=== PATIENT | female | born 1945 | race Caucasian/White ===

== ENCOUNTER 2016-08-17 17:03 | Inpatient (IN) | payer OTHER, BC ==
--- NOTE | 2016-08-17 19:03 | PDOC ---
History of Present Illness - General Chief Complaint: Injury Stated Complaint: FALL/LT LEG PAIN Time Seen by Provider: 08/17/16 18:58 History Source: Patient Exam Limitations: No Limitations - History of Present Illness Occurred: reports: just prior to arrival Past History - Travel Traveled outside of the country in the last 30 days: No Close contact w/someone who was outside of country & ill: No - Past Medical History Allergies/Adverse Reactions: Allergies Allergy/AdvReac Type Severity Reaction Status Date / Time No Known Drug Allergies Allergy Verified 08/17/16 17:29 Home Medications: Ambulatory Orders Atorvastatin Calcium [Lipitor] 10 mg PO DAILY 11/24/12 Fluticasone Propionate [Flovent Hfa] 1 inh IH DAILY 11/24/12 Losartan Potassium [Cozaar -] 50 mg PO DAILY 11/24/12 Timolol [Betimol] 1 drop OU DAILY 11/24/12 Tiotropium [place] [Spiriva] 1 inh IH DAILY 11/24/12 Travoprost (Benzalkonium) [Travatan 0.004% Eye Drop] 1 drop OU HS 11/24/12 Ca/D3/Mag#11/Zinc/Industrial Gas Fitter/Rene/Bor [Caltrate 600+D Plus Tablet] 1 each PO DAILY 10/28 Diltiazem HCl [Diltiazem ER] 120 mg PO DAILY 08/17/16 Anemia: No Asthma: Yes Cancer: Yes (RIGHT BREAST 2001,lung ca) Cardiac Disorders: No CVA: No COPD: Yes CHF: No Dementia: No Diabetes: No GI Disorders: No Disorders: No HTN: Yes Hypercholesterolemia: Yes Liver Disease: No Seizures: No Thyroid Disease: Yes (BENIGN NODULE) - Surgical History Abdominal Surgery: No Appendectomy: No Cardiac Surgery: No Cholecystectomy: No Lung Surgery: Yes (LUNG CA) Neurologic Surgery: No Orthopedic Surgery: No - Psycho/Social/Smoking Cessation Hx Suicidal Ideation: No Smoking Status: No Smoking History: Former smoker Have you smoked in the past 12 months: No Number of Cigarettes Smoked Daily: 0 If you are a former smoker, when did you quit?: 2010 Information on smoking cessation initiated: No Hx Alcohol Use: Yes (SOCIAL) Drug/Substance Use Hx: No Substance Use Type: None Hx Substance Use Treatment: No Trauma Specific PMHX - Complaint Specific PMHX Back Injury: No Neck Injury: No Review of Systems - Review of Systems Able to Perform ROS?: Yes Comments:: 08/17/16 19:02 CONSTITUTIONAL: Absent: fever, chills, diaphoresis, generalized weakness, malaise, loss of appetite HEENT: Absent: rhinorrhea, nasal congestion, throat pain, throat swelling, difficulty swallowing, mouth swelling, ear pain, eye pain, visual Changes CARDIOVASCULAR: Absent: chest pain, loss of consciousness, palpitations, irregular heart rate, peripheral edema RESPIRATORY: Absent: cough, shortness of breath, dyspnea with exertion, orthopnea, wheezing, stridor, hemoptysis GASTROINTESTINAL: Absent: abdominal pain, abdominal distension, nausea, vomiting, diarrhea, constipation, melena, hematochezia GENITOURINARY: Absent: dysuria, frequency, urgency, hesitancy, hematuria, flank pain, genital pain MUSCULOSKELETAL: Absent: myalgia, arthralgia, joint swelling SKIN: Absent: rash, itching, pallor HEMATOLOGIC/IMMUNOLOGIC: Absent: easy bleeding, easy bruising, lymphadenopathy, frequent infections ENDOCRINE: Absent: unexplained weight gain, unexplained weight loss, heat intolerance, cold intolerance NEUROLOGIC: Absent: headache, focal weakness or paresthesias, dizziness, unsteady gait, seizure, mental status changes, bladder or bowel incontinence PSYCHIATRIC: Absent: anxiety, depression, suicidal or homicidal ideation, hallucinations. Is the patient limited Citizen Of [place] proficient: No *Physical Exam - Vital Signs Last Vital Signs Temp Pulse Resp BP Pulse Ox 97.7 F 109 H 20 121/67 94 L 08/17/16 17:30 08/17/16 17:30 08/17/16 17:30 08/17/16 17:30 08/17/16 17:30 - Physical Exam Comments: 08/17/16 19:03 GENERAL: Well developed, well nourished. Awake and alert. No acute distress. HEENT: Normocephalic, atraumatic. PERRLA, EOMI. No conjunctival pallor. Sclera are non- icteric. Moist mucous membranes. Oropharynx is clear. NECK: Supple. Full ROM. No JVD. Carotid pulses 2+ and symmetric, without bruits. No thyromegaly. No lymphadenopathy. CARDIOVASCULAR: Regular rate and rhythm. No murmurs, rubs, or gallops. Distal pulses are 2+ and symmetric. PULMONARY: No evidence of respiratory distress. Lungs clear to auscultation bilaterally. No wheezing, rales or rhonchi. ABDOMINAL: Soft. Non-tender. Non-distended. No rebound or guarding. No organomegaly. Normoactive bowel sounds. MUSCULOSKELETAL Normal range of motion at all joints. No bony deformities or tenderness. No CVA tenderness. EXTREMITIES: No cyanosis. No clubbing. No edema. No calf tenderness. SKIN: Warm and dry. Normal capillary refill. No rashes. No jaundice. NEUROLOGICAL: Alert, awake, appropriate. Cranial nerves 2-12 intact. No deficits to light touch and temperature in face, upper extremities and lower extremities. No motor deficits in the in face, upper extremities and lower extremities. Normoreflexic in the upper and lower extremities. Normal speech. Toes are down- going bilaterally. Gait is normal without ataxia. PSYCHIATRIC: Cooperative. Good eye contact. Appropriate mood and affect. ED Treatment Course - LABORATORY CBC & Chemistry Diagram: 08/17/16 18:44 08/17/16 18:50 - RADIOLOGY Radiograph Interpretation: 08/17/16 19:46 CXR 2v: Mass to right upper lobe/no change from previous Pt h/o lung CA Port to left upper chest otherwise, no infiltrates Progress Note - Progress Note Progress Note: 71-year-old female presents to the emergency department via EMS without any complaints at this time. Patient states she slipped out of her slippers earlier when getting up from her couch and almost fell to the ground. She called EMS and signed an AMA. This evening, she tried to go to the bathroom but her slippers slid while walking on the carpet and she eased herself onto the floor. Patient denies any headache, dizziness, lightheadedness, visual disturbance, neck pain, back pain, chest pain, shortness of breath, abdominal pains, extremity numbness or tingling sensation. 2028hrs; Called Dr. Cowan [phone] 2053hrs: 2nd call [place] [phone] *DC/Admit/Observation/Transfer Diagnosis at time of Disposition: Urinary tract infection Qualifiers: Urinary tract infection type: acute cystitis Hematuria presence: without hematuria Qualified Code(s): N30.00 - Acute cystitis without hematuria Fall Qualifiers: Encounter type: initial encounter Qualified Code(s): W19.XXXA - Unspecified fall, initial encounter - Discharge Dispostion Condition at time of disposition: Guarded Admit: Yes
[2016-08-17 19:29] LABS: MCH 25.7 pg (25.7-33.7); MCHC 31.8 g/dl (32.0-36.0); MEAN CELL VOLUME 80.7 fl (80-96); MEAN PLT VOLUME 8.1 fl (7.5-11.1); PLATELET COUNT 396 K/MM3 (134-434); RDW 18.2 % (11.6-15.6)
[2016-08-17 19:29] LABS: URINE APPEARANCE SLCLOUDY; URINE BILIRUBIN NEGATIVE (NEGATIVE); URINE COLOR YELLOW; URINE GLUCOSE (UA) NEGATIVE (NEGATIVE); URINE KETONE TRACE (NEGATIVE); URINE NITRITE POSITIVE (NEGATIVE); URINE UROBILINOGEN NEGATIVE E.U./dl (0.2-1.0)
[2016-08-17 19:30] LABS: URINE BLOOD 1+ (NEGATIVE); URINE LEUK ESTERASE 2+ (NEGATIVE); URINE PROTEIN 1+ (NEGATIVE)
[2016-08-17 19:40] LABS: INR 1.17 (0.82-1.09); PROTHROMBIN TIME (PATIENT) 12.9 SEC (9.98-11.88)
[2016-08-17 19:50] LABS: ALBUMIN 3.5 g/dl (3.4-5.0); ANION GAP 12 (8-16); BILIRUBIN,TOTAL 0.7 mg/dL (0.2-1.0); CALCIUM 10.5 mg/dL (8.5-10.1); CO2 26 mmol/L (21-32); CREATININE 0.7 mg/dL (0.55-1.02); GLUCOSE,RANDOM 91 mg/dL (74-106); SGOT/AST 16 U/L (15-37); SGPT/ALT 13 U/L (12-78); TOT PROT 7.3 g/dl (6.4-8.2)
[2016-08-17 19:53] LABS: ALK PHOS 90 U/L (45-117); TROPONIN I < 0.02 ng/ml (0.00-0.05)
[2016-08-17 20:00] LABS: URINE BACTERIA MODERATE /hpf (NONE SEEN); URINE HYALINE CAST 1 /lpf; URINE MUCUS RARE; URINE RBC 2 /hpf (0-3); URINE WBC 33 /hpf (3-5)
[2016-08-17 21:01] LABS: PLATELET ESTIMATE ADEQUATE (NORMAL); TOXIC GRANULATION 1+
[2016-08-17] MEDS ORDERED: CEFTRIAXONE 1,000 MG in DEXTROSE 5%-WATER - 50 ML IVPB ONE (21:03)
[2016-08-17] MEDS ORDERED: CEFTRIAXONE 50 ML ONE (21:10)
[2016-08-17] MEDS: ATORVASTATIN CA 10 MG TABLET (FP) PO SCH (23:32)
[2016-08-17] MEDS: LATANOPROST 0.005% OPHTH SOLN 2.5ML BOTTLE OU SCH (23:33)
[2016-08-18 00:30] VITALS: BMI 19.3
--- NOTE | 2016-08-18 08:59 | PN ---
Progress Note, Physician Chief Complaint: ID Says she fell at home Denies any fever chill urinary complaints - Current Medication List Current Medications: Active Medications Aclidinium [place] (Tudorza -) 1 puff IH BID [facility] Atorvastatin Calcium (Lipitor -) 10 mg PO HS [facility] Last Admin: 08/17/16 23:32 Dose: Not Given Diltiazem HCl (Cardizem Cd -) 120 mg PO DAILY [facility] Latanoprost (Xalatan 0.005% Eye Drops -) 1 drop OU HS [facility] Last Admin: 08/17/16 23:33 Dose: Not Given Losartan Potassium (Cozaar -) 50 mg PO DAILY [facility] Non-Formulary Medication (Ca/D3/Mag#11/Zinc/Professional Driver/Rene/Bor [Caltrate 600+D Plus Tablet]) 1 each PO DAILY [facility] Non-Formulary Medication (Fluticasone Propionate [Flovent Hfa]) 1 inh IH DAILY [place] Timolol Maleate (Timoptic 0.25%) 1 drop OU DAILY [facility] - Objective Vital Signs: Vital Signs Temperature 98 F 08/18/16 05:52 Pulse Rate 96 H 08/18/16 05:52 Respiratory Rate 20 08/18/16 05:52 Blood Pressure 110/60 08/18/16 05:52 O2 Sat by Pulse Oximetry (%) 97 08/18/16 00:30 Constitutional: Yes: No Distress Neck: Yes: WNL, Supple Cardiovascular: Yes: Regular Rate and Rhythm, S1, S2, Other (port). No: Murmur Respiratory: Yes: WNL, Regular, CTA Bilaterally Gastrointestinal: Yes: Soft. No: Tenderness, Rebound Edema: No Labs: INR, PTT INR 1.17 (0.82-1.09) H 08/17/16 18:44 Problem List - Problems (1) UTI (urinary tract infection) Code(s): N39.0 - URINARY TRACT INFECTION, SITE NOT SPECIFIED Qualifiers: Urinary tract infection type: acute cystitis Hematuria presence: without hematuria Qualified Code(s): N30.00 - Acute cystitis without hematuria (2) Lung cancer Code(s): C34.90 - MALIGNANT NEOPLASM OF UNSP PART OF UNSP BRONCHUS OR LUNG (3) Leukocytosis Code(s): D72.829 - ELEVATED WHITE BLOOD CELL COUNT, UNSPECIFIED Assessment/Plan Laboratory Tests 08/17/16 08/17/1608/17/17 18:44 18:50 19:05 WBC 23.0 H Hgb 11.3 Hct 35.4 Plt Count 396 Neutrophils % 78.0 Monocytes % 6.0 D Basophils % 1.0 Band Neutrophils 1.0 BUN 18 D Creatinine 0.7 Urine WBC 33 Urine Bacteria Moderate Assessment Falls Leukocytosis but looks well Chemotherapy for lung CA UTI Plan Blood cultures Vancomycin 1 gr and continue Ceftriax[address] Dr Palacios to see Nacho COLLINS
[2016-08-18 09:16] LABS: BASOPHIL 0.5 % (0-2.0); EOSINOPHIL 0.8 % (0-4.5); MCH 25.5 pg (25.7-33.7); MCHC 31.9 g/dl (32.0-36.0); MEAN PLT VOLUME 7.5 fl (7.5-11.1); PLATELET COUNT 380 K/MM3 (134-434); WHITE BLOOD COUNT 20.8 K/mm3 (4.0-10.0)
[2016-08-18] MEDS ORDERED: VANCOMYCIN 1 GRAM (PRE-DOCKED) 250 ML IVPB ONE (09:30)
[2016-08-18 09:43] LABS: ALBUMIN 3.1 g/dl (3.4-5.0); ANION GAP 10 (8-16); CALCIUM 10.2 mg/dL (8.5-10.1); CO2 27 mmol/L (21-32); CREATININE 0.8 mg/dL (0.55-1.02); GLUCOSE,RANDOM 156 mg/dL (74-106); SGOT/AST 15 U/L (15-37); SGPT/ALT 14 U/L (12-78); TOT PROT 6.6 g/dl (6.4-8.2)
[2016-08-18] MEDS: LOSARTAN POTASSIUM 25 MG TABLET PO SCH (09:45)
[2016-08-18 09:46] LABS: ALK PHOS 80 U/L (45-117); BILIRUBIN,TOTAL 0.6 mg/dL (0.2-1.0); TROPONIN I < 0.02 ng/ml (0.00-0.05)
[2016-08-18] MEDS: ACLIDINIUM BROMIDE 400 MCG/INH AERO.POWD IH SCH ×2 (09:49→21:21)
[2016-08-18] MEDS: TIMOLOL 0.25% OPHTHALMIC SOL 5 ML BOTTLE OU SCH (09:50)
[2016-08-18] MEDS ORDERED: CALCIUM 500MG/VIT-D 200 UNITS COMBO TABLET (FP) PO SCH (10:00)
--- NOTE | 2016-08-18 10:13 | CONS ---
DATE OF CONSULTATION: DATE OF DICTATION: 08/18/2016 HISTORY OF PRESENT ILLNESS: This is a 71-year-old female with a known history of lung cancer who I am asked to see after she was admitted for falls at home yesterday and was noted to have an elevated white count of 23,000. The patient has been previously admitted to [facility] and well known in particular to Dr. Palacios, who has been following her for lung cancer. She has a prior history of breast carcinoma, status post chemotherapy and hormonal therapy, and now more recently diagnosed with lung cancer for which she has been treated with Alimta, carboplatinum, and Avastin. She has been chronically anemic in the 23 to 24 range and required blood transfusions. She also has received Neulasta apparently for adjunctive treatment with her chemotherapy. She had no fever on admission and was given a dose of ceftriaxone after a urine culture showed some white cells. The patient has a history of UTIs in the past but currently denies any urinary complaints. In fact, she has no complaints whatsoever and looks well. She denied chills, abdominal pain, cough, or shortness of breath. PAST MEDICAL HISTORY: As noted above. Benign thyroid nodule and hyperlipidemia. MEDICATIONS AT HOME: Chemotherapy as outlined. ALLERGIES: None known. SOCIAL HISTORY: Former heavy cigarette smoker; quit in 2010. Occasional alcohol use but no substance abuse history. FAMILY HISTORY: Reviewed and noncontributory. REVIEW OF SYSTEMS: Respiratory: No cough or shortness of breath, hemoptysis. Cardiac: No chest pain, palpitations, heart murmur. Gastrointestinal: No nausea, vomiting, abdominal pain, diarrhea. Genitourinary: No dysuria, hematuria, urinary frequency. PHYSICAL EXAMINATION: General: Revealed a pleasant elderly woman in no acute distress. Vital Signs: Temperature was 98, pulse 96, blood pressure 110/60, respirations 20. Neck: Supple. Chest: Symmetrical with a left LifePort in place. Lungs: Clear to P and A. Heart: S1, S2. Regular rhythm. No murmur. Abdomen: Soft, nontender, without hepatosplenomegaly. Extremities: Without clubbing, cyanosis. No edema. LABORATORY DATA: The white count was 23,000 with a hemoglobin of 11, platelets of 396 with 78% polys, 11 lymphocytes, 6 monocytes, 1 eosinophil, 1 basophil, and 1 band. The INR was 1.17. BUN 18, creatinine 0.7. Urinalysis with 2+ leukocyte esterase, 2 RBCs, 33 WBCs, and moderate bacteria noted. A chest x-ray was reviewed and shows a large mass in the right mid lung area measuring 10.5 cm with COPD changes and bullae noted. ASSESSMENT: A 71-year-old female admitted with falls at home, no fever, noted to have a white count of 23,000 and the absence of any obvious symptomatology. Incidental finding of white cells on her urinalysis, but this may be chronic and clinically insignificant. It may be that her leukemoid reaction is secondary to recent Neulasta; however, given her fragile status as a chemotherapy patient, I will give her 1 g of vancomycin x1 pending blood cultures and continue ceftriaxone pending urine culture and await Dr. Palacios's consultation regarding whether or not she may have received Neulasta recently or whether her WBC elevated at baseline. CARTER STEVEN M.D. [id number] MTDD
--- NOTE | 2016-08-18 12:38 | HP ---
Admitting History and Physical - Primary Care Physician PCP: Maxim Cowan - Admission Chief Complaint: UTI. FALL History Source: Medical Record - Smoking History Smoking history: Former smoker Have you smoked in the past 12 months: No Aproximately how many cigarettes per day: 0 If you are a former smoker, when did you quit?: 2010 - Alcohol/Substance Use Hx Alcohol Use: Yes (SOCIAL) Home Medications - Allergies Allergies/Adverse Reactions: Allergies Allergy/AdvReac Type Severity Reaction Status Date / Time No Known Drug Allergies Allergy Verified 08/17/16 17:29 - Home Medications Home Medications: Ambulatory Orders Atorvastatin Calcium [Lipitor] 10 mg PO DAILY 11/24/12 Fluticasone Propionate [Flovent Hfa] 1 inh IH DAILY 11/24/12 Losartan Potassium [Cozaar -] 50 mg PO DAILY 11/24/12 Timolol [Betimol] 1 drop OU DAILY 11/24/12 Tiotropium [place] [Spiriva] 1 inh IH DAILY 11/24/12 Travoprost (Benzalkonium) [Travatan 0.004% Eye Drop] 1 drop OU HS 11/24/12 Ca/D3/Mag#11/Zinc/Radio Communications Mechanician/Rnee/Bor [Caltrate 600+D Plus Tablet] 1 each PO DAILY 10/28 Diltiazem HCl [Diltiazem ER] 120 mg PO DAILY 08/17/16 Review of Systems - Review of Systems Constitutional: denies: Chills, Fever Cardiovascular: denies: Chest Pain Respiratory: denies: SOB Gastrointestinal: denies: Abdominal Pain Neurological: reports: Weakness (NEW LUE WEAKNESS) Physical Examination Vital Signs: Vital Signs Temperature 98.4 F 08/18/16 10:00 Pulse Rate 114 H 08/18/16 10:00 Respiratory Rate 20 08/18/16 10:00 Blood Pressure 100/58 08/18/16 10:00 O2 Sat by Pulse Oximetry (%) 97 08/18/16 00:30 Constitutional: Yes: Calm Cardiovascular: Yes: Regular Rate and Rhythm, S1, S2 Respiratory: Yes: CTA Bilaterally Gastrointestinal: Yes: Normal Bowel Sounds, Soft Edema: No ...Motor Strength: LUE (2-3/5) Labs: CBC, BMP 08/18/16 09:00 08/18/16 09:00 Imaging - Results Chest X-ray: Report Reviewed Problem List - Problems (1) Falls Code(s): W19.XXXA - UNSPECIFIED FALL, INITIAL ENCOUNTER Qualifiers: Encounter type: initial encounter Qualified Code(s): W19.XXXA - Unspecified fall, initial encounter (2) Lung cancer Code(s): C34.90 - MALIGNANT NEOPLASM OF UNSP PART OF UNSP BRONCHUS OR LUNG (3) UTI (urinary tract infection) Code(s): N39.0 - URINARY TRACT INFECTION, SITE NOT SPECIFIED Qualifiers: Urinary tract infection type: acute cystitis Hematuria presence: without hematuria Qualified Code(s): N30.00 - Acute cystitis without hematuria (4) Asthma Code(s): J45.909 - UNSPECIFIED ASTHMA, UNCOMPLICATED (5) COPD (chronic obstructive pulmonary disease) Code(s): J44.9 - CHRONIC OBSTRUCTIVE PULMONARY DISEASE, UNSPECIFIED (6) HTN (hypertension) Code(s): I10 - ESSENTIAL (PRIMARY) HYPERTENSION (7) Left arm weakness Code(s): M62.81 - MUSCLE WEAKNESS (GENERALIZED) Assessment/Plan 71-year-old female presents to the emergency department via EMS without any complaints at this time. Patient states she slipped out of her slippers earlier when getting up from her couch and almost fell to the ground. She called EMS and signed an AMA. This evening, she tried to go to the bathroom but her slippers slid while walking on the carpet and she eased herself onto the floor. Patient denies any headache, dizziness, lightheadedness, visual disturbance, neck pain, back pain, chest pain, shortness of breath, abdominal pains, extremity numbness or tingling sensation. (1) Falls Code(s): W19.XXXA - UNSPECIFIED FALL, INITIAL ENCOUNTER Qualifiers: Encounter type: initial encounter Qualified Code(s): W19.XXXA - Unspecified fall, initial encounter LIKELY MECHANICAL PT CONSULTED (2) Lung cancer Code(s): C34.90 - MALIGNANT NEOPLASM OF UNSP PART OF UNSP BRONCHUS OR LUNG CXr -> KNOWN R MASS. R/O R PTX -> PULM Ca++ >10 HOME Ca STOPPED RENAL CONSULTED (3) UTI (urinary tract infection) Code(s): N39.0 - URINARY TRACT INFECTION, SITE NOT SPECIFIED Qualifiers: Urinary tract infection type: acute cystitis Hematuria presence: without hematuria Qualified Code(s): N30.00 - Acute cystitis without hematuria APPRECIATE ID CONSULT IV ABx F/U CULTURES (4) Asthma Code(s): J45.909 - UNSPECIFIED ASTHMA, UNCOMPLICATED ALB NEB PRN (5) COPD (chronic obstructive pulmonary disease) Code(s): J44.9 - CHRONIC OBSTRUCTIVE PULMONARY DISEASE, UNSPECIFIED (6) HTN (hypertension) Code(s): I10 - ESSENTIAL (PRIMARY) HYPERTENSION ACCEPTABLE CONTROL MONITOR (7) Left arm weakness Code(s): M62.81 - MUSCLE WEAKNESS (GENERALIZED) NEW DENY HEAD TRAUMA APPRECIATE RENAL NOTE -> AGREE - F/U CTB & XRay HISTOLOGY TECHNOLOGIST FM
[2016-08-18] MEDS ORDERED: ALBUTEROL SO4 0.083% IH SOL 2.5 MG/3 ML VIAL.NEB. NEB PRN (12:43)
--- NOTE | 2016-08-18 14:21 | CONSULT ---
Consult - text type - Consultation Consultation Note: Renal Consult for hypercalcemia This is a 71 year old woman with PMhx of Breast Ca s/p Chemo and hormonal therapy, Adenocarcinoma of the Lung currently on chemotherapy presented s/p mechanical fall at home and found to have Corrected CA of 10.8. Pt states that she has had an elevated CA in the past that was attributed to her lung Ca. Pt denies any POLANCO, confusion, lethargy, weakness, abd pain, flank pain. No hx of kidney stones. No POLANCO, chest pain, sob, abd pain, N/V/D. Pt unable to raise her left arm. can close her wrists and has sensation. PMhx: as above Allergies: NKDA Family Hx: NC Social Hx: Former Smoker ROS: as per HPI, all other pertinent ros negative Home Meds: Home Medications Medication Instructions Recorded Atorvastatin Calcium [Lipitor] 10 mg PO DAILY 11/24/12 Fluticasone Propionate [Flovent 1 inh IH DAILY 11/24/12 Hfa] Losartan Potassium [Cozaar -] 50 mg PO DAILY 11/24/12 Timolol [Betimol] 1 drop OU DAILY 11/24/12 Tiotropium [place] [Spiriva] 1 inh IH DAILY 11/24/12 Travoprost (Benzalkonium) 1 drop OU HS 11/24/12 [Travatan 0.004% Eye Drop] Ca/D3/Mag#11/Zinc/Adobe Architect/Rene/Bor 1 each PO DAILY 07/18/15 [Caltrate 600+D Plus Tablet] Diltiazem HCl [Diltiazem ER] 120 mg PO DAILY 08/17/16 Vital Signs Temperature 98.4 F 08/18/16 10:00 Pulse Rate 114 H 08/18/16 10:00 Respiratory Rate 20 08/18/16 10:00 Blood Pressure 100/58 08/18/16 10:00 O2 Sat by Pulse Oximetry (%) 97 08/18/16 00:30 Intake & Output 08/15/16 08/16/16 08/17/16 08/18/16 23:59 23:59 23:59 23:59 Intake Total 100 100 Output Total 2 Balance 100 98 Weight 122 lb 113 lb Gen: NAD, awake and alert HEENT: NC/AT, MMM, No JVD CVS: RRR, No M/R Lungs: Dec BS left lung Abd: soft NT/ND Ext: No edema, clubbing or cyanosis. Left shoulder weakness : No bladder distension Neuro: AAOX3, weakness of left shoulder CBC, BMP 08/18/16 09:00 08/18/16 09:00 Current Medications Aclidinium [place] (Tudorza -) 1 puff IH BID [facility] Last Admin: 08/18/16 09:49 Dose: Not Given Albuterol Sulfate (Ventolin 0.083% Nebulizer Soln -) 1 amp NEB Q4H PRN PRN Reason: SHORT OF BREATH/WHEEZING Atorvastatin Calcium (Lipitor -) 10 mg PO HS [facility] Last Admin: 08/17/16 23:32 Dose: Not Given Diltiazem HCl (Cardizem Cd -) 120 mg PO DAILY [facility] Last Admin: 08/18/16 09:45 Dose: 120 mg Latanoprost (Xalatan 0.005% Eye Drops -) 1 drop OU HS [facility] Last Admin: 08/17/16 23:33 Dose: Not Given Losartan Potassium (Cozaar -) 50 mg PO DAILY [facility] Last Admin: 08/18/16 09:45 Dose: 50 mg Non-Formulary Medication (Fluticasone Propionate [Flovent Hfa]) 1 inh IH DAILY [facility] Timolol Maleate (Timoptic 0.25%) 1 drop OU DAILY [facility] Last Admin: 08/18/16 09:50 Dose: Not Given A/P 71 year old woman with PMhx of Breast Ca s/p Chemo and hormonal therapy, Adenocarcinoma of the Lung currently on chemotherapy presented s/p mechanical fall at home and found to have Corrected CA of 10.8. #Hypercalcemia of Malignancy Corrected Ca is 10.8 Check PTH, PTH related peptide Would continue Gentle IVF hydration at this time No indication for calcitionin or bisphosphatate at this time Trend Ca and Alb #Left shoulder weakness s/p Fall unlikely to be CVA but since pt says that this is new onset and that she had a unwitnessed fall will check CT of the head Check left shoulder X-ray to r/o fracture or dislocation #Lung Ca Supportive Care Chemo as per Oncology #Hypertension Continue Losartan, Diltizem Thank you Will follow Vince Cole DO
[2016-08-18] MEDS ORDERED: SODIUM CHLORIDE 1,000 ML IV SCH (14:30)
--- NOTE | 2016-08-18 17:52 | EKG ---
Test Reason : Blood Pressure : / mmHG Vent. Rate : 106 BPM Atrial Rate : 106 BPM P-R Int : 142 ms QRS Dur : 072 ms QT Int : 324 ms P-R-T Axes : 070 061 058 degrees QTc Int : 430 ms POOR DATA QUALITY, INTERPRETATION MAY BE ADVERSELY AFFECTED SINUS TACHYCARDIA OTHERWISE NORMAL ECG WHEN COMPARED WITH ECG OF 01-JAN-2013 12:01, VENT. RATE HAS INCREASED BY 47 BPM Confirmed by SHAWN COLLINS, NUPUR ([id number]) on 08/18/2016 5:51:26 PM Referred By: Confirmed By:NUPUR ESCOBAR MD
[2016-08-18] MEDS ORDERED: PT OWN MED DRAWER 7, Y5N ONE (21:18)
[2016-08-18] MEDS: ATORVASTATIN CA 10 MG TABLET (FP) PO SCH (21:21)
[2016-08-18] MEDS: LATANOPROST 0.005% OPHTH SOLN 2.5ML BOTTLE OU SCH (21:22)
[2016-08-19] MEDS ORDERED: PT OWN MED DRAWER 7, Y5N ONE ×2 (02:23→21:54)
[2016-08-19 08:34] LABS: BASOPHIL 0.4 % (0-2.0); EOSINOPHIL 1.6 % (0-4.5); MCH 25.8 pg (25.7-33.7); MCHC 31.9 g/dl (32.0-36.0); MEAN CELL VOLUME 80.9 fl (80-96); MEAN PLT VOLUME 7.8 fl (7.5-11.1); NEUTROPHILS 79.1 % (42.8-82.8); PLATELET COUNT 302 K/MM3 (134-434); RDW 18.2 % (11.6-15.6); WHITE BLOOD COUNT 14.4 K/mm3 (4.0-10.0)
[2016-08-19 08:39] LABS: ALBUMIN 2.7 g/dl (3.4-5.0); ALK PHOS 63 U/L (45-117); ANION GAP 12 (8-16); BILIRUBIN,TOTAL 0.4 mg/dL (0.2-1.0); CALCIUM 8.9 mg/dL (8.5-10.1); CO2 24 mmol/L (21-32); CREATININE 0.6 mg/dL (0.55-1.02); GLUCOSE,RANDOM 84 mg/dL (74-106); SGOT/AST 12 U/L (15-37); SGPT/ALT 10 U/L (12-78); TOT PROT 5.8 g/dl (6.4-8.2)
[2016-08-19] MEDS: LOSARTAN POTASSIUM 25 MG TABLET PO SCH (09:50)
[2016-08-19] MEDS: ACLIDINIUM BROMIDE 400 MCG/INH AERO.POWD IH SCH ×2 (09:53→21:56)
[2016-08-19] MEDS: TIMOLOL 0.25% OPHTHALMIC SOL 5 ML BOTTLE OU SCH (09:53)
--- NOTE | 2016-08-19 10:00 | PN ---
Progress Note, Physician Chief Complaint: NO CHANGE NO DISTRESS UNDERSTANDS THAT HAS BRAIN METS - Current Medication List Current Medications: Active Medications Aclidinium [place] (Tudorza -) 1 puff IH BID [facility] Last Admin: 08/19/16 09:53 Dose: Not Given Albuterol Sulfate (Ventolin 0.083% Nebulizer Soln -) 1 amp NEB Q4H PRN PRN Reason: SHORT OF BREATH/WHEEZING Atorvastatin Calcium (Lipitor -) 10 mg PO HS [facility] Last Admin: 08/18/16 21:21 Dose: 10 mg Diltiazem HCl (Cardizem Cd -) 120 mg PO DAILY [facility] Last Admin: 08/19/16 09:50 Dose: 120 mg Sodium Chloride (Normal Saline -) 1,000 mls @ 83 mls/hr IV ASDIR [facility] Stop: 08/19/16 14:29 Last Admin: 08/18/16 14:58 Dose: 83 mls/hr Latanoprost (Xalatan 0.005% Eye Drops -) 1 drop OU HS [facility] Last Admin: 08/18/16 21:22 Dose: 1 drop Losartan Potassium (Cozaar -) 50 mg PO DAILY [facility] Last Admin: 08/19/16 09:50 Dose: 50 mg Non-Formulary Medication (Fluticasone Propionate [Flovent Hfa]) 1 inh IH DAILY [facility] Timolol Maleate (Timoptic 0.25%) 1 drop OU DAILY [facility] Last Admin: 08/19/16 09:53 Dose: Not Given - Objective Vital Signs: Vital Signs Temperature 98.2 F 08/19/16 05:59 Pulse Rate 20 L 08/19/16 05:59 Respiratory Rate 20 08/19/16 05:59 Blood Pressure 110/78 08/19/16 05:59 O2 Sat by Pulse Oximetry (%) 97 08/18/16 00:30 Constitutional: Yes: Calm Cardiovascular: Yes: Regular Rate and Rhythm, S1, S2 Respiratory: Yes: CTA Bilaterally Gastrointestinal: Yes: Normal Bowel Sounds, Soft Edema: No ...Motor Strength: LUE (2-3/5) Labs: CBC, BMP 08/19/16 06:20 08/19/16 06:20 INR, PTT INR 1.17 (0.82-1.09) H 08/17/16 18:44 Problem List - Problems (1) Falls Code(s): W19.XXXA - UNSPECIFIED FALL, INITIAL ENCOUNTER Qualifiers: Encounter type: initial encounter Qualified Code(s): W19.XXXA - Unspecified fall, initial encounter (2) Lung cancer Code(s): C34.90 - MALIGNANT NEOPLASM OF UNSP PART OF UNSP BRONCHUS OR LUNG (3) UTI (urinary tract infection) Code(s): N39.0 - URINARY TRACT INFECTION, SITE NOT SPECIFIED Qualifiers: Urinary tract infection type: acute cystitis Hematuria presence: without hematuria Qualified Code(s): N30.00 - Acute cystitis without hematuria (4) Asthma Code(s): J45.909 - UNSPECIFIED ASTHMA, UNCOMPLICATED (5) COPD (chronic obstructive pulmonary disease) Code(s): J44.9 - CHRONIC OBSTRUCTIVE PULMONARY DISEASE, UNSPECIFIED (6) HTN (hypertension) Code(s): I10 - ESSENTIAL (PRIMARY) HYPERTENSION (7) Left arm weakness Code(s): M62.81 - MUSCLE WEAKNESS (GENERALIZED) Assessment/Plan 71-year-old female presents to the emergency department via EMS without any complaints at this time. Patient states she slipped out of her slippers earlier when getting up from her couch and almost fell to the ground. She called EMS and signed an AMA. This evening, she tried to go to the bathroom but her slippers slid while walking on the carpet and she eased herself onto the floor. Patient denies any headache, dizziness, lightheadedness, visual disturbance, neck pain, back pain, chest pain, shortness of breath, abdominal pains, extremity numbness or tingling sensation. (1) Falls Code(s): W19.XXXA - UNSPECIFIED FALL, INITIAL ENCOUNTER Qualifiers: Encounter type: initial encounter Qualified Code(s): W19.XXXA - Unspecified fall, initial encounter LIKELY MECHANICAL PT CONSULTED (2) Lung cancer Code(s): C34.90 - MALIGNANT NEOPLASM OF UNSP PART OF UNSP BRONCHUS OR LUNG CXr -> KNOWN R MASS. R/O R PTX -> PULM HYPERCa++ RESOLVED HOME Ca STOPPED RENAL CONSULT NOTED -> F/U W/U SQ HEPARIN -> CONSIDER LOVENOX FOR VTE Px (3) UTI (urinary tract infection) Code(s): N39.0 - URINARY TRACT INFECTION, SITE NOT SPECIFIED Qualifiers: Urinary tract infection type: acute cystitis Hematuria presence: without hematuria Qualified Code(s): N30.00 - Acute cystitis without hematuria APPRECIATE ID CONSULT IV ABx UCx +meli (4) Asthma Code(s): J45.909 - UNSPECIFIED ASTHMA, UNCOMPLICATED ALB NEB PRN (5) COPD (chronic obstructive pulmonary disease) Code(s): J44.9 - CHRONIC OBSTRUCTIVE PULMONARY DISEASE, UNSPECIFIED (6) HTN (hypertension) Code(s): I10 - ESSENTIAL (PRIMARY) HYPERTENSION ACCEPTABLE CONTROL MONITOR (7) Left arm weakness Code(s): M62.81 - MUSCLE WEAKNESS (GENERALIZED) NEW DENY HEAD TRAUMA APPRECIATE RENAL NOTE -> AGREE CTB SHOWS BRAIN METS (2016 MRI BRAIN NEG) -> NEURO/ONCO/NEUROSURG ON CASE XRay NEG IV STEROIDS WAX PATTERN COATER FM
--- NOTE | 2016-08-19 10:17 | PN ---
Progress Note (short form) - Note Progress Note: NEUROSURGERY CONSULT DICTATED R breast CA 2000 s/p Chemo and hormonal therapy, Adenocarcinoma of the Lung currently on chemotherapy c/o mechanical fall at home ""slipping out of my slippers"). Pt denies any POLANCO, confusion, lethargy, N/V. No sz. Some L arm weakness. PE: AF, VSS General- healed upper sternal, R chest, L chest (port) incisions. CN- intact except minimal assymmetry L nasolabial fold; Motor- L UE 2-3/5 except left hand 3-4-; L LE 4/5; Sensation- intact LT; DTR- 3+; L toe upgoing; cerebellar- intact R FTN, L sided limited by weakness Head CT- R frontal convexity 1.5 cm, R basal ganglia/thalamic 2.5 cm, L lateral ventricular/thalamic 2.5 cm, and L cerebellar 2 cm hyperdense lesions, minimal edema WBC 23 now 14.1; BUN 12, Cr 0.6 Blood culture negative to date Probable multifocal metastases vs lymphoma Brain MRI with/without marc recommended to better delineate total # of lesions Consider Keppra for Sz prophylaxis Consider baseline rad-on consult/input No steroid for now given minimal vasogenic edema
--- NOTE | 2016-08-19 11:30 | CON.PULM ---
Consult Consult Specialty:: PULM/CCM Referred by:: TAWNYA Reason for Consultation:: abnormal CXR - History of Present Illness Chief Complaint: fall History of Present Illness: 71 F, Breast CA s/p Chemo and hormonal therapy, Adenocarcinoma of the Right lung (invading into the ribs and chest wall), currently on chemotherapy. History of mechanical fall x 2. Denies fever or chills. No travel history or sick contacts. No hemoptysis. No SOB. (+) right chest wall musculoskeletal discomfort. CXR : question of RUL PTX -> CT chest 05/2016 -> Large apical bullae +/- loculated PTX. 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, Seizure Pulmonary: Yes: Bronchitis, Cancer, COPD - Alcohol/Substance Use Hx Alcohol Use: Yes (SOCIAL) - Smoking History Smoking history: Former smoker Have you smoked in the past 12 months: No Aproximately how many cigarettes per day: 0 If you are a former smoker, when did you quit?: 2010 Home Medications - Allergies Allergies/Adverse Reactions: Allergies Allergy/AdvReac Type Severity Reaction Status Date / Time No Known Drug Allergies Allergy Verified 08/17/16 17:29 - Home Medications Home Medications: Ambulatory Orders Atorvastatin Calcium [Lipitor] 10 mg PO DAILY 11/24/12 Fluticasone Propionate [Flovent Hfa] 1 inh IH DAILY 11/24/12 Losartan Potassium [Cozaar -] 50 mg PO DAILY 11/24/12 Timolol [Betimol] 1 drop OU DAILY 11/24/12 Tiotropium [place] [Spiriva] 1 inh IH DAILY 11/24/12 Travoprost (Benzalkonium) [Travatan 0.004% Eye Drop] 1 drop OU HS 11/24/12 Ca/D3/Mag#11/Zinc/Lion Trainer/Rene/Bor [Caltrate 600+D Plus Tablet] 1 each PO DAILY 10/28 Diltiazem HCl [Diltiazem ER] 120 mg PO DAILY 08/17/16 Review of Systems - Review of Systems Constitutional: reports: Malaise, Weakness. denies: Chills, Fever, Night Sweats Eyes: reports: No Symptoms HENT: reports: No Symptoms Neck: reports: No Symptoms Cardiovascular: denies: Chest Pain, Edema, Palpitations, Shortness of Breath Respiratory: reports: Cough, Snoring. denies: Hemoptysis, SOB, SOB on Exertion , Wheezing Gastrointestinal: reports: No Symptoms Genitourinary: reports: No Symptoms Musculoskeletal: reports: Muscle Pain, Muscle Cramps Integumentary: reports: No Symptoms Neurological: reports: Dizziness, Headache, Incoordination, Unsteady Gait. denies: Seizure Endocrine: reports: No Symptoms Hematology/Lymphatic: reports: No Symptoms Psychiatric: reports: No Symptoms Physical Exam Vital Sings: Vital Signs Temperature 98.1 F 08/19/16 10:00 Pulse Rate 92 H 08/19/16 10:00 Respiratory Rate 20 08/19/16 10:00 Blood Pressure 112/70 08/19/16 10:00 O2 Sat by Pulse Oximetry (%) 97 08/18/16 00:30 Constitutional: Yes: Well Nourished, No Distress, Calm Eyes: Yes: Conjunctiva Clear, EOM Intact HENT: Yes: Atraumatic, Normocephalic Neck: Yes: Supple, Trachea Midline Cardiovascular: Yes: Regular Rate and Rhythm Respiratory: Yes: Cough, Diminished. No: Accessory Muscle Use, Rales, Rhonchi, SOB, Stridor, Tachypnea, Wheezes ...Inspection: Yes: WNL ...Clubbing: No Gastrointestinal: Yes: Normal Bowel Sounds, Soft Musculoskeletal: Yes: WNL Extremities: Yes: WNL Edema: No Peripheral Pulses WNL: Yes Integumentary: Yes: WNL Neurological: Yes: Alert, Oriented Psychiatric: Yes: Alert, Oriented Labs: CBC, BMP 08/19/16 06:20 08/19/16 06:20 Imaging - Results Chest X-ray: Report Reviewed, Image Reviewed Problem List - Problems (1) Asthma Code(s): J45.909 - UNSPECIFIED ASTHMA, UNCOMPLICATED (2) COPD (chronic obstructive pulmonary disease) Code(s): J44.9 - CHRONIC OBSTRUCTIVE PULMONARY DISEASE, UNSPECIFIED (3) Falls Code(s): W19.XXXA - UNSPECIFIED FALL, INITIAL ENCOUNTER Qualifiers: Encounter type: initial encounter Qualified Code(s): W19.XXXA - Unspecified fall, initial encounter (4) HTN (hypertension) Code(s): I10 - ESSENTIAL (PRIMARY) HYPERTENSION (5) Lung cancer Code(s): C34.90 - MALIGNANT NEOPLASM OF UNSP PART OF UNSP BRONCHUS OR LUNG (6) Bulla of lung Code(s): J43.9 - EMPHYSEMA, UNSPECIFIED Assessment/Plan CT Imaging from 05/2016 reveals a RUL bulla +/- loculated PTX (low suspicion) I would not repeat imaging at this time due to a lack of respiratory symptoms. If new symptoms -> CT For MRI brain to further assess brain mets VTE prophylaxis O2 as needed BD TX PRN Will follow Thank you. Dr Sherwood
--- NOTE | 2016-08-19 11:38 | CONS ---
DATE OF CONSULTATION: DATE OF DICTATION: 08/19/2016 REQUESTING PHYSICIAN: Hitesh Castrejon MD BPM DEVELOPER: Carina De La Torre MD, Neurosurgery CHIEF COMPLAINT: Brain lesion. HISTORY OF PRESENT ILLNESS: The patient is a 71-year-old right handed female with history of breast CA diagnosed in 2000, status post lumpectomy, followed by chemotherapy and hormonal treatment; right lung adenocarcinoma, status post debulking and chemotherapy, who complains of "slipping out of my slippers" at home. She stated that she developed some left arm weakness as well. This has occurred gradually over the last couple of weeks. The patient denies any headache, nausea, vomiting, seizure activity, right-sided symptoms, or sensory findings. She has not had any recent infection, even though she has been on chemotherapy. She is on Opdivo. PAST MEDICAL HISTORY: Adenocarcinoma of the lung, right breast cancer, hypertension, hypercholesterolemia. ADMISSION MEDICATIONS: Lipitor, Flovent, Cozaar, timolol, tiotropium inhaler, Travatan eyedrops, calcium/vitamin D3, diltiazem. Previously, she was on vancomycin per Infectious Disease, but that was stopped. There are no known drug allergies. FAMILY HISTORY: Noncontributory. SOCIAL HISTORY: She used to be a 1 pack per day smoker up until a couple of years ago when the lung cancer was diagnosed. She drinks alcohol socially. She lives at home with her . She is retired. REVIEW OF SYSTEMS: Otherwise negative for other major cardiovascular, pulmonary, gastrointestinal, genitourinary, endocrinologic, neurologic, psychologic problems, except for the above. PHYSICAL EXAMINATION: Vital Signs: Temperature is 98.2, temperature maximum is 98.8, blood pressure is 110/78 with pulse rate of 102. HEENT: Normocephalic, atraumatic, anicteric. Neck: Supple. She has a healed anterior transverse scar in the midline. Coronary: Regular rhythm. Lungs: Clear bilaterally, except for decreased breath sounds in the bases. She has both chest scars for ports and she has an active port on the left side. Abdomen: Benign. Extremities: No signs of DVT. Distal pulses are 1+. Neurologic: She is awake and alert and oriented x4. She is sitting up in bed. Cranial nerve examination shows very mild flatting of the left nasolabial fold. Tongue was midline and extraocular movements were intact. Motor examination shows 5/5 strength on the right. Left upper extremity strength is 2-5/5. Her left hand is slightly stronger at 3-4/5. Lower extremity strength is 4/5 in both proximal and distal lower extremity strength. Sensory examination is intact to light touch and vibratory sensation. Deep tendon reflexes are 3+ throughout. Her left toe is upgoing. Gait is not tested for safety reasons. LABORATORY EXAMINATION: Sodium 141, BUN 12, creatinine 0.6. INR is 1.17. White blood cell count initial was 23,000; subsequently, it has dropped down to 14.4. Hemoglobin is 9.8 and platelet count is 302,000. Urinalysis shows 2+ leukocyte esterase with 33 WBCs and [address] scan of the head demonstrated multifocal hyperdense lesion; the largest one is in the right internal capsule and left lateral ventricle, approximately 2 to 2.5 cm. There is also a 3rd lesion in the left cerebellum and a 4th lesion in the right high frontal convexity. There is minimal associated edema and there is no acute hemorrhage noted. There is no hydrocephalus. IMPRESSION: 1. Multifocal intracranial hyperdense lesions on CT scan, consistent with metastasis versus multifocal lymphoma. 2. History of right breast cancer. 3. History of right lung adenocarcinoma. 4. Hypertension. RECOMMENDATIONS: The patient presents with some left hemiparesis, likely secondary to the right basal ganglia/thalamic lesion. It is approximately 2.5 cm in diameter. It has a regular margin, but has minimal edema. An MRI of the brain with and without gadolinium is recommended to better assess the extent of the intracranial involvement. Judging by the location of the lesions, this could be lymphoma. This is also possibly a multifocal metastasis, even though one would expect more vasogenic edema. I did not start the patient on steroid because there is no significant vasogenic edema noted at this time. Keppra for seizure prophylaxis should be considered as well. The above was discussed with the patient. I think a course of physical therapy is appropriate to help improve her strength and range of motion of the left side. CARINA DE LA TORRE M.D. DONG/[id number]
--- NOTE | 2016-08-19 11:41 | PN ---
Progress Note, Physician History of Present Illness: Awake, alert No complaints No c/o chest pain/ dyspnea/ cough No dysuria No erythema or tenderness at port site No fever/ chills Leukocytosis improved BC prelim (-) Urine c/s pending - Current Medication List Current Medications: Active Medications Aclidinium [place] (Tudorza -) 1 puff IH BID [facility] Last Admin: 08/19/16 09:53 Dose: Not Given Albuterol Sulfate (Ventolin 0.083% Nebulizer Soln -) 1 amp NEB Q4H PRN PRN Reason: SHORT OF BREATH/WHEEZING Atorvastatin Calcium (Lipitor -) 10 mg PO HS [facility] Last Admin: 08/18/16 21:21 Dose: 10 mg Diltiazem HCl (Cardizem Cd -) 120 mg PO DAILY [facility] Last Admin: 08/19/16 09:50 Dose: 120 mg Sodium Chloride (Normal Saline -) 1,000 mls @ 83 mls/hr IV ASDIR [facility] Stop: 08/19/16 14:29 Last Admin: 08/18/16 14:58 Dose: 83 mls/hr Latanoprost (Xalatan 0.005% Eye Drops -) 1 drop OU HS [facility] Last Admin: 08/18/16 21:22 Dose: 1 drop Losartan Potassium (Cozaar -) 50 mg PO DAILY [facility] Last Admin: 08/19/16 09:50 Dose: 50 mg Non-Formulary Medication (Fluticasone Propionate [Flovent Hfa]) 1 inh IH DAILY [facility] Timolol Maleate (Timoptic 0.25%) 1 drop OU DAILY [facility] Last Admin: 08/19/16 09:53 Dose: Not Given - Objective Vital Signs: Vital Signs Temperature 98.1 F 08/19/16 10:00 Pulse Rate 92 H 08/19/16 10:00 Respiratory Rate 20 08/19/16 10:00 Blood Pressure 112/70 08/19/16 10:00 O2 Sat by Pulse Oximetry (%) 97 08/18/16 00:30 Constitutional: Yes: No Distress Eyes: Yes: Conjunctiva Clear Cardiovascular: Yes: Regular Rate and Rhythm, S1, S2 Respiratory: Yes: Diminished Gastrointestinal: Yes: Normal Bowel Sounds, Soft, Abdomen, Obese. 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
[2016-08-19] MEDS: CEFTRIAXONE 50 ML IVPB SCH (12:40)
--- NOTE | 2016-08-19 13:47 | CONSULT ---
Consult Consult Specialty:: Oncology Reason for Consultation:: New brain mets - History of Present Illness Chief Complaint: Patient with new focal neurology (LUE paresis, gait instability ) found on CT scan to have multiple new parenchymal lesions consistent with brain metastases. History of Present Illness: Patient well known to Drs. Palacios and Halie, with remote history of breast cancer, COPD, more recently diagnosed with NSCLC, s/p lobectomy, but with local chest wall recurrence approximately 1 year ago, previously on combination chemotherapy, most recently on Opdivo, apparently with some response. Doing well, and ambulant, but now reporting gait instability and L arm paralysis for 3 days. 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: No: CVA, Seizure Pulmonary: Yes: Bronchitis, Cancer, COPD - Alcohol/Substance Use Hx Alcohol Use: Yes (SOCIAL) - Smoking History Smoking history: Former smoker Have you smoked in the past 12 months: No Aproximately how many cigarettes per day: 0 If you are a former smoker, when did you quit?: 2010 Home Medications - Allergies Allergies/Adverse Reactions: Allergies Allergy/AdvReac Type Severity Reaction Status Date / Time No Known Drug Allergies Allergy Verified 08/17/16 17:29 - Home Medications Home Medications: Ambulatory Orders Atorvastatin [place] [Lipitor] 10 mg PO DAILY 11/24/12 Fluticasone Propionate [Flovent Hfa] 1 inh IH DAILY 11/24/12 Losartan Potassium [Cozaar -] 50 mg PO DAILY 11/24/12 Timolol [Betimol] 1 drop OU DAILY 11/24/12 Tiotropium [place] [Spiriva] 1 inh IH DAILY 11/24/12 Travoprost (Benzalkonium) [Travatan 0.004% Eye Drop] 1 drop OU HS 11/24/12 Ca/D3/Mag#11/Zinc/Child Care Coordinator/Rene/Bor [Caltrate 600+D Plus Tablet] 1 each PO DAILY 10/28 Diltiazem HCl [Diltiazem ER] 120 mg PO DAILY 08/17/16 Review of Systems - Review of Systems Constitutional: denies: Chills, Loss of Appetite Eyes: denies: Recent Change in Vision HENT: denies: Difficult Swallowing Cardiovascular: denies: Chest Pain, Shortness of Breath Respiratory: denies: Cough, Hemoptysis Gastrointestinal: denies: Abdominal Pain, Constipation, Diarrhea Neurological: reports: Incoordination, Unsteady Gait, Weakness, Other (Left upper extremity paralysis). denies: Confusion, Parasthesia Psychiatric: denies: Anxiety, Depression Physical Exam Vital Signs: Vital Signs Temperature 98.1 F 08/19/16 10:00 Pulse Rate 92 H 08/19/16 10:00 Respiratory Rate 20 08/19/16 10:00 Blood Pressure 112/70 08/19/16 10:00 O2 Sat by Pulse Oximetry (%) 97 08/18/16 00:30 Constitutional: Yes: Well Nourished Eyes: Yes: Conjunctiva Clear HENT: Yes: Normocephalic. No: Drooling Neck: Yes: Trachea Midline. No: Lymphadenopathy Cardiovascular: Yes: Regular Rate and Rhythm, S1, S2. No: Gallop, Murmur Respiratory: Yes: Regular (Decreased breath sounds bilaterally) Gastrointestinal: Yes: Normal Bowel Sounds. No: Hepatomegaly, Palpable Mass ...Rectal Exam: Yes: Deferred Breast(s): Yes: Other (Mastectomy L) Musculoskeletal: No: Joint Stiffness, Joint Swelling Edema: No Neurological: Yes: Alert, Oriented, Cran Nerves II-XII Intact, Weakness, Other ( LUE paresis). No: Confusion, Dysarthria, Facial Droop Psychiatric: Yes: Alert, Oriented Labs: CBC, BMP 08/19/16 06:20 08/19/16 06:20 Imaging - Results Cat Scan: Image Reviewed Assessment/Plan Metastatic NSCLC, apparently with controlled (extracranial) disease on Opdivo, presents with 4 new brain metastases, including cerebellar lesion. MRI pending. Requires radiation consult KAL. No reports of cerebral edema, but reasonable to administer steroids for a few days.
[2016-08-19] MEDS: DEXAMETHASONE SOD PHOSPHATE 4 MG/1 ML VIAL IVPUSH SCH ×2 (14:42→18:03)
--- NOTE | 2016-08-19 18:27 | CON.NEURO ---
Consult Consult Specialty:: NEUROLOGY - History of Present Illness Chief Complaint: left arm weakness History of Present Illness: 71y F with pmh. of breast cancer, COPD, more recently diagnosed with NSCLC, s/ p lobectomy, but with local chest wall recurrence approximately 1 year ago, previously on combination chemotherapy, most recently on Opdivo, was admitted after a fall, gait instability, left arm weakness for three days. On CT brain there are multiple bilaterally brain mets. - Past Medical History [employer]EL[employer]: No: CVA, Seizure Pulmonary: Yes: Bronchitis, Cancer, COPD - Alcohol/Substance Use Hx Alcohol Use: Yes (SOCIAL) - Smoking History Smoking history: Former smoker Have you smoked in the past 12 months: No Aproximately how many cigarettes per day: 0 If you are a former smoker, when did you quit?: 2010 Home Medications - Allergies Allergies/Adverse Reactions: Allergies Allergy/AdvReac Type Severity Reaction Status Date / Time No Known Drug Allergies Allergy Verified 08/17/16 17:29 - Home Medications Home Medications: Ambulatory Orders Atorvastatin Calcium [Lipitor] 10 mg PO DAILY 11/24/12 Fluticasone Propionate [Flovent Hfa] 1 inh IH DAILY 11/24/12 Losartan Potassium [Cozaar -] 50 mg PO DAILY 11/24/12 Timolol [Betimol] 1 drop OU DAILY 11/24/12 Tiotropium [employer] [Spiriva] 1 inh IH DAILY 11/24/12 Travoprost (Benzalkonium) [Travatan 0.004% Eye Drop] 1 drop OU HS 11/24/12 Ca/D3/Mag#11/Zinc/Lacing Cutter/Rene/Bor [Caltrate 600+D Plus Tablet] 1 each PO DAILY 10/28 Diltiazem HCl [Diltiazem ER] 120 mg PO DAILY 08/17/16 Review of Systems - Review of Systems Constitutional: reports: No Symptoms Eyes: reports: No Symptoms HENT: reports: No Symptoms Neck: reports: No Symptoms Cardiovascular: reports: No Symptoms Respiratory: reports: No Symptoms Gastrointestinal: reports: No Symptoms Genitourinary: reports: No Symptoms Breasts: reports: No Symptoms Reported Musculoskeletal: reports: No Symptoms Integumentary: reports: No Symptoms Neurological: reports: No Symptoms Endocrine: reports: No Symptoms Hematology/Lymphatic: reports: No Symptoms Psychiatric: reports: No Symptoms Physical Exam-Neuro Vital Signs: Vital Signs Temperature 97.7 F 08/19/16 14:22 Pulse Rate 96 H 08/19/16 14:22 Respiratory Rate 20 08/19/16 14:22 Blood Pressure 112/70 08/19/16 10:00 O2 Sat by Pulse Oximetry (%) 97 08/18/16 00:30 Constitutional: Yes: Well Nourished, No Distress, Calm Neck: Yes: Supple, Trachea Midline Cardiovascular: Yes: Regular Rate and Rhythm, S1, S2 Respiratory: Yes: Regular, CTA Bilaterally Gastrointestinal: Yes: Normal Bowel Sounds, Soft Renal/: Yes: WNL Musculoskeletal: Yes: Muscle Weakness Psychiatric: Yes: Alert, Oriented Labs: CBC, BMP 08/19/16 06:20 08/19/16 06:20 INR, PTT INR 1.17 (0.82-1.09) H 08/17/16 18:44 - Neuro Exam Dominant Hand: Right Cranial Nerves II-XII Intact: Yes DTR's: 1+ Left Bicep, 1+ Right Bicep, 1+ Left Tricep, 1+ Right Tricep, 1+ Left Brachioradialis, 1+ Right Brachioradialis, 1+ Left Achilles, 1+ Right Achilles Babinski: Absent Motor Strength: 1/5: Left Arm, 5/5: Right Arm, Left Leg, Right Leg Gait: Deferred Imaging - Results Cat Scan: Report Reviewed, Image Reviewed Problem List - Problems (1) Brain metastases Code(s): C79.31 - SECONDARY MALIGNANT NEOPLASM OF BRAIN (2) HTN (hypertension) Code(s): I10 - ESSENTIAL (PRIMARY) HYPERTENSION (3) Left arm weakness Code(s): M62.81 - MUSCLE WEAKNESS (GENERALIZED) Assessment/Plan 71y F with pmh. of breast cancer, COPD, more recently diagnosed with NSCLC, s/ p lobectomy, but with local chest wall recurrence approximately 1 year ago, previously on combination chemotherapy, most recently on Opdivo, was admitted after a fall, gait instability, left arm weakness for three days. On CT brain there are multiple bilaterally brain mets. She was started on Decadron iv. Impression: new brain metastasis. Plan: - continues decadron iv. daily - consult oncology , radiation therapy, biopsy brain mass. - DVT prophylaxis. thank you for this consult.
[2016-08-19] MEDS: LATANOPROST 0.005% OPHTH SOLN 2.5ML BOTTLE OU SCH (21:56)
[2016-08-19] MEDS: ATORVASTATIN CA 10 MG TABLET (FP) PO SCH (21:56)
[2016-08-20] MEDS: DEXAMETHASONE SOD PHOSPHATE 4 MG/1 ML VIAL IVPUSH SCH ×3 (02:44→18:48)
[2016-08-20 07:25] LABS: BASOPHIL 0.2 % (0-2.0); EOSINOPHIL 0.1 % (0-4.5); MCH 25.9 pg (25.7-33.7); MCHC 32.1 g/dl (32.0-36.0); MEAN CELL VOLUME 80.5 fl (80-96); MEAN PLT VOLUME 7.9 fl (7.5-11.1); PLATELET COUNT 325 K/MM3 (134-434); RDW 18.4 % (11.6-15.6); WHITE BLOOD COUNT 20.1 K/mm3 (4.0-10.0)
[2016-08-20 08:02] LABS: ALBUMIN 2.8 g/dl (3.4-5.0); ANION GAP 10 (8-16); BILIRUBIN,TOTAL 0.4 mg/dL (0.2-1.0); CALCIUM 9.3 mg/dL (8.5-10.1); CO2 24 mmol/L (21-32); CREATININE 0.6 mg/dL (0.55-1.02); GLUCOSE,RANDOM 107 mg/dL (74-106); SGOT/AST 11 U/L (15-37); SGPT/ALT 11 U/L (12-78); TOT PROT 6.1 g/dl (6.4-8.2)
[2016-08-20 08:04] LABS: ALK PHOS 69 U/L (45-117)
--- NOTE | 2016-08-20 08:56 | PN ---
Progress Note, Physician History of Present Illness: LT ARM WEAKNESS - Current Medication List Current Medications: Active Medications Aclidinium [place] (Tudorza -) 1 puff IH BID [facility] Last Admin: 08/19/16 21:56 Dose: Not Given Albuterol Sulfate (Ventolin 0.083% Nebulizer Soln -) 1 amp NEB Q4H PRN PRN Reason: SHORT OF BREATH/WHEEZING Atorvastatin Calcium (Lipitor -) 10 mg PO HS [facility] Last Admin: 08/19/16 21:56 Dose: 10 mg Dexamethasone Sodium Phosphate (Decadron Injection -) 4 mg IVPUSH Q8H-IV [facility] Last Admin: 08/20/16 02:44 Dose: 4 mg Diltiazem HCl (Cardizem Cd -) 120 mg PO DAILY [facility] Last Admin: 08/19/16 09:50 Dose: 120 mg Heparin Sodium (Porcine) (Heparin -) 5,000 unit SQ BID [facility] Ceftriaxone Sodium (Rocephin 1gm Ivpb (Pre-Docked)) 50 mls @ 200 mls/hr IVPB DAILY [facility] Last Admin: 08/19/16 12:40 Dose: 200 mls/hr Latanoprost (Xalatan 0.005% Eye Drops -) 1 drop OU HS [facility] Last Admin: 08/19/16 21:56 Dose: 1 drop Losartan Potassium (Cozaar -) 50 mg PO DAILY [facility] Last Admin: 08/19/16 09:50 Dose: 50 mg Non-Formulary Medication (Fluticasone Propionate [Flovent Hfa]) 1 inh IH DAILY [facility] Timolol Maleate (Timoptic 0.25%) 1 drop OU DAILY [facility] Last Admin: 08/19/16 09:53 Dose: Not Given - Objective Vital Signs: Vital Signs Temperature 97.5 F L 08/20/16 08:12 Pulse Rate 93 H 08/20/16 08:12 Respiratory Rate 18 08/20/16 08:12 Blood Pressure 112/58 08/20/16 08:12 O2 Sat by Pulse Oximetry (%) 97 08/18/16 00:30 Cardiovascular: Yes: Regular Rate and Rhythm Respiratory: Yes: Regular, CTA Bilaterally Gastrointestinal: Yes: Normal Bowel Sounds, Soft Labs: CBC, BMP 08/20/16 06:30 08/20/16 06:30 INR, PTT INR 1.17 (0.82-1.09) H 08/17/16 18:44 Assessment/Plan 71-year-old female presents to the emergency department via EMS without any complaints at this time. Patient states she slipped out of her slippers earlier when getting up from her couch and almost fell to the ground. She called EMS and signed an AMA. This evening, she tried to go to the bathroom but her slippers slid while walking on the carpet and she eased herself onto the floor. Patient denies any headache, dizziness, lightheadedness, visual disturbance, neck pain, back pain, chest pain, shortness of breath, abdominal pains, extremity numbness or tingling sensation. (1) Falls Code(s): W19.XXXA - UNSPECIFIED FALL, INITIAL ENCOUNTER Qualifiers: Encounter type: initial encounter Qualified Code(s): W19.XXXA - Unspecified fall, initial encounter LIKELY MECHANICAL PT CONSULTED (2) Lung cancer Code(s): C34.90 - MALIGNANT NEOPLASM OF UNSP PART OF UNSP BRONCHUS OR LUNG CXr -> KNOWN R MASS. R/O R PTX -> PULM HYPERCa++ RESOLVED HOME Ca STOPPED RENAL CONSULT NOTED -> F/U W/U SQ HEPARIN -> CONSIDER LOVENOX FOR VTE Px (3) UTI (urinary tract infection) Code(s): N39.0 - URINARY TRACT INFECTION, SITE NOT SPECIFIED Qualifiers: Urinary tract infection type: acute cystitis Hematuria presence: without hematuria Qualified Code(s): N30.00 - Acute cystitis without hematuria APPRECIATE ID CONSULT IV ABx UCx +meli (4) Asthma Code(s): J45.909 - UNSPECIFIED ASTHMA, UNCOMPLICATED ALB NEB PRN (5) COPD (chronic obstructive pulmonary disease) Code(s): J44.9 - CHRONIC OBSTRUCTIVE PULMONARY DISEASE, UNSPECIFIED (6) HTN (hypertension) Code(s): I10 - ESSENTIAL (PRIMARY) HYPERTENSION ACCEPTABLE CONTROL MONITOR (7) Left arm weakness Code(s): M62.81 - MUSCLE WEAKNESS (GENERALIZED) NEW DENY HEAD TRAUMA CTB SHOWS BRAIN METS (2016 MRI BRAIN NEG) -> NEURO/ONCO/NEUROSURG ON CASE XRay NEG IV STEROIDS
--- NOTE | 2016-08-20 10:14 | PN ---
Progress Note (short form) - Note Progress Note: NEUROSURGERY CONSULT DICTATED R breast CA 2000 s/p Chemo and hormonal therapy, Adenocarcinoma of the Lung currently on chemotherapy c/o mechanical fall at home ""slipping out of my slippers"). Pt denies any POLANCO, confusion, lethargy, N/V. No sz. Some L arm weakness. PE: AF, VSS General- healed upper sternal, R chest, L chest (port) incisions. CN- intact except minimal assymmetry L nasolabial fold; Motor- L UE 2-3/5 except left hand 3-4-; L LE 4/5; Sensation- intact LT; DTR- 3+; L toe upgoing; cerebellar- intact R FTN, L sided limited by weakness Head CT- R frontal convexity 1.5 cm, R basal ganglia/thalamic 2.5 cm, L lateral ventricular/thalamic 2.5 cm, and L cerebellar 2 cm hyperdense lesions, minimal edema WBC 23, 14.1 then 20.4; BUN 17, Cr 0.6 Blood culture negative to date Probable multifocal metastases vs lymphoma Brain MRI with/without marc recommended to better delineate total # of lesions and extent Bx of R frontal lesion possible, with the potential risks of bleeding, infection , worsening L arm weakness, sz Would not biopsy if med-onc feels comfortable with offering her radiation/ additional tx based on current lung adenocarcinoma dx Consider Keppra for Sz prophylaxis Already under care of medical oncology Consider baseline rad-on consult/input No steroid for now given minimal vasogenic edema
[2016-08-20] MEDS: HEPARIN NA (PORCINE) 5,000 UNITS/ML 1ML VIAL SQ SCH ×2 (10:15→21:48)
[2016-08-20] MEDS: CEFTRIAXONE 50 ML IVPB SCH (10:15)
[2016-08-20] MEDS: TIMOLOL 0.25% OPHTHALMIC SOL 5 ML BOTTLE OU SCH (10:16)
[2016-08-20] MEDS: LOSARTAN POTASSIUM 25 MG TABLET PO SCH (10:16)
[2016-08-20] MEDS: ACLIDINIUM BROMIDE 400 MCG/INH AERO.POWD IH SCH ×2 (10:26→21:49)
--- NOTE | 2016-08-20 12:00 | PN ---
Progress Note (short form) - Note Progress Note: Renal Follow up for Hypercalcemia Pt seen and examined at the bedside no acute complaints no sob, chest pain Vital Signs Temperature 97.5 F L 08/20/16 08:12 Pulse Rate 93 H 08/20/16 08:12 Respiratory Rate 18 08/20/16 08:12 Blood Pressure 112/58 08/20/16 08:12 O2 Sat by Pulse Oximetry (%) 97 08/18/16 00:30 Intake & Output 08/17/16 08/18/16 08/19/16 08/20/16 23:59 23:59 23:59 23:59 Intake Total 100 1465 1900 300 Output Total 2 Balance 100 1463 1900 300 Weight 122 lb 113 lb Gen: NAD, awake and alert CVS: RRR, No M/R Lungs: Dec BS left lung Abd: soft NT/ND Ext: No edema, clubbing or cyanosis. CBC, BMP 08/20/16 06:30 08/20/16 06:30 Current Medications Aclidinium [place] (Tudorza -) 1 puff IH BID [facility] Last Admin: 08/20/16 10:26 Dose: Not Given Albuterol Sulfate (Ventolin 0.083% Nebulizer Soln -) 1 amp NEB Q4H PRN PRN Reason: SHORT OF BREATH/WHEEZING Atorvastatin Calcium (Lipitor -) 10 mg PO HS [facility] Last Admin: 08/19/16 21:56 Dose: 10 mg Dexamethasone Sodium Phosphate (Decadron Injection -) 4 mg IVPUSH Q8H-IV [facility] Last Admin: 08/20/16 10:16 Dose: 4 mg Diltiazem HCl (Cardizem Cd -) 120 mg PO DAILY [facility] Last Admin: 08/20/16 10:16 Dose: 120 mg Heparin Sodium (Porcine) (Heparin -) 5,000 unit SQ BID [facility] Last Admin: 08/20/16 10:15 Dose: 5,000 unit Ceftriaxone Sodium (Rocephin 1gm Ivpb (Pre-Docked)) 50 mls @ 200 mls/hr IVPB DAILY [facility] Last Admin: 08/20/16 10:15 Dose: 200 mls/hr Latanoprost (Xalatan 0.005% Eye Drops -) 1 drop OU HS [facility] Last Admin: 08/19/16 21:56 Dose: 1 drop Levetiracetam (Keppra -) 250 mg PO BID [facility] Losartan Potassium (Cozaar -) 50 mg PO DAILY [facility] Last Admin: 08/20/16 10:16 Dose: 50 mg Non-Formulary Medication (Fluticasone Propionate [Flovent Hfa]) 1 inh IH DAILY [facility] Timolol Maleate (Timoptic 0.25%) 1 drop OU DAILY [facility] Last Admin: 08/20/16 10:16 Dose: 1 drop A/P 71 year old woman with PMhx of Breast Ca s/p Chemo and hormonal therapy, Adenocarcinoma of the Lung currently on chemotherapy presented s/p mechanical fall at home and found to have Corrected CA of 10.8. #Hypercalcemia of Malignancy Corrected Ca is 10.3 today PTH pending off IVF oral hydration as tolerated trend Ca #Lung Ca with Brain Mets Supportive Care Chemo as per Oncology Neurosurgery following MRI pending #Hypertension Continue Losartan, Diltizem Thank you Will follow Vince Cole DO
--- NOTE | 2016-08-20 12:04 | PN ---
Progress Note (short form) - Note Progress Note: PULMONARY Denies chest pain or shortness of breath. No cough or wheezing. Last Vital Signs Temp Pulse Resp BP Pulse Ox 97.5 F L 93 H 18 112/58 97 08/20/16 08:12 08/20/16 08:12 08/20/16 08:12 08/20/16 08:12 08/18/16 00:30 Gen: NAD at rest Heart: RRR Lung: distant breath sounds, no wheezes Abd: soft, nontender Ext: no edema CBC, BMP 08/20/16 06:30 08/20/16 06:30 Active Medications Aclidinium [place] (Tudorza -) 1 puff IH BID [facility] Last Admin: 08/20/16 10:26 Dose: Not Given Albuterol Sulfate (Ventolin 0.083% Nebulizer Soln -) 1 amp NEB Q4H PRN PRN Reason: SHORT OF BREATH/WHEEZING Atorvastatin Calcium (Lipitor -) 10 mg PO HS [facility] Last Admin: 08/19/16 21:56 Dose: 10 mg Dexamethasone Sodium Phosphate (Decadron Injection -) 4 mg IVPUSH Q8H-IV [facility] Last Admin: 08/20/16 10:16 Dose: 4 mg Diltiazem HCl (Cardizem Cd -) 120 mg PO DAILY [facility] Last Admin: 08/20/16 10:16 Dose: 120 mg Heparin Sodium (Porcine) (Heparin -) 5,000 unit SQ BID [facility] Last Admin: 08/20/16 10:15 Dose: 5,000 unit Ceftriaxone Sodium (Rocephin 1gm Ivpb (Pre-Docked)) 50 mls @ 200 mls/hr IVPB DAILY [facility] Last Admin: 08/20/16 10:15 Dose: 200 mls/hr Latanoprost (Xalatan 0.005% Eye Drops -) 1 drop OU HS [facility] Last Admin: 08/19/16 21:56 Dose: 1 drop Levetiracetam (Keppra -) 250 mg PO BID [facility] Losartan Potassium (Cozaar -) 50 mg PO DAILY [facility] Last Admin: 08/20/16 10:16 Dose: 50 mg Non-Formulary Medication (Fluticasone Propionate [Flovent Hfa]) 1 inh IH DAILY [facility] Timolol Maleate (Timoptic 0.25%) 1 drop OU DAILY [facility] Last Admin: 08/20/16 10:16 Dose: 1 drop A/P NSCLC with Likely Brain Mets COPD Bullous Lung Disease UTI HTN - continue antibiotics - f/u cultures - MRI brain pending - oncology eval - no further CT chest for now unless pt becomes symptomatic - DVT prophylaxis
[2016-08-20] MEDS: levETIRAcetam 250 MG TABLET (FP) PO SCH ×2 (12:18→21:48)
--- NOTE | 2016-08-20 14:01 | PN ---
Progress Note, Physician Chief Complaint: ID Ceftriaxone day 3 Rx Afebrile - Current Medication List Current Medications: Active Medications Aclidinium [place] (Tudorza -) 1 puff IH BID [facility] Last Admin: 08/20/16 10:26 Dose: Not Given Albuterol Sulfate (Ventolin 0.083% Nebulizer Soln -) 1 amp NEB Q4H PRN PRN Reason: SHORT OF BREATH/WHEEZING Atorvastatin Calcium (Lipitor -) 10 mg PO HS [facility] Last Admin: 08/19/16 21:56 Dose: 10 mg Dexamethasone Sodium Phosphate (Decadron Injection -) 4 mg IVPUSH Q8H-IV [facility] Last Admin: 08/20/16 10:16 Dose: 4 mg Diltiazem HCl (Cardizem Cd -) 120 mg PO DAILY [facility] Last Admin: 08/20/16 10:16 Dose: 120 mg Heparin Sodium (Porcine) (Heparin -) 5,000 unit SQ BID [facility] Last Admin: 08/20/16 10:15 Dose: 5,000 unit Ceftriaxone Sodium (Rocephin 1gm Ivpb (Pre-Docked)) 50 mls @ 200 mls/hr IVPB DAILY [facility] Last Admin: 08/20/16 10:15 Dose: 200 mls/hr Latanoprost (Xalatan 0.005% Eye Drops -) 1 drop OU HS [facility] Last Admin: 08/19/16 21:56 Dose: 1 drop Levetiracetam (Keppra -) 250 mg PO BID [facility] Last Admin: 08/20/16 12:18 Dose: 250 mg Losartan Potassium (Cozaar -) 50 mg PO DAILY [facility] Last Admin: 08/20/16 10:16 Dose: 50 mg Non-Formulary Medication (Fluticasone Propionate [Flovent Hfa]) 1 inh IH DAILY [facility] Timolol Maleate (Timoptic 0.25%) 1 drop OU DAILY [facility] Last Admin: 08/20/16 10:16 Dose: 1 drop - Objective Vital Signs: Vital Signs Temperature 97.5 F L 08/20/16 08:12 Pulse Rate 93 H 08/20/16 08:12 Respiratory Rate 18 08/20/16 08:12 Blood Pressure 112/58 08/20/16 08:12 O2 Sat by Pulse Oximetry (%) 97 08/18/16 00:30 Constitutional: Yes: No Distress HENT: Yes: WNL, Atraumatic Neck: Yes: WNL, Thyromegaly Cardiovascular: Yes: Regular Rate and Rhythm, S1, S2 Respiratory: Yes: WNL, Regular, CTA Bilaterally Gastrointestinal: Yes: WNL, Normal Bowel Sounds, Soft. No: Tenderness Neurological: Yes: Weakness Labs: CBC, BMP 08/20/16 06:30 08/20/16 06:30 INR, PTT INR 1.17 (0.82-1.09) H 08/17/16 18:44 Problem List - Problems (1) UTI (urinary tract infection) Code(s): N39.0 - URINARY TRACT INFECTION, SITE NOT SPECIFIED Qualifiers: Urinary tract infection type: acute cystitis Hematuria presence: without hematuria Qualified Code(s): N30.00 - Acute cystitis without hematuria (2) Lung cancer Code(s): C34.90 - MALIGNANT NEOPLASM OF UNSP PART OF UNSP BRONCHUS OR LUNG (3) Leukocytosis Code(s): D72.829 - ELEVATED WHITE BLOOD CELL COUNT, UNSPECIFIED (4) Brain metastases Code(s): C79.31 - SECONDARY MALIGNANT NEOPLASM OF BRAIN Assessment/Plan Microbiology 08/17/16 20:31 Urine - Urine Clean Catch Urine Culture - Final Escherichia Coli 08/18/16 09:00 Blood - Peripheral Venous Blood Culture - Preliminary NO GROWTH OBTAINED AFTER 48 HOURS, INCUBATION TO CONTINUE FOR 3 DAYS. 08/18/16 09:00 Blood - Peripheral Venous Blood Culture - Preliminary NO GROWTH OBTAINED AFTER 48 HOURS, INCUBATION TO CONTINUE FOR 3 DAYS. Laboratory Tests 08/20/16 08/20/16 06:30 06:30 WBC 20.1 H D Hgb 10.3 L Hct 32.1 L Plt Count 325 BUN 17 D Creatinine 0.6 Creat Clearance w eGFR > 60 Assessment Lung Cancer brain meds Asymptomatic bacteruria History of breast CA Elevated WBC Plan As WBC now noted to be secondary to her CA will stop antibiotics Nacho COLLINS
--- NOTE | 2016-08-20 17:58 | PN ---
Progress Note (short form) - Note Progress Note: Radiation Oncology Patient seen and films reviewed. Radiation recommended and will arrange for treatment. consult dictated.
--- NOTE | 2016-08-20 19:51 | CONS ---
DATE OF CONSULTATION: 08/20/2016 TIME OF CONSULTATION: 6 p.m. DIAGNOSIS: Brain metastases most likely from lung cancer. HISTORY OF PRESENT ILLNESS: Patient is a 71-year-old woman who was receiving treatment for her metastatic lung cancer when she fell at home twice, finally came to the hospital. A CAT scan of the brain showed multiple brain lesions consistent with metastatic disease. An MRI is planned. PAST MEDICAL HISTORY: In 2000, she was treated for a right sided breast cancer which included chemotherapy and radiation as well as hormonal treatment. Then according to her she developed a lung mass in 2012, picked up on her screening CT and received surgery, chemotherapy and radiation. She had a right thoracotomy and was continuing on chemotherapy until the admission. Her major complaint is left sided arm weakness. REVIEW OF SYSTEMS: She denies any other symptoms related to the head, eyes, ears, nose, and throat. No other cardiac, respiratory, gastrointestinal, genitourinary, or neurologic complaint. PHYSICAL EXAMINATION: Vital signs: Blood pressure 112/58, pulse 93, respiratory rate 18. Her KPS is 50. Head, Ears, Eyes, Nose, and Throat: Face is symmetric. Tongue is midline. Neck: No adenopathy in the neck, axilla or grain. Heart: Normal heart sounds are present. Lungs: Clear on the left. Breast: No masses in either breast. Neurologic: The main finding is left sided arm weakness. She has 5/5 strength in both legs and right arm. IMPRESSION/PLAN: These lesions are most likely metastatic cancer. Palliative course of radiotherapy would be recommended. The plan is to discuss the case with the medical oncologist. CINDI DICK M.D. [id number]
--- NOTE | 2016-08-20 20:52 | PN ---
Progress Note (short form) - Note Progress Note: Patient seen and examined LUE weakness, no headaches/blurred vision Last Vital Signs Temp Pulse Resp BP Pulse Ox 97.7 F 103 H 18 112/58 97 08/20/16 13:58 08/20/16 13:58 08/20/16 08:12 08/20/16 08:12 08/18/16 00:30 HEENT: [place], EOM Intact Cor: RSR, No murmurs, No gallops Lungs: Clear to P&A Abd: Soft, Normal bowel sounds, No organomegaly Ext:LUE weakness--3/5 Current Medications Aclidinium [place] (Tudorza -) 1 puff IH BID [facility] Last Admin: 08/20/16 21:49 Dose: 1 puff Albuterol Sulfate (Ventolin 0.083% Nebulizer Soln -) 1 amp NEB Q4H PRN PRN Reason: SHORT OF BREATH/WHEEZING Atorvastatin Calcium (Lipitor -) 10 mg PO HS [facility] Last Admin: 08/20/16 21:48 Dose: 10 mg Dexamethasone Sodium Phosphate (Decadron Injection -) 4 mg IVPUSH Q8H-IV [facility] Last Admin: 08/20/16 18:48 Dose: 4 mg Diltiazem HCl (Cardizem Cd -) 120 mg PO DAILY [facility] Last Admin: 08/20/16 10:16 Dose: 120 mg Heparin Sodium (Porcine) (Heparin -) 5,000 unit SQ BID [facility] Last Admin: 08/20/16 21:48 Dose: 5,000 unit Latanoprost (Xalatan 0.005% Eye Drops -) 1 drop OU HS [facility] Last Admin: 08/20/16 21:49 Dose: 1 drop Levetiracetam (Keppra -) 250 mg PO BID [facility] Last Admin: 08/20/16 21:48 Dose: 250 mg Losartan Potassium (Cozaar -) 50 mg PO DAILY [facility] Last Admin: 08/20/16 10:16 Dose: 50 mg Non-Formulary Medication (Fluticasone Propionate [Flovent Hfa]) 1 inh IH DAILY [facility] Timolol Maleate (Timoptic 0.25%) 1 drop OU DAILY [facility] Last Admin: 08/20/16 10:16 Dose: 1 drop Abnormal Lab Results 08/20/16 08/20/16 06:30 06:30 WBC 20.1 H D Hgb 10.3 L Hct 32.1 L RDW 18.4 H Neutrophils % 91.0 H Lymphocytes % 6.2 L D Monocytes % 2.5 L Random Glucose 107 H D AST 11 L ALT 11 L Total Protein 6.1 L Albumin 2.8 L a/p 71 y/o female with lung cancer, on opdivo, now with lue weakness, falls, multiple brain mets on ct scan MRI brain done and pending on decadron 4mg Q 8h discussed with rad-onc -- to start WBRT leukocytosis secondary to advanced maignancy plus steroids e.coli bacteruria --per id team
[2016-08-20] MEDS: ATORVASTATIN CA 10 MG TABLET (FP) PO SCH (21:48)
[2016-08-20] MEDS: LATANOPROST 0.005% OPHTH SOLN 2.5ML BOTTLE OU SCH (21:49)
[2016-08-21] MEDS: DEXAMETHASONE SOD PHOSPHATE 4 MG/1 ML VIAL IVPUSH SCH ×3 (01:34→17:46)
[2016-08-21 06:38] LABS: ALBUMIN 2.9 g/dl (3.4-5.0); ALK PHOS 70 U/L (45-117); ANION GAP 9 (8-16); BILIRUBIN,TOTAL 0.2 mg/dL (0.2-1.0); CALCIUM 9.6 mg/dL (8.5-10.1); CO2 26 mmol/L (21-32); CREATININE 0.6 mg/dL (0.55-1.02); GLUCOSE,RANDOM 125 mg/dL (74-106); SGOT/AST 9 U/L (15-37); SGPT/ALT 13 U/L (12-78); TOT PROT 6.2 g/dl (6.4-8.2)
--- NOTE | 2016-08-21 08:20 | PN ---
Progress Note (short form) - Note Progress Note: NEUROSURGERY Pt denies any POLANCO, confusion, lethargy, N/V. No sz. L arm weakness. PE: AF, VSS General- healed upper sternal, R chest, L chest (port) incisions. CN- intact except minimal asymmetry L nasolabial fold; Motor- L prox UE 2/5; left hand 3-4-; L LE 4/5; Sensation- intact LT; DTR- 3+; L toe upgoing; cerebellar- intact R FTN, L sided limited by weakness Head CT- R frontal convexity 1.5 cm, R basal ganglia/thalamic 2.5 cm, L lateral ventricular/thalamic 2.5 cm, and L cerebellar 2 cm hyperdense lesions, minimal edema MRI- L cerebellar, L splenium, R thalamic, R frontal high convexity GW junction , L frontal polar enhancing lesions Blood culture negative to date Probable multifocal metastases Med-onc/rad onc are comfortable with offering her radiation/additional tx based on current lung adenocarcinoma dx On Keppra for Sz prophylaxis On steroid iv No neurosurgical intervention recommended for multifocal mets
[2016-08-21] MEDS: LOSARTAN POTASSIUM 25 MG TABLET PO SCH (09:34)
[2016-08-21] MEDS: levETIRAcetam 250 MG TABLET (FP) PO SCH ×2 (09:34→21:52)
[2016-08-21] MEDS: HEPARIN NA (PORCINE) 5,000 UNITS/ML 1ML VIAL SQ SCH ×2 (09:35→21:52)
[2016-08-21] MEDS: ACLIDINIUM BROMIDE 400 MCG/INH AERO.POWD IH SCH ×3 (09:37→21:54)
[2016-08-21] MEDS: TIMOLOL 0.25% OPHTHALMIC SOL 5 ML BOTTLE OU SCH (09:37)
--- NOTE | 2016-08-21 11:31 | PN ---
Progress Note, Physician History of Present Illness: LT ARM WEAKNESS - Current Medication List Current Medications: Active Medications Aclidinium [place] (Tudorza -) 1 puff IH BID [facility] Last Admin: 08/21/16 09:37 Dose: Not Given Albuterol Sulfate (Ventolin 0.083% Nebulizer Soln -) 1 amp NEB Q4H PRN PRN Reason: SHORT OF BREATH/WHEEZING Atorvastatin Calcium (Lipitor -) 10 mg PO HS [facility] Last Admin: 08/20/16 21:48 Dose: 10 mg Dexamethasone Sodium Phosphate (Decadron Injection -) 4 mg IVPUSH Q8H-IV [facility] Last Admin: 08/21/16 09:34 Dose: 4 mg Diltiazem HCl (Cardizem Cd -) 120 mg PO DAILY [facility] Last Admin: 08/21/16 09:34 Dose: 120 mg Heparin Sodium (Porcine) (Heparin -) 5,000 unit SQ BID [facility] Last Admin: 08/21/16 09:35 Dose: 5,000 unit Latanoprost (Xalatan 0.005% Eye Drops -) 1 drop OU HS [facility] Last Admin: 08/20/16 21:49 Dose: 1 drop Levetiracetam (Keppra -) 250 mg PO BID [facility] Last Admin: 08/21/16 09:34 Dose: 250 mg Losartan Potassium (Cozaar -) 50 mg PO DAILY [facility] Last Admin: 08/21/16 09:34 Dose: 50 mg Non-Formulary Medication (Fluticasone Propionate [Flovent Hfa]) 1 inh IH DAILY [facility] Timolol Maleate (Timoptic 0.25%) 1 drop OU DAILY [facility] Last Admin: 08/21/16 09:37 Dose: Not Given - Objective Vital Signs: Vital Signs Temperature 97.8 F 08/21/16 08:51 Pulse Rate 68 08/21/16 08:51 Respiratory Rate 20 08/21/16 09:00 Blood Pressure 107/64 08/21/16 08:51 O2 Sat by Pulse Oximetry (%) 99 08/21/16 09:00 Cardiovascular: Yes: S1, S2 Respiratory: Yes: Regular, CTA Bilaterally Gastrointestinal: Yes: Normal Bowel Sounds, Soft Edema: No Neurological: Yes: Alert, Oriented, Other (WEAKNESS OF LEFT ARM) Labs: CBC, BMP 08/20/16 06:30 08/21/16 05:40 INR, PTT INR 1.17 (0.82-1.09) H 08/17/16 18:44 Assessment/Plan 71-year-old female presents to the emergency department via EMS without any complaints at this time. Patient states she slipped out of her slippers earlier when getting up from her couch and almost fell to the ground. She called EMS and signed an AMA. This evening, she tried to go to the bathroom but her slippers slid while walking on the carpet and she eased herself onto the floor. Patient denies any headache, dizziness, lightheadedness, visual disturbance, neck pain, back pain, chest pain, shortness of breath, abdominal pains, extremity numbness or tingling sensation. (1) Falls Code(s): W19.XXXA - UNSPECIFIED FALL, INITIAL ENCOUNTER Qualifiers: Encounter type: initial encounter Qualified Code(s): W19.XXXA - Unspecified fall, initial encounter LIKELY MECHANICAL PT CONSULTED (2) Lung cancer Code(s): C34.90 - MALIGNANT NEOPLASM OF UNSP PART OF UNSP BRONCHUS OR LUNG CXr -> KNOWN R MASS. R/O R PTX -> PULM HYPERCa++ RESOLVED HOME Ca STOPPED RENAL CONSULT NOTED -> F/U W/U SQ HEPARIN -> CONSIDER LOVENOX FOR VTE Px (3) UTI (urinary tract infection) Code(s): N39.0 - URINARY TRACT INFECTION, SITE NOT SPECIFIED Qualifiers: Urinary tract infection type: acute cystitis Hematuria presence: without hematuria Qualified Code(s): N30.00 - Acute cystitis without hematuria APPRECIATE ID CONSULT IV ABx UCx +meli (4) Asthma Code(s): J45.909 - UNSPECIFIED ASTHMA, UNCOMPLICATED ALB NEB PRN (5) COPD (chronic obstructive pulmonary disease) Code(s): J44.9 - CHRONIC OBSTRUCTIVE PULMONARY DISEASE, UNSPECIFIED (6) HTN (hypertension) Code(s): I10 - ESSENTIAL (PRIMARY) HYPERTENSION ACCEPTABLE CONTROL MONITOR (7) Left arm weakness Code(s): M62.81 - MUSCLE WEAKNESS (GENERALIZED) NEW DENY HEAD TRAUMA CTB AND MRI SHOWS BRAIN METS (2015 MRI BRAIN NEG) -> NEURO/ONCO/NEUROSURG ON CASE XRay NEG IV STEROIDS TO TART RT
--- NOTE | 2016-08-21 11:33 | PN ---
Progress Note (short form) - Note Progress Note: PULMONARY Still with left sided weakness. Denies chest pain or shortness of breath. No cough or wheezing. MRI brain yesterday confirming multiple brain mets. Last Vital Signs Temp Pulse Resp BP Pulse Ox 97.8 F 68 20 107/64 99 08/21/16 08:51 08/21/16 08:51 08/21/16 09:00 08/21/16 08:51 08/21/16 09:00 Gen: NAD at rest Heart: RRR Lung: distant breath sounds, no wheezes Abd: soft, nontender Ext: no edema CBC, BMP 08/20/16 06:30 08/21/16 05:40 Active Medications Aclidinium [place] (Tudorza -) 1 puff IH BID [facility] Last Admin: 08/21/16 09:37 Dose: Not Given Albuterol Sulfate (Ventolin 0.083% Nebulizer Soln -) 1 amp NEB Q4H PRN PRN Reason: SHORT OF BREATH/WHEEZING Atorvastatin Calcium (Lipitor -) 10 mg PO HS [facility] Last Admin: 08/20/16 21:48 Dose: 10 mg Dexamethasone Sodium Phosphate (Decadron Injection -) 4 mg IVPUSH Q8H-IV [facility] Last Admin: 08/21/16 09:34 Dose: 4 mg Diltiazem HCl (Cardizem Cd -) 120 mg PO DAILY [facility] Last Admin: 08/21/16 09:34 Dose: 120 mg Heparin Sodium (Porcine) (Heparin -) 5,000 unit SQ BID [facility] Last Admin: 08/21/16 09:35 Dose: 5,000 unit Latanoprost (Xalatan 0.005% Eye Drops -) 1 drop OU HS [facility] Last Admin: 08/20/16 21:49 Dose: 1 drop Levetiracetam (Keppra -) 250 mg PO BID [facility] Last Admin: 08/21/16 09:34 Dose: 250 mg Losartan Potassium (Cozaar -) 50 mg PO DAILY [facility] Last Admin: 08/21/16 09:34 Dose: 50 mg Non-Formulary Medication (Fluticasone Propionate [Flovent Hfa]) 1 inh IH DAILY [facility] Timolol Maleate (Timoptic 0.25%) 1 drop OU DAILY [facility] Last Admin: 08/21/16 09:37 Dose: Not Given A/P NSCLC with Brain Mets Left sided weakness COPD Bullous Lung Disease UTI HTN - for RT - continue decadron for brain mets - empiric antiepileptics - inhaled bronchodilators - no further CT chest for now unless pt becomes symptomatic - DVT prophylaxis
--- NOTE | 2016-08-21 11:40 | PN ---
Progress Note (short form) - Note Progress Note: Renal Follow up for Hypercalcemia Pt seen and examined at the bedside no acute complaints Vital Signs Temperature 97.8 F 08/21/16 08:51 Pulse Rate 68 08/21/16 08:51 Respiratory Rate 20 08/21/16 09:00 Blood Pressure 107/64 08/21/16 08:51 O2 Sat by Pulse Oximetry (%) 99 08/21/16 09:00 Intake & Output 08/18/16 08/19/16 08/20/16 08/21/16 23:59 23:59 23:59 23:59 Intake Total 1465 1900 1999 Output Total 2 Balance 1463 1900 1999 Weight 113 lb Gen: NAD, awake and alert CVS: RRR, No M/R Lungs: Dec BS left lung Abd: soft NT/ND Ext: No edema, clubbing or cyanosis. CBC, BMP 08/20/16 06:30 08/21/16 05:40 Laboratory Tests 08/18/16 08/20/16 08/21/16 15:35 06:30 05:40 Calcium 9.3 9.6 Albumin 2.8 L 2.9 L PTH Intact Pending Current Medications Aclidinium [place] (Tudorza -) 1 puff IH BID [facility] Last Admin: 08/21/16 09:37 Dose: Not Given Albuterol Sulfate (Ventolin 0.083% Nebulizer Soln -) 1 amp NEB Q4H PRN PRN Reason: SHORT OF BREATH/WHEEZING Atorvastatin Calcium (Lipitor -) 10 mg PO HS [facility] Last Admin: 08/20/16 21:48 Dose: 10 mg Dexamethasone Sodium Phosphate (Decadron Injection -) 4 mg IVPUSH Q8H-IV [facility] Last Admin: 08/21/16 09:34 Dose: 4 mg Diltiazem HCl (Cardizem Cd -) 120 mg PO DAILY [facility] Last Admin: 08/21/16 09:34 Dose: 120 mg Heparin Sodium (Porcine) (Heparin -) 5,000 unit SQ BID [facility] Last Admin: 08/21/16 09:35 Dose: 5,000 unit Latanoprost (Xalatan 0.005% Eye Drops -) 1 drop OU HS [facility] Last Admin: 08/20/16 21:49 Dose: 1 drop Levetiracetam (Keppra -) 250 mg PO BID [facility] Last Admin: 08/21/16 09:34 Dose: 250 mg Losartan Potassium (Cozaar -) 50 mg PO DAILY [facility] Last Admin: 08/21/16 09:34 Dose: 50 mg Non-Formulary Medication (Fluticasone Propionate [Flovent Hfa]) 1 inh IH DAILY [facility] Timolol Maleate (Timoptic 0.25%) 1 drop OU DAILY [facility] Last Admin: 08/21/16 09:37 Dose: Not Given A/P 71 year old woman with PMhx of Breast Ca s/p Chemo and hormonal therapy, Adenocarcinoma of the Lung currently on chemotherapy presented s/p mechanical fall at home and found to have Corrected CA of 10.8. #Hypercalcemia of Malignancy Corrected Ca is 10.4 today PTH pending continue oral hydation as needed no indication for IVF, Calcitonin at this time #Lung Ca with Brain Mets Supportive Care Chemo as per Oncology Neurosurgery following for Radiation Tx on Steroids for brain mets #Hypertension Continue Losartan, Diltizem Thank you Will follow Vince Cole DO
--- NOTE | 2016-08-21 15:31 | PN ---
Progress Note (short form) - Note Progress Note: Rad Onc Still w left hemiparesis, on decadron. MRI confirms at least 5 supra/infratentorial mets w edema, mild midline shift. WBRT initiated today. Plan 9 more tx. Cont steroids during RT. Would add PPI for GI prophylaxis. Neuro monitoring.
--- NOTE | 2016-08-21 20:26 | PN ---
Progress Note (short form) - Note Progress Note: Patient seen and examined [place] of breast , s/p lumpectomy, RT and hormonal therapy [place] of lung , s/p RUL resection with biopsy proven recurrence treated with alimta, carboplatinum, and avastin with progression and recently with immunotherapy with Nivolumab. Developed nausea, emesis , left hemiparesis and has multiple brain mets being treated with RT and steroids. Last Vital Signs Temp Pulse Resp BP Pulse Ox 97.3 F L 71 20 109/56 99 08/21/16 15:07 08/21/16 15:07 08/21/16 09:00 08/21/16 15:07 08/21/16 09:00 HEENT: [place], EOM Intact Oropharynx: No thrush, No mucositis, dentures Neck: Supple Nodes: Without adenopathy Breasts: Without masses, s/p right breast lumpectomy, Rt with retraction, ;No chest wall recurrence Cor: RSR, No murmurs, No gallops Lungs: Clear to P&A Abd: Soft, Normal bowel sounds, No organomegaly Ext:No significant edema Skin: No rashes, Integument intact Left hemiparesis - LUE worse then LLE CBC, BMP 08/20/16 06:30 08/21/16 05:40 Current Medications Generic Name Dose Route Start Last Admin Trade Name Freq PRN Reason Stop Dose Admin Aclidinium [place] 1 puff 08/18/16 10:00 08/21/16 09:37 Tudorza - IH Not Given BID [facility] Albuterol Sulfate 1 amp 08/18/16 12:43 Ventolin 0.083% Nebulizer Soln - NEB Q4H PRN SHORT OF BREATH/WHEEZING Atorvastatin Calcium 10 mg 08/17/16 22:00 08/20/16 21:48 Lipitor - PO 10 mg HS [facility] Administration Dexamethasone Sodium Phosphate 4 mg 08/19/16 14:00 08/21/16 17:46 Decadron Injection - IVPUSH 4 mg Q8H-IV [facility] Administration Diltiazem HCl 120 mg 08/18/16 10:00 08/21/16 09:34 Cardizem Cd - PO 120 mg DAILY [facility] Administration Heparin Sodium (Porcine) 5,000 unit 08/20/16 10:00 08/21/16 09:35 Heparin - SQ 5,000 unit BID [facility] Administration Latanoprost 1 drop 08/17/16 22:00 08/20/16 21:49 Xalatan 0.005% Eye Drops - OU 1 drop HS [facility] Administration Levetiracetam 250 mg 08/20/16 10:15 08/21/16 09:34 Keppra - PO 250 mg BID [facility] Administration Losartan Potassium 50 mg 08/18/16 10:00 08/21/16 09:34 Cozaar - PO 50 mg DAILY [facility] Administration Non-Formulary Medication 1 inh 08/18/16 10:00 Fluticasone Propionate [Flovent Hfa] IH DAILY [facility] Timolol Maleate 1 drop 08/18/16 10:00 08/21/16 09:37 Timoptic 0.25% OU Not Given DAILY [facility] Impression: 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 High risk for vascular events-- malignancy , bed rest, active lung ca - yet somewhat risky in setting of uncontrolled brain mets. Would monitor carefully. Would not lower steroid dose further at this time.
[2016-08-21] MEDS: LATANOPROST 0.005% OPHTH SOLN 2.5ML BOTTLE OU SCH (21:52)
[2016-08-21] MEDS: ATORVASTATIN CA 10 MG TABLET (FP) PO SCH (21:52)
[2016-08-21] MEDS ORDERED: MAG HYDROX/AL HYDROX/SIMETH 30 ML UNIT-DOSE CUP PO PRN (22:02)
[2016-08-22] MEDS: DEXAMETHASONE SOD PHOSPHATE 4 MG/1 ML VIAL IVPUSH SCH ×3 (01:43→19:40)
[2016-08-22 08:11] LABS: ALBUMIN 3.1 g/dl (3.4-5.0); ANION GAP 10 (8-16); CALCIUM 9.9 mg/dL (8.5-10.1); CO2 25 mmol/L (21-32); GLUCOSE,RANDOM 109 mg/dL (74-106)
[2016-08-22 08:14] LABS: ALK PHOS 75 U/L (45-117); BILIRUBIN,TOTAL 0.3 mg/dL (0.2-1.0); CREATININE 0.6 mg/dL (0.55-1.02); SGOT/AST 9 U/L (15-37); SGPT/ALT 12 U/L (12-78); TOT PROT 6.4 g/dl (6.4-8.2)
[2016-08-22] MEDS: HEPARIN NA (PORCINE) 5,000 UNITS/ML 1ML VIAL SQ SCH (09:07)
[2016-08-22] MEDS: levETIRAcetam 250 MG TABLET (FP) PO SCH ×2 (09:07→21:46)
[2016-08-22] MEDS: LOSARTAN POTASSIUM 25 MG TABLET PO SCH (09:07)
[2016-08-22] MEDS: ACLIDINIUM BROMIDE 400 MCG/INH AERO.POWD IH SCH ×2 (09:08→21:41)
[2016-08-22] MEDS: TIMOLOL 0.25% OPHTHALMIC SOL 5 ML BOTTLE OU SCH (09:08)
--- NOTE | 2016-08-22 09:17 | PN ---
Progress Note, Physician History of Present Illness: LT ARM WEAKNESS TO START PT - Current Medication List Current Medications: Active Medications Aclidinium [place] (Tudorza -) 1 puff IH BID [facility] Last Admin: 08/22/16 09:08 Dose: Not Given Al Hydroxide/Mg Hydroxide (Mylanta Oral Suspension -) 30 ml PO BID PRN PRN Reason: INDIGESTION Last Admin: 08/21/16 22:13 Dose: 30 ml Albuterol Sulfate (Ventolin 0.083% Nebulizer Soln -) 1 amp NEB Q4H PRN PRN Reason: SHORT OF BREATH/WHEEZING Atorvastatin Calcium (Lipitor -) 10 mg PO HS [facility] Last Admin: 08/21/16 21:52 Dose: 10 mg Dexamethasone Sodium Phosphate (Decadron Injection -) 4 mg IVPUSH Q8H-IV [facility] Last Admin: 08/22/16 09:07 Dose: 4 mg Diltiazem HCl (Cardizem Cd -) 120 mg PO DAILY [facility] Last Admin: 08/22/16 09:08 Dose: 120 mg Heparin Sodium (Porcine) (Heparin -) 5,000 unit SQ BID [facility] Last Admin: 08/22/16 09:07 Dose: 5,000 unit Latanoprost (Xalatan 0.005% Eye Drops -) 1 drop OU HS [facility] Last Admin: 08/21/16 21:52 Dose: 1 drop Levetiracetam (Keppra -) 250 mg PO BID [facility] Last Admin: 08/22/16 09:07 Dose: 250 mg Losartan Potassium (Cozaar -) 50 mg PO DAILY [facility] Last Admin: 08/22/16 09:07 Dose: 50 mg Non-Formulary Medication (Fluticasone Propionate [Flovent Hfa]) 1 inh IH DAILY [facility] Pantoprazole Sodium (Protonix -) 40 mg PO DAILY [facility] Timolol Maleate (Timoptic 0.25%) 1 drop OU DAILY [facility] Last Admin: 08/22/16 09:08 Dose: Not Given - Objective Vital Signs: Vital Signs Temperature 97.7 F 08/22/16 06:40 Pulse Rate 89 08/22/16 06:40 Respiratory Rate 20 08/22/16 06:40 Blood Pressure 116/82 08/22/16 06:40 O2 Sat by Pulse Oximetry (%) 96 08/21/16 21:00 Cardiovascular: Yes: Regular Rate and Rhythm Respiratory: Yes: Regular, CTA Bilaterally Gastrointestinal: Yes: Normal Bowel Sounds, Soft Labs: CBC, BMP 08/20/16 06:30 08/22/16 06:30 INR, PTT INR 1.17 (0.82-1.09) H 08/17/16 18:44 Assessment/Plan 71-year-old female presents to the emergency department via EMS without any complaints at this time. Patient states she slipped out of her slippers earlier when getting up from her couch and almost fell to the ground. She called EMS and signed an AMA. This evening, she tried to go to the bathroom but her slippers slid while walking on the carpet and she eased herself onto the floor. Patient denies any headache, dizziness, lightheadedness, visual disturbance, neck pain, back pain, chest pain, shortness of breath, abdominal pains, extremity numbness or tingling sensation. (1) Falls Code(s): W19.XXXA - UNSPECIFIED FALL, INITIAL ENCOUNTER Qualifiers: Encounter type: initial encounter Qualified Code(s): W19.XXXA - Unspecified fall, initial encounter LIKELY MECHANICAL PT CONSULTED (2) Lung cancer Code(s): C34.90 - MALIGNANT NEOPLASM OF UNSP PART OF UNSP BRONCHUS OR LUNG CXr -> KNOWN R MASS. R/O R PTX -> PULM HYPERCa++ RESOLVED HOME Ca STOPPED RENAL CONSULT NOTED -> F/U W/U SQ HEPARIN -> CONSIDER LOVENOX FOR VTE Px (3) UTI (urinary tract infection) Code(s): N39.0 - URINARY TRACT INFECTION, SITE NOT SPECIFIED Qualifiers: Urinary tract infection type: acute cystitis Hematuria presence: without hematuria Qualified Code(s): N30.00 - Acute cystitis without hematuria APPRECIATE ID CONSULT IV ABx UCx +meli (4) Asthma Code(s): J45.909 - UNSPECIFIED ASTHMA, UNCOMPLICATED ALB NEB PRN (5) COPD (chronic obstructive pulmonary disease) Code(s): J44.9 - CHRONIC OBSTRUCTIVE PULMONARY DISEASE, UNSPECIFIED (6) HTN (hypertension) Code(s): I10 - ESSENTIAL (PRIMARY) HYPERTENSION ACCEPTABLE CONTROL MONITOR (7) Left arm weakness Code(s): M62.81 - MUSCLE WEAKNESS (GENERALIZED) NEW DENY HEAD TRAUMA CTB AND MRI SHOWS BRAIN METS (2016 MRI BRAIN NEG) -> NEURO/ONCO/NEUROSURG ON CASE XRay NEG IV STEROIDS TO START RT
[2016-08-22] MEDS: PANTOPRAZOLE 40 MG TABLET (FP) PO SCH (09:36)
--- NOTE | 2016-08-22 10:36 | PN ---
Progress Note (short form) - Note Progress Note: NEUROSURGERY Going across the street for XRT PE: AF, VSS General- unremarkeable CN- intact except minimal asymmetry L nasolabial fold; Motor- L prox UE 1-2/5; left hand 3-4-; L LE 4/5; Sensation- intact LT; DTR- 3+; L toe upgoing; cerebellar- intact R FTN, L sided limited by weakness Head CT- R frontal convexity 1.5 cm, R basal ganglia/thalamic 2.5 cm, L lateral ventricular/thalamic 2.5 cm, and L cerebellar 2 cm hyperdense lesions, minimal edema MRI- L cerebellar, L splenium, R thalamic, R frontal high convexity GW junction , L frontal polar enhancing lesions Blood culture negative Probable multifocal metastases (adenocarcinoma) [facility] On [facility] iv- taper per oncology No neurosurgical intervention recommended for multifocal mets Will sign off, reconsult prn
--- NOTE | 2016-08-22 12:20 | PN ---
Progress Note (short form) - Note Progress Note: PULMONARY EATING LUNCH/CONVERSING WITH JUST RETURNED FROM RT VSS ANICTERIC DISTANT S1S2 BS+ SOFT LEFT UPPER EXT WEAKNESS LABS/MEDS/IMAGING/NOTES REVIEWED NSCLC with Brain Mets Left sided weakness COPD Bullous Lung Disease UTI HTN - for RT - continue decadron for brain mets - empiric antiepileptics - inhaled bronchodilators - no further CT chest for now unless pt becomes symptomatic - DVT prophylaxis Osmany NO MD
--- NOTE | 2016-08-22 16:41 | PN ---
Progress Note (short form) - Note Progress Note: Renal Follow up for Hypercalcemia Pt seen and examined at the bedside no acute complaints s/p radiation therapy x 2 Vital Signs Temperature 97.2 F L 08/22/16 10:00 Pulse Rate 80 08/22/16 10:00 Respiratory Rate 18 08/22/16 10:00 Blood Pressure 132/57 08/22/16 10:00 O2 Sat by Pulse Oximetry (%) 96 08/22/16 09:00 Intake & Output 08/19/16 08/20/16 08/21/16 08/22/16 23:59 23:59 23:59 23:59 Intake Total 1900 1999 1100 200 Balance 1900 1999 1100 200 Gen: NAD, awake and alert CVS: RRR, No M/R Lungs: Dec BS left lung Abd: soft NT/ND Ext: No edema, clubbing or cyanosis. CBC, BMP 08/20/16 06:30 08/22/16 06:30 Current Medications Aclidinium [place] (Tudorza -) 1 puff IH BID [facility] Last Admin: 08/22/16 09:08 Dose: Not Given Al Hydroxide/Mg Hydroxide (Mylanta Oral Suspension -) 30 ml PO BID PRN PRN Reason: INDIGESTION Last Admin: 08/21/16 22:13 Dose: 30 ml Albuterol Sulfate (Ventolin 0.083% Nebulizer Soln -) 1 amp NEB Q4H PRN PRN Reason: SHORT OF BREATH/WHEEZING Atorvastatin Calcium (Lipitor -) 10 mg PO HS [facility] Last Admin: 08/21/16 21:52 Dose: 10 mg Dexamethasone Sodium Phosphate (Decadron Injection -) 4 mg IVPUSH Q8H-IV [facility] Last Admin: 08/22/16 09:07 Dose: 4 mg Diltiazem HCl (Cardizem Cd -) 120 mg PO DAILY [facility] Last Admin: 08/22/16 09:08 Dose: 120 mg Heparin Sodium (Porcine) (Heparin -) 5,000 unit SQ BID [facility] Last Admin: 08/22/16 09:07 Dose: 5,000 unit Latanoprost (Xalatan 0.005% Eye Drops -) 1 drop OU HS [facility] Last Admin: 08/21/16 21:52 Dose: 1 drop Levetiracetam (Keppra -) 250 mg PO BID [facility] Last Admin: 08/22/16 09:07 Dose: 250 mg Losartan Potassium (Cozaar -) 50 mg PO DAILY [facility] Last Admin: 08/22/16 09:07 Dose: 50 mg Non-Formulary Medication (Fluticasone Propionate [Flovent Hfa]) 1 inh IH DAILY [facility] Pantoprazole Sodium (Protonix -) 40 mg PO DAILY [facility] Last Admin: 08/22/16 09:36 Dose: 40 mg Timolol Maleate (Timoptic 0.25%) 1 drop OU DAILY [facility] Last Admin: 08/22/16 09:08 Dose: Not Given A/P 71 year old woman with PMhx of Breast Ca s/p Chemo and hormonal therapy, Adenocarcinoma of the Lung currently on chemotherapy presented s/p mechanical fall at home and found to have Corrected CA of 10.8. #Hypercalcemia of Malignancy Corrected Ca is 10.7 today PTH is suppressed as expected continue oral hydation as needed no indication for IVF, Calcitonin at this time #Lung Ca with Brain Mets Supportive Care Chemo as per Oncology Neurosurgery following for contniued Radiation Tx on Steroids for brain mets #Hypertension Continue Losartan, Diltizem Thank you Will follow Vince Cole DO
--- NOTE | 2016-08-22 19:37 | PN ---
Progress Note (short form) - Note Progress Note: Rad Onc Left hemiparesis unchanged. Tolerating WBRT @ 600cGy. Plan 8 more tx. Cont decadron/PPI during RT. Neuro monitoring.
--- NOTE | 2016-08-22 20:04 | PN ---
Progress Note (short form) - Note Progress Note: Patient seen and examined LUE weakness, no headaches/blurred vision started RT Last Vital Signs Temp Pulse Resp BP Pulse Ox 98.0 F 93 H 18 128/74 96 08/22/16 18:41 08/22/16 18:41 08/22/16 18:41 08/22/16 18:41 08/22/16 09:00 HEENT: [place], EOM Intact Cor: RSR, No murmurs, No gallops Lungs: Clear to P&A Abd: Soft, Normal bowel sounds, No organomegaly Ext:LUE weakness--3/5 Current Medications Aclidinium [place] (Tudorza -) 1 puff IH BID [facility] Last Admin: 08/22/16 09:08 Dose: Not Given Al Hydroxide/Mg Hydroxide (Mylanta Oral Suspension -) 30 ml PO BID PRN PRN Reason: INDIGESTION Last Admin: 08/21/16 22:13 Dose: 30 ml Albuterol Sulfate (Ventolin 0.083% Nebulizer Soln -) 1 amp NEB Q4H PRN PRN Reason: SHORT OF BREATH/WHEEZING Last Admin: 08/22/16 17:15 Dose: 1 amp Atorvastatin Calcium (Lipitor -) 10 mg PO HS [facility] Last Admin: 08/21/16 21:52 Dose: 10 mg Dexamethasone Sodium Phosphate (Decadron Injection -) 4 mg IVPUSH Q8H-IV [facility] Last Admin: 08/22/16 19:40 Dose: 4 mg Diltiazem HCl (Cardizem Cd -) 120 mg PO DAILY [facility] Last Admin: 08/22/16 09:08 Dose: 120 mg Latanoprost (Xalatan 0.005% Eye Drops -) 1 drop OU HS [facility] Last Admin: 08/21/16 21:52 Dose: 1 drop Levetiracetam (Keppra -) 250 mg PO BID [facility] Last Admin: 08/22/16 09:07 Dose: 250 mg Losartan Potassium (Cozaar -) 50 mg PO DAILY [facility] Last Admin: 08/22/16 09:07 Dose: 50 mg Non-Formulary Medication (Fluticasone Propionate [Flovent Hfa]) 1 inh IH DAILY [facility] Pantoprazole Sodium (Protonix -) 40 mg PO DAILY [facility] Last Admin: 08/22/16 09:36 Dose: 40 mg Timolol Maleate (Timoptic 0.25%) 1 drop OU DAILY [facility] Last Admin: 08/22/16 09:08 Dose: Not Given Abnormal Lab Results 08/22/16 06:30 BUN 26 H D Random Glucose 109 H AST 9 L Albumin 3.1 L a/p 71 y/o female with lung cancer, on opdivo, now with lue weakness, falls, multiple brain mets on ct scan 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 will d/c heparin SC On decadron 4mg Q 8h Getting WBRT leukocytosis secondary to advanced maignancy plus steroids
[2016-08-22] MEDS ORDERED: PT OWN MED DRAWER 7, Y5N ONE (20:29)
[2016-08-22] MEDS: ATORVASTATIN CA 10 MG TABLET (FP) PO SCH (21:46)
[2016-08-22] MEDS: LATANOPROST 0.005% OPHTH SOLN 2.5ML BOTTLE OU SCH (21:46)
[2016-08-23] MEDS: DEXAMETHASONE SOD PHOSPHATE 4 MG/1 ML VIAL IVPUSH SCH ×3 (02:34→17:02)
[2016-08-23 07:59] LABS: CALCIUM 9.6 mg/dL (8.5-10.1); CREATININE 0.7 mg/dL (0.55-1.02)
[2016-08-23] MEDS ORDERED: PT OWN MED DRAWER 7, Y5N ONE (09:14)
[2016-08-23] MEDS: LOSARTAN POTASSIUM 25 MG TABLET PO SCH (09:41)
[2016-08-23] MEDS: PANTOPRAZOLE 40 MG TABLET (FP) PO SCH (09:41)
[2016-08-23] MEDS: ACLIDINIUM BROMIDE 400 MCG/INH AERO.POWD IH SCH ×2 (09:42→21:45)
[2016-08-23] MEDS: levETIRAcetam 250 MG TABLET (FP) PO SCH ×2 (09:42→21:44)
[2016-08-23] MEDS: TIMOLOL 0.25% OPHTHALMIC SOL 5 ML BOTTLE OU SCH (09:43)
[2016-08-23] MEDS ORDERED: ONDANSETRON 4 MG/2 ML VIAL IVPUSH ONE (10:30)
--- NOTE | 2016-08-23 12:12 | PN ---
Progress Note (short form) - Note Progress Note: Renal Follow up for Hypercalcemia Pt seen and examined at the bedside no acute complaints Vital Signs Temperature 97.5 F L 08/23/16 05:53 Pulse Rate 62 08/23/16 05:53 Respiratory Rate 20 08/23/16 05:53 Blood Pressure 145/88 08/23/16 05:53 O2 Sat by Pulse Oximetry (%) 94 L 08/22/16 21:00 Intake & Output 08/20/16 08/21/16 08/22/16 08/23/16 23:59 23:59 23:59 23:59 Intake Total 1999 1100 200 Balance 1999 1100 200 Gen: NAD, awake and alert CVS: RRR, No M/R Lungs: Dec BS left lung Abd: soft NT/ND Ext: No edema, clubbing or cyanosis. CBC, BMP 08/20/16 06:30 08/23/16 06:00 Current Medications Aclidinium [place] (Tudorza -) 1 puff IH BID [facility] Last Admin: 08/23/16 09:42 Dose: Not Given Al Hydroxide/Mg Hydroxide (Mylanta Oral Suspension -) 30 ml PO BID PRN PRN Reason: INDIGESTION Last Admin: 08/21/16 22:13 Dose: 30 ml Albuterol Sulfate (Ventolin 0.083% Nebulizer Soln -) 1 amp NEB Q4H PRN PRN Reason: SHORT OF BREATH/WHEEZING Last Admin: 08/22/16 17:15 Dose: 1 amp Atorvastatin Calcium (Lipitor -) 10 mg PO HS [facility] Last Admin: 08/22/16 21:46 Dose: 10 mg Dexamethasone Sodium Phosphate (Decadron Injection -) 4 mg IVPUSH Q8H-IV [facility] Last Admin: 08/23/16 09:41 Dose: 4 mg Diltiazem HCl (Cardizem Cd -) 120 mg PO DAILY [facility] Last Admin: 08/23/16 09:41 Dose: 120 mg Latanoprost (Xalatan 0.005% Eye Drops -) 1 drop OU HS [facility] Last Admin: 08/22/16 21:46 Dose: 1 drop Levetiracetam (Keppra -) 250 mg PO BID [facility] Last Admin: 08/23/16 09:42 Dose: 250 mg Losartan Potassium (Cozaar -) 50 mg PO DAILY [facility] Last Admin: 08/23/16 09:41 Dose: 50 mg Non-Formulary Medication (Fluticasone Propionate [Flovent Hfa]) 1 inh IH DAILY [facility] Ondansetron HCl (Zofran Injection) 4 mg IVPB Q6H PRN PRN Reason: NAUSEA Pantoprazole Sodium (Protonix -) 40 mg PO DAILY [facility] Last Admin: 08/23/16 09:41 Dose: 40 mg Timolol Maleate (Timoptic 0.25%) 1 drop OU DAILY [facility] Last Admin: 08/23/16 09:43 Dose: Not Given A/P 71 year old woman with PMhx of Breast Ca s/p Chemo and hormonal therapy, Adenocarcinoma of the Lung currently on chemotherapy presented s/p mechanical fall at home and found to have Corrected CA of 10.8. #Hypercalcemia of Malignancy Corrected Ca is 10.6 today PTH is suppressed as expected #Lung Ca with Brain Mets Supportive Care Chemo as per Oncology Neurosurgery following for contniued Radiation Tx on Steroids for brain mets #Hypertension Continue Losartan, Diltizem Vince Cole DO
--- NOTE | 2016-08-23 12:25 | PN ---
Progress Note (short form) - Note Progress Note: PULMONARY EATING LUNCH JUST RETURNED FROM RT/CENTER WAS CLOSED VSS ANICTERIC DISTANT S1S2 BS+ SOFT LEFT UPPER EXT WEAKNESS LABS/MEDS/IMAGING/NOTES REVIEWED NSCLC with Brain Mets Left sided weakness COPD Bullous Lung Disease UTI HTN - for RT - continue decadron for brain mets - empiric antiepileptics - inhaled bronchodilators - no further CT chest for now unless pt becomes symptomatic - DVT prophylaxis Osmany NO MD
--- NOTE | 2016-08-23 14:50 | PN ---
Progress Note, Physician History of Present Illness: LT ARM WEAKNESS TO START PT - Current Medication List Current Medications: Active Medications Aclidinium [place] (Tudorza -) 1 puff IH BID [facility] Last Admin: 08/23/16 09:42 Dose: Not Given Al Hydroxide/Mg Hydroxide (Mylanta Oral Suspension -) 30 ml PO BID PRN PRN Reason: INDIGESTION Last Admin: 08/21/16 22:13 Dose: 30 ml Atorvastatin Calcium (Lipitor -) 10 mg PO HS [facility] Last Admin: 08/22/16 21:46 Dose: 10 mg Dexamethasone Sodium Phosphate (Decadron Injection -) 4 mg IVPUSH Q8H-IV [facility] Last Admin: 08/23/16 09:41 Dose: 4 mg Diltiazem HCl (Cardizem Cd -) 120 mg PO DAILY [facility] Last Admin: 08/23/16 09:41 Dose: 120 mg Latanoprost (Xalatan 0.005% Eye Drops -) 1 drop OU HS [facility] Last Admin: 08/22/16 21:46 Dose: 1 drop Levetiracetam (Keppra -) 250 mg PO BID [facility] Last Admin: 08/23/16 09:42 Dose: 250 mg Losartan Potassium (Cozaar -) 50 mg PO DAILY [facility] Last Admin: 08/23/16 09:41 Dose: 50 mg Non-Formulary Medication (Fluticasone Propionate [Flovent Hfa]) 1 inh IH DAILY [facility] Ondansetron HCl (Zofran Injection) 4 mg IVPB Q6H PRN PRN Reason: NAUSEA Pantoprazole Sodium (Protonix -) 40 mg PO DAILY [facility] Last Admin: 08/23/16 09:41 Dose: 40 mg Timolol Maleate (Timoptic 0.25%) 1 drop OU DAILY [facility] Last Admin: 08/23/16 09:43 Dose: Not Given - Objective Vital Signs: Vital Signs Temperature 97.3 F L 08/23/16 14:27 Pulse Rate 93 H 08/23/16 14:27 Respiratory Rate 20 08/23/16 14:27 Blood Pressure 109/61 08/23/16 14:27 O2 Sat by Pulse Oximetry (%) 98 08/23/16 09:00 Cardiovascular: Yes: Regular Rate and Rhythm Respiratory: Yes: Regular, CTA Bilaterally Gastrointestinal: Yes: Normal Bowel Sounds, Soft Labs: CBC, BMP 08/20/16 06:30 02/09/17 06:00 INR, PTT INR 1.17 (0.82-1.09) H 08/17/16 18:44 Assessment/Plan 71-year-old female presents to the emergency department via EMS without any complaints at this time. Patient states she slipped out of her slippers earlier when getting up from her couch and almost fell to the ground. She called EMS and signed an AMA. This evening, she tried to go to the bathroom but her slippers slid while walking on the carpet and she eased herself onto the floor. Patient denies any headache, dizziness, lightheadedness, visual disturbance, neck pain, back pain, chest pain, shortness of breath, abdominal pains, extremity numbness or tingling sensation. (1) Falls Code(s): W19.XXXA - UNSPECIFIED FALL, INITIAL ENCOUNTER Qualifiers: Encounter type: initial encounter Qualified Code(s): W19.XXXA - Unspecified fall, initial encounter LIKELY MECHANICAL PT CONSULTED (2) Lung cancer Code(s): C34.90 - MALIGNANT NEOPLASM OF UNSP PART OF UNSP BRONCHUS OR LUNG CXr -> KNOWN R MASS. R/O R PTX -> PULM HYPERCa++ RESOLVED HOME Ca STOPPED RENAL CONSULT NOTED -> F/U W/U SQ HEPARIN -> CONSIDER LOVENOX FOR VTE Px (3) UTI (urinary tract infection) Code(s): N39.0 - URINARY TRACT INFECTION, SITE NOT SPECIFIED Qualifiers: Urinary tract infection type: acute cystitis Hematuria presence: without hematuria Qualified Code(s): N30.00 - Acute cystitis without hematuria APPRECIATE ID CONSULT IV ABx UCx +meli (4) Asthma Code(s): J45.909 - UNSPECIFIED ASTHMA, UNCOMPLICATED ALB NEB PRN (5) COPD (chronic obstructive pulmonary disease) Code(s): J44.9 - CHRONIC OBSTRUCTIVE PULMONARY DISEASE, UNSPECIFIED (6) HTN (hypertension) Code(s): I10 - ESSENTIAL (PRIMARY) HYPERTENSION ACCEPTABLE CONTROL MONITOR (7) Left arm weakness Code(s): M62.81 - MUSCLE WEAKNESS (GENERALIZED) NEW DENY HEAD TRAUMA CTB AND MRI SHOWS BRAIN METS (2015 MRI BRAIN NEG) -> NEURO/ONCO/NEUROSURG ON CASE XRay NEG IV STEROIDS ON RT
[2016-08-23] MEDS: ACETAMINOPHEN 500 MG TABLET (FP) PO PRN ×2 (16:07→21:44)
[2016-08-23] MEDS: ONDANSETRON 4 MG/2 ML VIAL IVPB PRN (18:44)
[2016-08-23 20:09] LABS: URINE APPEARANCE CLEAR; URINE BILIRUBIN NEGATIVE (NEGATIVE); URINE BLOOD NEGATIVE (NEGATIVE); URINE COLOR LTYELLOW; URINE GLUCOSE (UA) NEGATIVE (NEGATIVE); URINE KETONE NEGATIVE (NEGATIVE); URINE LEUK ESTERASE NEGATIVE (NEGATIVE); URINE NITRITE NEGATIVE (NEGATIVE); URINE PROTEIN NEGATIVE (NEGATIVE); URINE UROBILINOGEN NEGATIVE E.U./dl (0.2-1.0)
[2016-08-23] MEDS: LATANOPROST 0.005% OPHTH SOLN 2.5ML BOTTLE OU SCH (21:44)
[2016-08-23] MEDS: ATORVASTATIN CA 10 MG TABLET (FP) PO SCH (21:44)
--- NOTE | 2016-08-23 23:22 | PN ---
Progress Note (short form) - Note Progress Note: Patient seen and examined LUE weakness, no headaches/blurred vision Got zofran for nausea pre RT AFVSSS HEENT: SHELLEY, EOM Intact Cor: RSR, No murmurs, No gallops Lungs: Clear to P&A Abd: Soft, Normal bowel sounds, No organomegaly Ext:LUE weakness--3/5 Abnormal Lab Results 08/23/16 06:00 BUN 27 H Random Glucose 109 H Meds reviewed a/p 71 y/o female with lung cancer, on opdivo, now with lue weakness, falls, multiple brain mets on ct scan 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 will d/c heparin SC On decadron 4mg Q 8h Getting WBRT Zofran pre RT leukocytosis secondary to advanced maignancy plus steroids
[2016-08-24] MEDS: DEXAMETHASONE SOD PHOSPHATE 4 MG/1 ML VIAL IVPUSH SCH ×3 (02:21→17:38)
[2016-08-24] MEDS: ONDANSETRON 4 MG/2 ML VIAL IVPB PRN ×3 (02:21→21:49)
[2016-08-24] MEDS: ACETAMINOPHEN 500 MG TABLET (FP) PO PRN ×3 (05:35→18:05)
[2016-08-24] MEDS ORDERED: PT OWN MED DRAWER 7, Y5N ONE ×2 (09:39→20:27)
[2016-08-24] MEDS: LOSARTAN POTASSIUM 25 MG TABLET PO SCH (09:40)
[2016-08-24] MEDS: PANTOPRAZOLE 40 MG TABLET (FP) PO SCH (09:41)
[2016-08-24] MEDS: levETIRAcetam 250 MG TABLET (FP) PO SCH ×2 (09:41→21:46)
[2016-08-24] MEDS: TIMOLOL 0.25% OPHTHALMIC SOL 5 ML BOTTLE OU SCH (09:50)
[2016-08-24] MEDS: ACLIDINIUM BROMIDE 400 MCG/INH AERO.POWD IH SCH ×2 (10:34→21:46)
--- NOTE | 2016-08-24 10:40 | PN ---
Progress Note, Physician History of Present Illness: LT ARM WEAKNESS TO START PT - Current Medication List Current Medications: Active Medications Acetaminophen (Tylenol -) 1,000 mg PO Q6H PRN PRN Reason: FEVER OR PAIN Last Admin: 08/24/16 05:35 Dose: 1,000 mg Aclidinium [place] (Tudorza -) 1 puff IH BID [facility] Last Admin: 08/24/16 10:34 Dose: Not Given Al Hydroxide/Mg Hydroxide (Mylanta Oral Suspension -) 30 ml PO BID PRN PRN Reason: INDIGESTION Last Admin: 08/21/16 22:13 Dose: 30 ml Atorvastatin Calcium (Lipitor -) 10 mg PO HS [facility] Last Admin: 08/23/16 21:44 Dose: 10 mg Dexamethasone Sodium Phosphate (Decadron Injection -) 4 mg IVPUSH Q8H-IV [facility] Last Admin: 08/24/16 09:41 Dose: 4 mg Diltiazem HCl (Cardizem Cd -) 120 mg PO DAILY [facility] Last Admin: 08/24/16 09:41 Dose: 120 mg Latanoprost (Xalatan 0.005% Eye Drops -) 1 drop OU HS [facility] Last Admin: 08/23/16 21:44 Dose: 1 drop Levetiracetam (Keppra -) 250 mg PO BID [facility] Last Admin: 08/24/16 09:41 Dose: 250 mg Losartan Potassium (Cozaar -) 50 mg PO DAILY [facility] Last Admin: 08/24/16 09:40 Dose: 50 mg Non-Formulary Medication (Fluticasone Propionate [Flovent Hfa]) 1 inh IH DAILY [facility] Ondansetron HCl (Zofran Injection) 8 mg IVPB Q12H PRN PRN Reason: NAUSEA Last Admin: 08/24/16 10:28 Dose: 8 mg Pantoprazole Sodium (Protonix -) 40 mg PO DAILY [facility] Last Admin: 08/24/16 09:41 Dose: 40 mg Timolol Maleate (Timoptic 0.25%) 1 drop OU DAILY [facility] Last Admin: 08/24/16 09:50 Dose: 1 drop - Objective Vital Signs: Vital Signs Temperature 97.7 F 08/24/16 07:28 Pulse Rate 80 08/24/16 07:28 Respiratory Rate 18 08/24/16 07:28 Blood Pressure 102/75 08/24/16 07:28 O2 Sat by Pulse Oximetry (%) 98 08/23/16 21:45 Cardiovascular: Yes: Regular Rate and Rhythm Respiratory: Yes: Regular, CTA Bilaterally Gastrointestinal: Yes: Normal Bowel Sounds, Soft Neurological: Yes: Pre-Existing Deficit Labs: CBC, BMP 08/20/16 06:30 08/23/16 06:00 INR, PTT INR 1.17 (0.82-1.09) H 08/17/16 18:44 Assessment/Plan 71-year-old female presents to the emergency department via EMS without any complaints at this time. Patient states she slipped out of her slippers earlier when getting up from her couch and almost fell to the ground. She called EMS and signed an AMA. This evening, she tried to go to the bathroom but her slippers slid while walking on the carpet and she eased herself onto the floor. Patient denies any headache, dizziness, lightheadedness, visual disturbance, neck pain, back pain, chest pain, shortness of breath, abdominal pains, extremity numbness or tingling sensation. (1) Falls Code(s): W19.XXXA - UNSPECIFIED FALL, INITIAL ENCOUNTER Qualifiers: Encounter type: initial encounter Qualified Code(s): W19.XXXA - Unspecified fall, initial encounter LIKELY MECHANICAL PT CONSULTED (2) Lung cancer Code(s): C34.90 - MALIGNANT NEOPLASM OF UNSP PART OF UNSP BRONCHUS OR LUNG CXr -> KNOWN R MASS. R/O R PTX -> PULM HYPERCa++ RESOLVED HOME Ca STOPPED RENAL CONSULT NOTED -> F/U W/U SQ HEPARIN -> CONSIDER LOVENOX FOR VTE Px (3) UTI (urinary tract infection) Code(s): N39.0 - URINARY TRACT INFECTION, SITE NOT SPECIFIED Qualifiers: Urinary tract infection type: acute cystitis Hematuria presence: without hematuria Qualified Code(s): N30.00 - Acute cystitis without hematuria APPRECIATE ID CONSULT IV ABx UCx +meli (4) Asthma Code(s): J45.909 - UNSPECIFIED ASTHMA, UNCOMPLICATED ALB NEB PRN (5) COPD (chronic obstructive pulmonary disease) Code(s): J44.9 - CHRONIC OBSTRUCTIVE PULMONARY DISEASE, UNSPECIFIED (6) HTN (hypertension) Code(s): I10 - ESSENTIAL (PRIMARY) HYPERTENSION ACCEPTABLE CONTROL MONITOR (7) Left arm weakness Code(s): M62.81 - MUSCLE WEAKNESS (GENERALIZED) NEW DENY HEAD TRAUMA CTB AND MRI SHOWS BRAIN METS (2016 MRI BRAIN NEG) -> NEURO/ONCO/NEUROSURG ON CASE XRay NEG IV STEROIDS ON RT
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
--- NOTE | 2016-08-24 12:37 | PN ---
Progress Note (short form) - Note Progress Note: Renal Follow up for Hypercalcemia Pt seen and examined at the bedside s/p radiation therapy this am denies any POLANCO, confusion, lethargy, weakness denies any abd pain. good oral intake Vital Signs Temperature 97.7 F 08/24/16 07:28 Pulse Rate 80 08/24/16 07:28 Respiratory Rate 18 08/24/16 07:28 Blood Pressure 102/75 08/24/16 07:28 O2 Sat by Pulse Oximetry (%) 98 08/23/16 21:45 Intake & Output 08/21/16 08/22/16 08/23/16 08/24/16 23:59 23:59 23:59 23:59 Intake Total 1100 200 675 50 Output Total 50 Balance 1100 200 625 50 Weight 109 lb Gen: NAD, awake and alert CVS: RRR, No M/R Lungs: Dec BS left lung Abd: soft NT/ND Ext: No edema, clubbing or cyanosis. CBC, BMP 08/20/16 06:30 08/23/16 06:00 Current Medications Acetaminophen (Tylenol -) 1,000 mg PO Q6H PRN PRN Reason: FEVER OR PAIN Last Admin: 08/24/16 12:37 Dose: 1,000 mg Aclidinium [place] (Tudorza -) 1 puff IH BID [facility] Last Admin: 08/24/16 10:34 Dose: Not Given Al Hydroxide/Mg Hydroxide (Mylanta Oral Suspension -) 30 ml PO BID PRN PRN Reason: INDIGESTION Last Admin: 08/21/16 22:13 Dose: 30 ml Atorvastatin Calcium (Lipitor -) 10 mg PO HS [facility] Last Admin: 08/23/16 21:44 Dose: 10 mg Dexamethasone Sodium Phosphate (Decadron Injection -) 4 mg IVPUSH Q8H-IV [facility] Last Admin: 08/24/16 09:41 Dose: 4 mg Diltiazem HCl (Cardizem Cd -) 120 mg PO DAILY [facility] Last Admin: 08/24/16 09:41 Dose: 120 mg Latanoprost (Xalatan 0.005% Eye Drops -) 1 drop OU HS [facility] Last Admin: 08/23/16 21:44 Dose: 1 drop Levetiracetam (Keppra -) 250 mg PO BID [facility] Last Admin: 02/10/17 09:41 Dose: 250 mg Losartan Potassium (Cozaar -) 50 mg PO DAILY [facility] Last Admin: 08/24/16 09:40 Dose: 50 mg Non-Formulary Medication (Fluticasone Propionate [Flovent Hfa]) 1 inh IH DAILY [facility] Ondansetron HCl (Zofran Injection) 8 mg IVPB Q12H PRN PRN Reason: NAUSEA Last Admin: 08/24/16 10:28 Dose: 8 mg Pantoprazole Sodium (Protonix -) 40 mg PO DAILY [facility] Last Admin: 08/24/16 09:41 Dose: 40 mg Timolol Maleate (Timoptic 0.25%) 1 drop OU DAILY [facility] Last Admin: 08/24/16 09:50 Dose: 1 drop A/P 71 year old woman with PMhx of Breast Ca s/p Chemo and hormonal therapy, Adenocarcinoma of the Lung currently on chemotherapy presented s/p mechanical fall at home and found to have Corrected CA of 10.8. #Hypercalcemia of Malignancy Corrected Ca is 10.4 today PTH suppressed continue oral hydration no acute indication for IVF or more aggressive Tx #Lung Ca with Brain Mets Supportive Care Chemo as per Oncology Neurosurgery following for contniued Radiation Tx on Steroids for brain mets #Hypertension Continue Losartan, Diltizem #Leukocytoiss Reactive vs. UTI vs. Steroids WBC elevated on presentation Pt with E.Coli UTI on presentation s/p Ceftriaxone x 2 Blood cultures w/o growth Vince Cole DO
--- NOTE | 2016-08-24 14:14 | PN ---
Progress Note (short form) - Note Progress Note: Patient seen and examined Last Vital Signs Temp Pulse Resp BP Pulse Ox 97.8 F 78 18 124/70 94 L 08/24/16 09:00 08/24/16 09:00 08/24/16 09:00 08/24/16 09:00 08/24/16 09:00 Complains of neck pains RT ongoing HEENT: [place], EOM Intact Oropharynx: No thrush, No mucositis, dentures Neck: Supple Nodes: Without adenopathy Breasts: Without masses, retraction right breast Cor: RSR, No murmurs, No gallops Lungs: Clear to P&A Abd: Soft, Normal bowel sounds, No organomegaly Ext:LUE> LLE weakness Skin: No rashes, Integument intact CBC, BMP 08/20/16 06:30 08/23/16 06:00 Microbiology Current Medications Generic Name Dose Route Start Last Admin Trade Name Freq PRN Reason Stop Dose Admin Acetaminophen 1,000 mg 08/23/16 15:26 08/24/16 12:37 Tylenol - PO 1,000 mg Q6H PRN Administration FEVER OR PAIN Aclidinium [place] 1 puff 08/18/16 10:00 08/24/16 10:34 Tudorza - IH Not Given BID [facility] Al Hydroxide/Mg Hydroxide 30 ml 08/21/16 22:02 08/21/16 22:13 Mylanta Oral Suspension - PO 30 ml BID PRN Administration INDIGESTION Atorvastatin Calcium 10 mg 08/17/16 22:00 08/23/16 21:44 Lipitor - PO 10 mg HS [facility] Administration Dexamethasone Sodium Phosphate 4 mg 08/19/16 14:00 08/24/16 09:41 Decadron Injection - IVPUSH 4 mg Q8H-IV [facility] Administration Diltiazem HCl 120 mg 08/18/16 10:00 08/24/16 09:41 Cardizem Cd - PO 120 mg DAILY [facility] Administration Latanoprost 1 drop 08/17/16 22:00 08/23/16 21:44 Xalatan 0.005% Eye Drops - OU 1 drop HS [facility] Administration Levetiracetam 250 mg 08/20/16 10:15 08/24/16 09:41 Keppra - PO 250 mg BID [facility] Administration Losartan Potassium 50 mg 08/18/16 10:00 08/24/16 09:40 Cozaar - PO 50 mg DAILY [facility] Administration Non-Formulary Medication 1 inh 08/18/16 10:00 Fluticasone Propionate [Flovent Hfa] IH DAILY [facility] Ondansetron HCl 8 mg 08/24/16 07:38 08/24/16 10:28 Zofran Injection IVPB 8 mg Q12H PRN Administration NAUSEA Pantoprazole Sodium 40 mg 08/22/16 10:00 08/24/16 09:41 Protonix - PO 40 mg DAILY [facility] Administration Timolol Maleate 1 drop 08/18/16 10:00 08/24/16 09:50 Timoptic 0.25% OU 1 drop DAILY [facility] Administration 08/18/16 09:00 Blood - Peripheral Venous Blood Culture - Final NO GROWTH AFTER 5 DAYS INCUBATION 08/18/16 09:00 Blood - Peripheral Venous Blood Culture - Final NO GROWTH AFTER 5 DAYS INCUBATION 08/17/16 20:31 Urine - Urine Clean Catch Urine Culture - Final Escherichia Coli Impression: Lung ca -progression after lobectomy, carbo/Alimta/avastin/ nivolumab 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
[2016-08-24] MEDS: traMADol HCL 50 MG TABLET PO PRN ×2 (14:52→21:48)
[2016-08-24] MEDS: ATORVASTATIN CA 10 MG TABLET (FP) PO SCH (21:46)
[2016-08-24] MEDS: LATANOPROST 0.005% OPHTH SOLN 2.5ML BOTTLE OU SCH (21:48)
[2016-08-25] MEDS: DEXAMETHASONE SOD PHOSPHATE 4 MG/1 ML VIAL IVPUSH SCH ×3 (01:32→17:12)
[2016-08-25] MEDS: ACETAMINOPHEN 500 MG TABLET (FP) PO PRN ×2 (01:37→15:36)
[2016-08-25] MEDS: traMADol HCL 50 MG TABLET PO PRN ×3 (06:14→21:55)
[2016-08-25 07:28] LABS: CALCIUM 9.5 mg/dL (8.5-10.1); CREATININE 0.6 mg/dL (0.55-1.02)
[2016-08-25] MEDS ORDERED: PT OWN MED DRAWER 7, Y5N ONE ×2 (08:17→11:19)
[2016-08-25] MEDS: ONDANSETRON 4 MG/2 ML VIAL IVPB PRN (09:12)
[2016-08-25] MEDS: LOSARTAN POTASSIUM 25 MG TABLET PO SCH (11:15)
[2016-08-25] MEDS: ACLIDINIUM BROMIDE 400 MCG/INH AERO.POWD IH SCH ×3 (11:16→22:12)
[2016-08-25] MEDS: TIMOLOL 0.25% OPHTHALMIC SOL 5 ML BOTTLE OU SCH (11:16)
[2016-08-25] MEDS: PANTOPRAZOLE 40 MG TABLET (FP) PO SCH (11:16)
[2016-08-25] MEDS: levETIRAcetam 250 MG TABLET (FP) PO SCH ×2 (11:19→21:55)
--- NOTE | 2016-08-25 12:12 | PN ---
Progress Note (short form) - Note Progress Note: Progress Note (short form) - Note Progress Note: Patient seen and examined Complains of neck pains RT ongoing she feels tired today Vital Signs Period Temp Pulse Resp BP Sys/[place] Pulse Ox Last 24 Hr 97.4 F-98.1 F 57-79 18-18 118-138/57-81 94 HEENT: [place], EOM Intact Oropharynx: No thrush, No mucositis, dentures Neck: Supple Nodes: Without adenopathy Breasts: Without masses, retraction right breast Cor: RSR, No murmurs, No gallops Lungs: Clear to P&A Abd: Soft, Normal bowel sounds, No organomegaly Ext:LUE> LLE weakness Skin: No rashes, Integument intact CBC, BMP 08/20/16 06:30 08/25/16 06:00 Active Medications Generic Name Dose Route Start Last Admin Trade Name Freq PRN Reason Stop Dose Admin Acetaminophen 1,000 mg 08/23/16 15:26 08/25/16 01:37 Tylenol - PO 1,000 mg Q6H PRN Administration FEVER OR PAIN Aclidinium [place] 1 puff 08/18/16 10:00 08/25/16 11:22 Tudorza - IH Not Given BID [facility] Al Hydroxide/Mg Hydroxide 30 ml 08/21/16 22:02 08/21/16 22:13 Mylanta Oral Suspension - PO 30 ml BID PRN Administration INDIGESTION Atorvastatin Calcium 10 mg 08/17/16 22:00 08/24/16 21:46 Lipitor - PO 10 mg HS [facility] Administration Dexamethasone Sodium Phosphate 4 mg 08/19/16 14:00 08/25/16 11:15 Decadron Injection - IVPUSH 4 mg Q8H-IV [facility] Administration Diltiazem HCl 120 mg 08/18/16 10:00 08/25/16 11:15 Cardizem Cd - PO 120 mg DAILY [facility] Administration Latanoprost 1 drop 08/17/16 22:00 08/24/16 21:48 Xalatan 0.005% Eye Drops - OU 1 drop HS [facility] Administration Levetiracetam 250 mg 08/20/16 10:15 08/25/16 11:19 Keppra - PO 250 mg BID [facility] Administration Losartan Potassium 50 mg 08/18/16 10:00 08/25/16 11:15 Cozaar - PO 50 mg DAILY [facility] Administration Non-Formulary Medication 1 inh 08/18/16 10:00 Fluticasone Propionate [Flovent Hfa] IH DAILY [facility] Ondansetron HCl 8 mg 08/24/16 07:38 08/25/16 09:12 Zofran Injection IVPB 8 mg Q12H PRN Administration NAUSEA Pantoprazole Sodium 40 mg 08/22/16 10:00 08/25/16 11:16 Protonix - PO 40 mg DAILY [facility] Administration Timolol Maleate 1 drop 08/18/16 10:00 08/25/16 11:16 Timoptic 0.25% OU Not Given DAILY [facility] Tramadol HCl 50 mg 08/24/16 14:18 08/25/16 06:14 Ultram - PO 50 mg Q6H PRN Administration PAIN Impression: Lung ca -progression after lobectomy, carbo/Alimta/avastin/ nivolumab 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
--- NOTE | 2016-08-25 13:19 | PN ---
Progress Note, Physician Chief Complaint: Patient maintains good urine output. C/o Severe neck pains. On Analgesics. No chest pains. - Current Medication List Current Medications: Active Medications Acetaminophen (Tylenol -) 1,000 mg PO Q6H PRN PRN Reason: FEVER OR PAIN Last Admin: 08/25/16 01:37 Dose: 1,000 mg Aclidinium [place] (Tudorza -) 1 puff IH BID [facility] Last Admin: 08/25/16 11:22 Dose: Not Given Al Hydroxide/Mg Hydroxide (Mylanta Oral Suspension -) 30 ml PO BID PRN PRN Reason: INDIGESTION Last Admin: 08/21/16 22:13 Dose: 30 ml Atorvastatin Calcium (Lipitor -) 10 mg PO HS [facility] Last Admin: 08/24/16 21:46 Dose: 10 mg Dexamethasone Sodium Phosphate (Decadron Injection -) 4 mg IVPUSH Q8H-IV [facility] Last Admin: 08/25/16 11:15 Dose: 4 mg Diltiazem HCl (Cardizem Cd -) 120 mg PO DAILY [facility] Last Admin: 08/25/16 11:15 Dose: 120 mg Latanoprost (Xalatan 0.005% Eye Drops -) 1 drop OU HS [facility] Last Admin: 08/24/16 21:48 Dose: 1 drop Levetiracetam (Keppra -) 250 mg PO BID [facility] Last Admin: 08/25/16 11:19 Dose: 250 mg Losartan Potassium (Cozaar -) 50 mg PO DAILY [facility] Last Admin: 08/25/16 11:15 Dose: 50 mg Non-Formulary Medication (Fluticasone Propionate [Flovent Hfa]) 1 inh IH DAILY [facility] Ondansetron HCl (Zofran Injection) 8 mg IVPB Q12H PRN PRN Reason: NAUSEA Last Admin: 08/25/16 09:12 Dose: 8 mg Pantoprazole Sodium (Protonix -) 40 mg PO DAILY [facility] Last Admin: 08/25/16 11:16 Dose: 40 mg Timolol Maleate (Timoptic 0.25%) 1 drop OU DAILY [facility] Last Admin: 08/25/16 11:16 Dose: Not Given Tramadol HCl (Ultram -) 50 mg PO Q6H PRN PRN Reason: PAIN Last Admin: 08/25/16 06:14 Dose: 50 mg - Objective Vital Signs: Vital Signs Temperature 97.7 F 08/25/16 05:25 Pulse Rate 77 08/25/16 05:25 Respiratory Rate 18 08/25/16 05:25 Blood Pressure 118/57 08/25/16 05:25 O2 Sat by Pulse Oximetry (%) 94 L 08/24/16 21:00 Constitutional: Yes: Moderate Distress, Pallor Eyes: Yes: WNL Neck: Yes: Trachea Midline, Decreased ROM, Tenderness Cardiovascular: Yes: S1, S2 Respiratory: Yes: Poor Air Entry Gastrointestinal: Yes: Soft Edema: No Neurological: Yes: Alert, Oriented Psychiatric: Yes: Alert, Oriented Labs: CBC, BMP 08/20/16 06:30 08/25/16 06:00 INR, PTT INR 1.17 (0.82-1.09) H 08/17/16 18:44 Problem List - Problems (1) Asthma Code(s): J45.909 - UNSPECIFIED ASTHMA, UNCOMPLICATED (2) Brain metastases Code(s): C79.31 - SECONDARY MALIGNANT NEOPLASM OF BRAIN (3) COPD (chronic obstructive pulmonary disease) Code(s): J44.9 - CHRONIC OBSTRUCTIVE PULMONARY DISEASE, UNSPECIFIED (4) HTN (hypertension) Code(s): I10 - ESSENTIAL (PRIMARY) HYPERTENSION (5) Leukocytosis Code(s): D72.829 - ELEVATED WHITE BLOOD CELL COUNT, UNSPECIFIED (6) Lung cancer Code(s): C34.90 - MALIGNANT NEOPLASM OF UNSP PART OF UNSP BRONCHUS OR LUNG (7) UTI (urinary tract infection) Code(s): N39.0 - URINARY TRACT INFECTION, SITE NOT SPECIFIED Qualifiers: Urinary tract infection type: acute cystitis Hematuria presence: without hematuria Qualified Code(s): N30.00 - Acute cystitis without hematuria Assessment/Plan Hypercalcemia in better range in this 71 y/o female with Metastatic lung Cancer. Hydration status improved. Has severe neck pains. Concur with the current management. Will f/u with you. Kelli Martinez MD
--- NOTE | 2016-08-25 13:38 | PN ---
Progress Note, Physician History of Present Illness: pulmonary alert,c/o severe neck pain,-sob - Current Medication List Current Medications: Active Medications Acetaminophen (Tylenol -) 1,000 mg PO Q6H PRN PRN Reason: FEVER OR PAIN Last Admin: 08/25/16 01:37 Dose: 1,000 mg Aclidinium [place] (Tudorza -) 1 puff IH BID [facility] Last Admin: 08/25/16 11:22 Dose: Not Given Al Hydroxide/Mg Hydroxide (Mylanta Oral Suspension -) 30 ml PO BID PRN PRN Reason: INDIGESTION Last Admin: 08/21/16 22:13 Dose: 30 ml Atorvastatin Calcium (Lipitor -) 10 mg PO HS [facility] Last Admin: 08/24/16 21:46 Dose: 10 mg Dexamethasone Sodium Phosphate (Decadron Injection -) 4 mg IVPUSH Q8H-IV [facility] Last Admin: 08/25/16 11:15 Dose: 4 mg Diltiazem HCl (Cardizem Cd -) 120 mg PO DAILY [facility] Last Admin: 08/25/16 11:15 Dose: 120 mg Latanoprost (Xalatan 0.005% Eye Drops -) 1 drop OU HS [facility] Last Admin: 08/24/16 21:48 Dose: 1 drop Levetiracetam (Keppra -) 250 mg PO BID [facility] Last Admin: 08/25/16 11:19 Dose: 250 mg Losartan Potassium (Cozaar -) 50 mg PO DAILY [facility] Last Admin: 08/25/16 11:15 Dose: 50 mg Non-Formulary Medication (Fluticasone Propionate [Flovent Hfa]) 1 inh IH DAILY [facility] Ondansetron HCl (Zofran Injection) 8 mg IVPB Q12H PRN PRN Reason: NAUSEA Last Admin: 08/25/16 09:12 Dose: 8 mg Pantoprazole Sodium (Protonix -) 40 mg PO DAILY [facility] Last Admin: 08/25/16 11:16 Dose: 40 mg Timolol Maleate (Timoptic 0.25%) 1 drop OU DAILY [facility] Last Admin: 08/25/16 11:16 Dose: Not Given Tramadol HCl (Ultram -) 50 mg PO Q6H PRN PRN Reason: PAIN Last Admin: 08/25/16 13:16 Dose: 50 mg - Objective Vital Signs: Vital Signs Temperature 97.7 F 08/25/16 05:25 Pulse Rate 77 08/25/16 05:25 Respiratory Rate 18 08/25/16 05:25 Blood Pressure 118/57 08/25/16 05:25 O2 Sat by Pulse Oximetry (%) 94 L 08/24/16 21:00 Constitutional: Yes: Well Nourished, Moderate Distress (secondary to neck pain) Eyes: Yes: WNL HENT: Yes: WNL Neck: Yes: WNL Cardiovascular: Yes: Regular Rate and Rhythm, S1, S2 Respiratory: Yes: Diminished Gastrointestinal: Yes: WNL Extremities: Yes: WNL Edema: No Labs: CBC, BMP 08/20/16 06:30 08/25/16 06:00 INR, PTT INR 1.17 (0.82-1.09) H 08/17/16 18:44 Problem List - Problems (1) Brain metastases Code(s): C79.31 - SECONDARY MALIGNANT NEOPLASM OF BRAIN (2) [place] of lung Code(s): J43.9 - EMPHYSEMA, UNSPECIFIED (3) COPD (chronic obstructive pulmonary disease) Code(s): J44.9 - CHRONIC OBSTRUCTIVE PULMONARY DISEASE, UNSPECIFIED (4) HTN (hypertension) Code(s): I10 - ESSENTIAL (PRIMARY) HYPERTENSION (5) Lung cancer Code(s): C34.90 - MALIGNANT NEOPLASM OF UNSP PART OF UNSP BRONCHUS OR LUNG Assessment/Plan A/P NSCLC with Brain Mets COPD Bullous Lung Disease UTI HTN Neck pain - inhaled bronchodilators - analgesics - RT - decadron DR GRAVES
--- NOTE | 2016-08-25 15:27 | PN ---
Progress Note, Physician Chief Complaint: C/O NECK PAIN HAS HOT PACK TO AREA 1ST ENOUNTER WITH THIS PATIENT - Current Medication List Current Medications: Active Medications Acetaminophen (Tylenol -) 1,000 mg PO Q6H PRN PRN Reason: FEVER OR PAIN Last Admin: 08/25/16 01:37 Dose: 1,000 mg Aclidinium [place] (Tudorza -) 1 puff IH BID [facility] Last Admin: 08/25/16 11:22 Dose: Not Given Al Hydroxide/Mg Hydroxide (Mylanta Oral Suspension -) 30 ml PO BID PRN PRN Reason: INDIGESTION Last Admin: 08/21/16 22:13 Dose: 30 ml Atorvastatin Calcium (Lipitor -) 10 mg PO HS [facility] Last Admin: 08/24/16 21:46 Dose: 10 mg Dexamethasone Sodium Phosphate (Decadron Injection -) 4 mg IVPUSH Q8H-IV [facility] Last Admin: 08/25/16 11:15 Dose: 4 mg Diltiazem HCl (Cardizem Cd -) 120 mg PO DAILY [facility] Last Admin: 08/25/16 11:15 Dose: 120 mg Latanoprost (Xalatan 0.005% Eye Drops -) 1 drop OU HS [facility] Last Admin: 08/24/16 21:48 Dose: 1 drop Levetiracetam (Keppra -) 250 mg PO BID [facility] Last Admin: 08/25/16 11:19 Dose: 250 mg Losartan Potassium (Cozaar -) 50 mg PO DAILY [facility] Last Admin: 08/25/16 11:15 Dose: 50 mg Methyl Salicylate (Juan-Mayberry -) 1 applic TP BID PRN Non-Formulary Medication (Fluticasone Propionate [Flovent Hfa]) 1 inh IH DAILY [facility] Ondansetron HCl (Zofran Injection) 8 mg IVPB Q12H PRN PRN Reason: NAUSEA Last Admin: 08/25/16 09:12 Dose: 8 mg Pantoprazole Sodium (Protonix -) 40 mg PO DAILY [facility] Last Admin: 08/25/16 11:16 Dose: 40 mg Timolol Maleate (Timoptic 0.25%) 1 drop OU DAILY [facility] Last Admin: 08/25/16 11:16 Dose: Not Given Tramadol HCl (Ultram -) 50 mg PO Q6H PRN PRN Reason: PAIN Last Admin: 08/25/16 13:16 Dose: 50 mg - Objective Vital Signs: Vital Signs Temperature 97.6 F 08/25/16 13:52 Pulse Rate 80 08/25/16 13:52 Respiratory Rate 20 08/25/16 13:52 Blood Pressure 141/82 08/25/16 13:52 O2 Sat by Pulse Oximetry (%) 98 08/25/16 09:00 Constitutional: Yes: Mild Distress Eyes: Yes: WNL HENT: Yes: WNL Neck: Yes: Tenderness Cardiovascular: Yes: WNL Respiratory: Yes: WNL Gastrointestinal: Yes: WNL Genitourinary: Yes: WNL Musculoskeletal: Yes: Back Pain, Joint Stiffness, Joint Swelling, Muscle Pain Extremities: Yes: WNL Edema: No Peripheral Pulses WNL: Yes Integumentary: Yes: WNL Wound/Incision: Yes: Clean/Dry Neurological: Yes: Pre-Existing Deficit ...Motor Strength: LLE, RLE Psychiatric: Yes: Other Labs: CBC, BMP 08/20/16 06:30 08/25/16 06:00 INR, PTT INR 1.17 (0.82-1.09) H 08/17/16 18:44 Problem List - Problems (1) Asthma Code(s): J45.909 - UNSPECIFIED ASTHMA, UNCOMPLICATED (2) Brain metastases Code(s): C79.31 - SECONDARY MALIGNANT NEOPLASM OF BRAIN (3) [place] of lung Code(s): J43.9 - EMPHYSEMA, UNSPECIFIED (4) COPD (chronic obstructive pulmonary disease) Code(s): J44.9 - CHRONIC OBSTRUCTIVE PULMONARY DISEASE, UNSPECIFIED (5) Left arm weakness Code(s): M62.81 - MUSCLE WEAKNESS (GENERALIZED) (6) Leukocytosis Code(s): D72.829 - ELEVATED WHITE BLOOD CELL COUNT, UNSPECIFIED (7) Lung cancer Code(s): C34.90 - MALIGNANT NEOPLASM OF UNSP PART OF UNSP BRONCHUS OR LUNG Assessment/Plan STEROIDS IV PAIN CONTROL LABS REVIEWED CHART REVIEWED DARWIN HWANG FOR PAIN CAN CONSIDE PAIN MANAGEMENT IF NOT BETTER
[2016-08-25] MEDS: METHYL SALICYLATE/MENTHOL OINT 30 GM TUBE TP PRN (15:29)
[2016-08-25] MEDS: LIDOCAINE 5% TOPICAL PATCH TP SCH (17:11)
[2016-08-25] MEDS: ATORVASTATIN CA 10 MG TABLET (FP) PO SCH (21:55)
[2016-08-25] MEDS: LATANOPROST 0.005% OPHTH SOLN 2.5ML BOTTLE OU SCH (21:55)
[2016-08-26] MEDS: DEXAMETHASONE SOD PHOSPHATE 4 MG/1 ML VIAL IVPUSH SCH ×3 (02:07→17:24)
[2016-08-26 07:44] LABS: ANION GAP 10 (8-16); CALCIUM 9.5 mg/dL (8.5-10.1); CO2 28 mmol/L (21-32); GLUCOSE,RANDOM 119 mg/dL (74-106); MAGNESIUM 2.2 mg/dL (1.8-2.4)
[2016-08-26 07:48] LABS: ALK PHOS 71 U/L (45-117); BILIRUBIN,TOTAL 0.4 mg/dL (0.2-1.0); CREATININE 0.7 mg/dL (0.55-1.02); PHOSPHOROUS 3.8 mg/dL (2.5-4.9); SGOT/AST 13 U/L (15-37); SGPT/ALT 13 U/L (12-78); TOT PROT 6.4 g/dl (6.4-8.2)
[2016-08-26] MEDS: LIDOCAINE 5% TOPICAL PATCH TP SCH (10:42)
[2016-08-26] MEDS: morphine SO4 SUSTAINED ACTING 15 MG TABLET.SA PO SCH ×2 (10:42→21:30)
[2016-08-26] MEDS: PANTOPRAZOLE 40 MG TABLET (FP) PO SCH (10:43)
[2016-08-26] MEDS: LOSARTAN POTASSIUM 25 MG TABLET PO SCH (10:43)
[2016-08-26] MEDS: ACLIDINIUM BROMIDE 400 MCG/INH AERO.POWD IH SCH ×2 (10:43→21:31)
[2016-08-26] MEDS: METHYL SALICYLATE/MENTHOL OINT 30 GM TUBE TP PRN (10:43)
[2016-08-26] MEDS: levETIRAcetam 250 MG TABLET (FP) PO SCH ×2 (10:43→21:31)
--- NOTE | 2016-08-26 12:42 | PN ---
Progress Note, Physician Chief Complaint: AWAKE C/O CSPINE PAIN - Current Medication List Current Medications: Active Medications Acetaminophen (Tylenol -) 1,000 mg PO Q6H PRN PRN Reason: FEVER OR PAIN Last Admin: 08/25/16 15:36 Dose: 1,000 mg Aclidinium [place] (Tudorza -) 1 puff IH BID [facility] [place] Last Admin: 08/26/16 10:43 Dose: Not Given Al Hydroxide/Mg Hydroxide (Mylanta Oral Suspension -) 30 ml PO BID PRN PRN Reason: INDIGESTION Last Admin: 08/21/16 22:13 Dose: 30 ml Atorvastatin Calcium (Lipitor -) 10 mg PO HS [facility] [place] Last Admin: 08/25/16 21:55 Dose: 10 mg Dexamethasone Sodium Phosphate (Decadron Injection -) 4 mg IVPUSH Q8H-IV [facility] [place] Last Admin: 08/26/16 10:43 Dose: 4 mg Diltiazem HCl (Cardizem Cd -) 120 mg PO DAILY [facility] Last Admin: 08/26/16 10:43 Dose: 120 mg Latanoprost (Xalatan 0.005% Eye Drops -) 1 drop OU HS [facility] Last Admin: 08/25/16 21:55 Dose: 1 drop Levetiracetam (Keppra -) 250 mg PO BID [facility] Last Admin: 08/26/16 10:43 Dose: 250 mg Lidocaine (Lidoderm Patch -) 1 patch TP DAILY [facility] Last Admin: 08/26/16 10:42 Dose: 1 patch Losartan Potassium (Cozaar -) 50 mg PO DAILY [facility] Last Admin: 08/26/16 10:43 Dose: 50 mg Methyl Salicylate (Juan-Mayberry -) 1 applic TP BID [facility] Last Admin: 08/26/16 10:43 Dose: 1 applic Morphine Sulfate (Ms Contin -) 15 mg PO BID [facility] [place] Last Admin: 08/26/16 10:42 Dose: 15 mg Non-Formulary Medication (Fluticasone Propionate [Flovent Hfa]) 1 inh IH DAILY [facility] [place] Ondansetron HCl (Zofran Injection) 8 mg IVPB Q12H PRN PRN Reason: NAUSEA Last Admin: 08/25/16 09:12 Dose: 8 mg Pantoprazole Sodium (Protonix -) 40 mg PO DAILY [facility] [place] Last Admin: 08/26/16 10:43 Dose: 40 mg Timolol Maleate (Timoptic 0.25%) 1 drop OU DAILY [facility] Last Admin: 08/25/16 11:16 Dose: Not Given Tramadol HCl (Ultram -) 50 mg PO Q6H PRN PRN Reason: PAIN Last Admin: 08/25/16 21:55 Dose: 50 mg - Objective Vital Signs: Vital Signs Temperature 98.6 F 08/26/16 05:35 Pulse Rate 78 08/26/16 05:35 Respiratory Rate 18 08/26/16 05:35 Blood Pressure 119/75 08/26/16 05:35 O2 Sat by Pulse Oximetry (%) 96 08/25/16 22:00 Constitutional: Yes: Moderate Distress Eyes: Yes: WNL HENT: Yes: WNL Neck: Yes: WNL Cardiovascular: Yes: WNL Respiratory: Yes: WNL Gastrointestinal: Yes: WNL Genitourinary: Yes: Other Musculoskeletal: Yes: Back Pain, Joint Stiffness, Joint Swelling, Muscle Pain, Muscle Weakness Extremities: Yes: WNL Edema: No Peripheral Pulses WNL: Yes Integumentary: Yes: WNL Wound/Incision: Yes: Clean/Dry Neurological: Yes: Weakness ...Motor Strength: LLE, RLE Psychiatric: Yes: Other Labs: CBC, BMP 08/20/16 06:30 08/26/16 06:00 INR, PTT INR 1.17 (0.82-1.09) H 08/17/16 18:44 Problem List - Problems (1) Asthma Code(s): J45.909 - UNSPECIFIED ASTHMA, UNCOMPLICATED (2) Brain metastases Code(s): C79.31 - SECONDARY MALIGNANT NEOPLASM OF BRAIN (3) [place] of lung Code(s): J43.9 - EMPHYSEMA, UNSPECIFIED (4) COPD (chronic obstructive pulmonary disease) Code(s): J44.9 - CHRONIC OBSTRUCTIVE PULMONARY DISEASE, UNSPECIFIED (5) Left arm weakness Code(s): M62.81 - MUSCLE WEAKNESS (GENERALIZED) (6) Leukocytosis Code(s): D72.829 - ELEVATED WHITE BLOOD CELL COUNT, UNSPECIFIED (7) Lung cancer Code(s): C34.90 - MALIGNANT NEOPLASM OF UNSP PART OF UNSP BRONCHUS OR LUNG Assessment/Plan STEROIDS IV PAIN CONTROL LABS REVIEWED CHART REVIEWED NEURONTIN STARTED AND MS XAVIER GRANADOS TO ERI FOR PAIN CAN CONSIDE PAIN MANAGEMENT IF NOT BETTER
[2016-08-26 13:08] LABS: MCH 26.2 pg (25.7-33.7); MCHC 31.7 g/dl (32.0-36.0); MEAN CELL VOLUME 82.5 fl (80-96); MEAN PLT VOLUME 7.9 fl (7.5-11.1); PLATELET COUNT 387 K/MM3 (134-434); RDW 18.5 % (11.6-15.6)
[2016-08-26 13:13] LABS: WHITE BLOOD COUNT 42.1 K/mm3 (4.0-10.0)
--- NOTE | 2016-08-26 13:17 | PN ---
Progress Note (short form) - Note Progress Note: Progress Note (short form) - Note Progress Note: Patient seen and examined complains of neck pains and has neck pads on both sides on the phone RT ongoing Vital Signs Period Temp Pulse Resp BP Sys/Menon Pulse Ox Last 24 Hr 97.6 F-98.6 F 73-88 18-20 119-154/72-95 96 CBC, BMP 08/26/16 13:04 08/26/16 06:00 Active Medications Generic Name Dose Route Start Last Admin Trade Name Freq PRN Reason Stop Dose Admin Acetaminophen 1,000 mg 08/23/16 15:26 08/25/16 15:36 Tylenol - PO 1,000 mg Q6H PRN Administration FEVER OR PAIN Aclidinium [place] 1 puff 08/18/16 10:00 08/26/16 10:43 Tudorza - IH Not Given BID [facility] Al Hydroxide/Mg Hydroxide 30 ml 08/21/16 22:02 08/21/16 22:13 Mylanta Oral Suspension - PO 30 ml BID PRN Administration INDIGESTION Atorvastatin Calcium 10 mg 08/17/16 22:00 08/25/16 21:55 Lipitor - PO 10 mg HS [facility] Administration Dexamethasone Sodium Phosphate 4 mg 08/19/16 14:00 08/26/16 10:43 Decadron Injection - IVPUSH 4 mg Q8H-IV [facility] Administration Diltiazem HCl 120 mg 08/18/16 10:00 08/26/16 10:43 Cardizem Cd - PO 120 mg DAILY [facility] Administration Gabapentin 100 mg 08/26/16 14:00 Neurontin - PO TID [facility] Latanoprost 1 drop 08/17/16 22:00 08/25/16 21:55 Xalatan 0.005% Eye Drops - OU 1 drop HS [facility] Administration Levetiracetam 250 mg 08/20/16 10:15 08/26/16 10:43 Keppra - PO 250 mg BID [facility] Administration Lidocaine 1 patch 08/25/16 17:00 08/26/16 10:42 Lidoderm Patch - TP 1 patch DAILY [facility] Administration Losartan Potassium 50 mg 08/18/16 10:00 08/26/16 10:43 Cozaar - PO 50 mg DAILY [facility] Administration Methyl Salicylate 1 applic 08/25/16 14:44 08/26/16 10:43 Juan-Mayberry - TP 1 applic BID PRN Administration Morphine Sulfate 15 mg 08/26/16 10:00 08/26/16 10:42 Ms Contin - PO 15 mg BID [facility] Administration Non-Formulary Medication 1 inh 08/18/16 10:00 Fluticasone Propionate [Flovent Hfa] IH DAILY [facility] Ondansetron HCl 8 mg 08/24/16 07:38 08/25/16 09:12 Zofran Injection IVPB 8 mg Q12H PRN Administration NAUSEA Pantoprazole Sodium 40 mg 08/22/16 10:00 08/26/16 10:43 Protonix - PO 40 mg DAILY [facility] Administration Timolol Maleate 1 drop 08/18/16 10:00 08/25/16 11:16 Timoptic 0.25% OU Not Given DAILY [facility] Tramadol HCl 50 mg 08/24/16 14:18 08/25/16 21:55 Ultram - PO 50 mg Q6H PRN Administration PAIN Impression: Lung ca -progression after lobectomy, carbo/Alimta/avastin/ nivolumab FORGE HAND Mets - ongoing RT Breast Ca- s/p therapy Neck pains- for X-rays and tramadol Leucocytosis : likely form steroids, as she does not look septic. But she is also on high dose steroids. Her previous WCC was 20k 6 days before , a/w differential Urine- prelim Group D Enterococcus a/w c/s, ?ID consult
[2016-08-26] MEDS: TIMOLOL 0.25% OPHTHALMIC SOL 5 ML BOTTLE OU SCH (14:13)
[2016-08-26 14:17] LABS: PLATELET ESTIMATE ADEQUATE (NORMAL)
[2016-08-26] MEDS: ACETAMINOPHEN 500 MG TABLET (FP) PO PRN (14:33)
[2016-08-26] MEDS: GABAPENTIN 100 MG CAPSULE (FP) PO SCH ×2 (14:33→21:31)
--- NOTE | 2016-08-26 15:49 | PN ---
Progress Note, Physician Chief Complaint: Patient complaints of severe neck pains. Analgesics regimen modified. For Xrays No chest pains. Maintains good urine output - Current Medication List Current Medications: Active Medications Acetaminophen (Tylenol -) 1,000 mg PO Q6H PRN PRN Reason: FEVER OR PAIN Last Admin: 08/26/16 14:33 Dose: 1,000 mg Aclidinium [place] (Tudorza -) 1 puff IH BID [facility] Last Admin: 08/26/16 10:43 Dose: Not Given Al Hydroxide/Mg Hydroxide (Mylanta Oral Suspension -) 30 ml PO BID PRN PRN Reason: INDIGESTION Last Admin: 08/21/16 22:13 Dose: 30 ml Atorvastatin Calcium (Lipitor -) 10 mg PO HS [facility] Last Admin: 08/25/16 21:55 Dose: 10 mg Dexamethasone Sodium Phosphate (Decadron Injection -) 4 mg IVPUSH Q8H-IV [facility] Last Admin: 08/26/16 10:43 Dose: 4 mg Diltiazem HCl (Cardizem Cd -) 120 mg PO DAILY [facility] Last Admin: 08/26/16 10:43 Dose: 120 mg Gabapentin (Neurontin -) 100 mg PO TID [facility] Last Admin: 08/26/16 14:33 Dose: 100 mg Latanoprost (Xalatan 0.005% Eye Drops -) 1 drop OU HS [facility] Last Admin: 08/25/16 21:55 Dose: 1 drop Levetiracetam (Keppra -) 250 mg PO BID [facility] Last Admin: 08/26/16 10:43 Dose: 250 mg Lidocaine (Lidoderm Patch -) 1 patch TP DAILY [facility] Last Admin: 08/26/16 10:42 Dose: 1 patch Losartan Potassium (Cozaar -) 50 mg PO DAILY [facility] Last Admin: 08/26/16 10:43 Dose: 50 mg Methyl Salicylate (Juan-Mayberry -) 1 applic TP BID [facility] Last Admin: 08/26/16 10:43 Dose: 1 applic Morphine Sulfate (Ms Contin -) 15 mg PO BID [facility] Last Admin: 08/26/16 10:42 Dose: 15 mg Non-Formulary Medication (Fluticasone Propionate [Flovent Hfa]) 1 inh IH DAILY [facility] Ondansetron HCl (Zofran Injection) 8 mg IVPB Q12H PRN PRN Reason: NAUSEA Last Admin: 08/25/16 09:12 Dose: 8 mg Pantoprazole Sodium (Protonix -) 40 mg PO DAILY [facility] Last Admin: 08/26/16 10:43 Dose: 40 mg Timolol Maleate (Timoptic 0.25%) 1 drop OU DAILY [facility] Last Admin: 08/26/16 14:13 Dose: Not Given Tramadol HCl (Ultram -) 50 mg PO Q6H PRN PRN Reason: PAIN Last Admin: 08/25/16 21:55 Dose: 50 mg - Objective Vital Signs: Vital Signs Temperature 97.9 F 08/26/16 13:48 Pulse Rate 94 H 08/26/16 13:48 Respiratory Rate 20 08/26/16 13:48 Blood Pressure 136/87 08/26/16 13:48 O2 Sat by Pulse Oximetry (%) 96 08/25/16 22:00 Constitutional: Yes: Severe Distress Eyes: Yes: WNL Neck: Yes: Decreased ROM, Rigid, Tenderness Cardiovascular: Yes: Regular Rate and Rhythm, S1, S2 Respiratory: Yes: CTA Bilaterally Gastrointestinal: Yes: Normal Bowel Sounds, Soft Neurological: Yes: Alert, Oriented Psychiatric: Yes: Oriented Labs: CBC, BMP 08/26/16 13:04 08/26/16 06:00 INR, PTT INR 1.17 (0.82-1.09) H 08/17/16 18:44 Problem List - Problems (1) Asthma Code(s): J45.909 - UNSPECIFIED ASTHMA, UNCOMPLICATED (2) Brain metastases Code(s): C79.31 - SECONDARY MALIGNANT NEOPLASM OF BRAIN (3) COPD (chronic obstructive pulmonary disease) Code(s): J44.9 - CHRONIC OBSTRUCTIVE PULMONARY DISEASE, UNSPECIFIED (4) HTN (hypertension) Code(s): I10 - ESSENTIAL (PRIMARY) HYPERTENSION (5) Leukocytosis Code(s): D72.829 - ELEVATED WHITE BLOOD CELL COUNT, UNSPECIFIED (6) Lung cancer Code(s): C34.90 - MALIGNANT NEOPLASM OF UNSP PART OF UNSP BRONCHUS OR LUNG (7) UTI (urinary tract infection) Code(s): N39.0 - URINARY TRACT INFECTION, SITE NOT SPECIFIED Qualifiers: Urinary tract infection type: acute cystitis Hematuria presence: without hematuria Qualified Code(s): N30.00 - Acute cystitis without hematuria (8) Hypercalcemia Code(s): E83.52 - HYPERCALCEMIA Assessment/Plan Hypercalcemia in better range in this 71 y/o female with Metastatic lung Cancer. Corrected Ca 10.5 Hydration status improved. Has severe neck pains. Pain medications modified. W/u as ordered. Concur with the current management. Leukocytosis. Possibly steroid dependent. Will f/u with you. Kelli Martinez MD
[2016-08-26] MEDS ORDERED: AMINO ACIDS 4.25%/D5W 1,000 ML IV SCH (16:00)
[2016-08-26] MEDS: ONDANSETRON 4 MG/2 ML VIAL IVPB PRN (17:24)
[2016-08-26] MEDS: LATANOPROST 0.005% OPHTH SOLN 2.5ML BOTTLE OU SCH (21:31)
[2016-08-26] MEDS: ATORVASTATIN CA 10 MG TABLET (FP) PO SCH (21:31)
[2016-08-27] MEDS: DEXAMETHASONE SOD PHOSPHATE 4 MG/1 ML VIAL IVPUSH SCH ×3 (01:17→18:27)
[2016-08-27] MEDS: traMADol HCL 50 MG TABLET PO PRN (01:17)
[2016-08-27] MEDS: GABAPENTIN 100 MG CAPSULE (FP) PO SCH ×4 (07:09→21:36)
--- NOTE | 2016-08-27 09:18 | PN ---
Progress Note, Physician History of Present Illness: WEAK THIS AM - Current Medication List Current Medications: Active Medications Acetaminophen (Tylenol -) 1,000 mg PO Q6H PRN PRN Reason: FEVER OR PAIN Last Admin: 08/26/16 14:33 Dose: 1,000 mg Aclidinium [place] (Tudorza -) 1 puff IH BID [facility] Last Admin: 08/26/16 21:31 Dose: Not Given Al Hydroxide/Mg Hydroxide (Mylanta Oral Suspension -) 30 ml PO BID PRN PRN Reason: INDIGESTION Last Admin: 08/21/16 22:13 Dose: 30 ml Atorvastatin Calcium (Lipitor -) 10 mg PO HS [facility] Last Admin: 08/26/16 21:31 Dose: 10 mg Dexamethasone Sodium Phosphate (Decadron Injection -) 4 mg IVPUSH Q8H-IV [facility] Last Admin: 08/27/16 01:17 Dose: 4 mg Diltiazem HCl (Cardizem Cd -) 120 mg PO DAILY [facility] Last Admin: 08/26/16 10:43 Dose: 120 mg Gabapentin (Neurontin -) 100 mg PO TID [facility] Last Admin: 08/27/16 07:09 Dose: 100 mg Amino Acids (Clinimix -) 1,000 mls @ 42 mls/hr IV ASDIR [facility] Last Admin: 08/26/16 17:23 Dose: 42 mls/hr Latanoprost (Xalatan 0.005% Eye Drops -) 1 drop OU HS [facility] Last Admin: 08/26/16 21:31 Dose: 1 drop Levetiracetam (Keppra -) 250 mg PO BID [facility] Last Admin: 08/26/16 21:31 Dose: 250 mg Lidocaine (Lidoderm Patch -) 1 patch TP DAILY [facility] Last Admin: 08/26/16 10:42 Dose: 1 patch Losartan Potassium (Cozaar -) 50 mg PO DAILY [facility] Last Admin: 08/26/16 10:43 Dose: 50 mg Methyl Salicylate (Juan-Mayberry -) 1 applic TP BID [facility] Last Admin: 08/26/16 10:43 Dose: 1 applic Morphine Sulfate (Ms Contin -) 15 mg PO BID [facility] Last Admin: 08/26/16 21:30 Dose: 15 mg Non-Formulary Medication (Fluticasone Propionate [Flovent Hfa]) 1 inh IH DAILY [facility] Ondansetron HCl (Zofran Injection) 8 mg IVPB Q12H PRN PRN Reason: NAUSEA Last Admin: 08/26/16 17:24 Dose: 8 mg Pantoprazole Sodium (Protonix -) 40 mg PO DAILY [facility] Last Admin: 08/26/16 10:43 Dose: 40 mg Timolol Maleate (Timoptic 0.25%) 1 drop OU DAILY [facility] Last Admin: 08/26/16 14:13 Dose: Not Given Tramadol HCl (Ultram -) 50 mg PO Q6H PRN PRN Reason: PAIN Last Admin: 08/27/16 01:17 Dose: 50 mg - Objective Vital Signs: Vital Signs Temperature 97.6 F 08/27/16 06:27 Pulse Rate 72 08/27/16 06:27 Respiratory Rate 20 08/27/16 06:27 Blood Pressure 141/59 08/27/16 06:27 O2 Sat by Pulse Oximetry (%) 94 L 08/26/16 21:20 Cardiovascular: Yes: Regular Rate and Rhythm Respiratory: Yes: Diminished Gastrointestinal: Yes: Normal Bowel Sounds, Soft Labs: CBC, BMP 08/26/16 13:04 08/26/16 06:00 INR, PTT INR 1.17 (0.82-1.09) H 08/17/16 18:44 Assessment/Plan 71-year-old female presents to the emergency department via EMS without any complaints at this time. Patient states she slipped out of her slippers earlier when getting up from her couch and almost fell to the ground. She called EMS and signed an AMA. This evening, she tried to go to the bathroom but her slippers slid while walking on the carpet and she eased herself onto the floor. Patient denies any headache, dizziness, lightheadedness, visual disturbance, neck pain, back pain, chest pain, shortness of breath, abdominal pains, extremity numbness or tingling sensation. (1) Falls Code(s): W19.XXXA - UNSPECIFIED FALL, INITIAL ENCOUNTER Qualifiers: Encounter type: initial encounter Qualified Code(s): W19.XXXA - Unspecified fall, initial encounter LIKELY MECHANICAL PT CONSULTED (2) Lung cancer Code(s): C34.90 - MALIGNANT NEOPLASM OF UNSP PART OF UNSP BRONCHUS OR LUNG CXr -> KNOWN R MASS. R/O R PTX -> PULM HYPERCa++ RESOLVED HOME Ca STOPPED RENAL CONSULT NOTED -> F/U W/U SQ HEPARIN -> CONSIDER LOVENOX FOR VTE Px (3) Leukocytosis PROBABLY DUE TO STEROIDS MONITOR AFEBRILE (4) Back Pain ON PAIN MEDS IF WORSE--CONSIDER PAIN CONSULT (5) COPD (chronic obstructive pulmonary disease) Code(s): J44.9 - CHRONIC OBSTRUCTIVE PULMONARY DISEASE, UNSPECIFIED (6) HTN (hypertension) Code(s): I10 - ESSENTIAL (PRIMARY) HYPERTENSION ACCEPTABLE CONTROL MONITOR (7) Left arm weakness Code(s): M62.81 - MUSCLE WEAKNESS (GENERALIZED) NEW DENY HEAD TRAUMA CTB AND MRI SHOWS BRAIN METS (2016 MRI BRAIN NEG) -> NEURO/ONCO/NEUROSURG ON CASE IV STEROIDS ON RT
--- NOTE | 2016-08-27 10:33 | PN ---
Progress Note (short form) - Note Progress Note: Still with some neck pain issues. No CP or SOB. Some dry cough. Intake & Output 08/24/16 08/25/16 08/26/16 08/27/16 23:59 23:59 23:59 23:59 Intake Total 600 225 Output Total 1 Balance 600 224 Weight 109 lb 115 lb 8 oz Last Vital Signs Temp Pulse Resp BP Pulse Ox 98.6 F 89 18 144/77 94 L 08/27/16 10:05 08/27/16 10:05 08/27/16 10:05 08/27/16 10:05 08/26/16 21:20 Active Medications Acetaminophen (Tylenol -) 1,000 mg PO Q6H PRN PRN Reason: FEVER OR PAIN Last Admin: 08/26/16 14:33 Dose: 1,000 mg Aclidinium [place] (Tudorza -) 1 puff IH BID [facility] Last Admin: 08/26/16 21:31 Dose: Not Given Al Hydroxide/Mg Hydroxide (Mylanta Oral Suspension -) 30 ml PO BID PRN PRN Reason: INDIGESTION Last Admin: 08/21/16 22:13 Dose: 30 ml Atorvastatin Calcium (Lipitor -) 10 mg PO HS [facility] Last Admin: 08/26/16 21:31 Dose: 10 mg Dexamethasone Sodium Phosphate (Decadron Injection -) 4 mg IVPUSH Q8H-IV [facility] Last Admin: 08/27/16 01:17 Dose: 4 mg Diltiazem HCl (Cardizem Cd -) 120 mg PO DAILY [facility] Last Admin: 08/26/16 10:43 Dose: 120 mg Gabapentin (Neurontin -) 100 mg PO TID [facility] Last Admin: 08/27/16 07:09 Dose: 100 mg Amino Acids (Clinimix -) 1,000 mls @ 42 mls/hr IV ASDIR [facility] Last Admin: 08/26/16 17:23 Dose: 42 mls/hr Latanoprost (Xalatan 0.005% Eye Drops -) 1 drop OU HS [facility] Last Admin: 08/26/16 21:31 Dose: 1 drop Levetiracetam (Keppra -) 250 mg PO BID [facility] Last Admin: 08/26/16 21:31 Dose: 250 mg Lidocaine (Lidoderm Patch -) 1 patch TP DAILY [facility] Last Admin: 08/26/16 10:42 Dose: 1 patch Losartan Potassium (Cozaar -) 50 mg PO DAILY [facility] Last Admin: 08/26/16 10:43 Dose: 50 mg Methyl Salicylate (Juan-Mayberry -) 1 applic TP BID PRN Last Admin: 08/26/16 10:43 Dose: 1 applic Morphine Sulfate (Ms Contin -) 15 mg PO BID [facility] Last Admin: 08/26/16 21:30 Dose: 15 mg Non-Formulary Medication (Fluticasone Propionate [Flovent Hfa]) 1 inh IH DAILY [facility] Ondansetron HCl (Zofran Injection) 8 mg IVPB Q12H PRN PRN Reason: NAUSEA Last Admin: 08/26/16 17:24 Dose: 8 mg Pantoprazole Sodium (Protonix -) 40 mg PO DAILY [facility] Last Admin: 08/26/16 10:43 Dose: 40 mg Timolol Maleate (Timoptic 0.25%) 1 drop OU DAILY [facility] Last Admin: 08/26/16 14:13 Dose: Not Given Tramadol HCl (Ultram -) 50 mg PO Q6H PRN PRN Reason: PAIN Last Admin: 08/27/16 01:17 Dose: 50 mg Constitutional: Yes: Uncomfortable due to pain Eyes: Yes: WNL HENT: Yes: WNL Neck: Yes: WNL Cardiovascular: Yes: Regular Rate and Rhythm, S1, S2 Respiratory: Yes: Diminished Gastrointestinal: Yes: WNL Extremities: Yes: WNL Edema: No Labs: Laboratory Results - last 24 hr 08/26/16 13:04 WBC 42.1 H* D RBC 4.48 Hgb 11.7 D Hct 37.0 D MCV 82.5 MCHC 31.7 L RDW 18.5 H Plt Count 387 MPV 7.9 Neutrophils % 89.0 H Lymphocytes % 3.0 L D Monocytes % 3.0 L Eosinophils % 0.0 D Basophils % 0.0 Band Neutrophils 1.0 Myelocytes 3 H D Differential Comment Manual diff done Hypersegmented Neuts Few Reactive Lymphocytes 1 Platelet Estimate Adequate Problem List - Problems (1) Brain metastases Code(s): C79.31 - SECONDARY MALIGNANT NEOPLASM OF BRAIN (2) Bull[place] of lung Code(s): J43.9 - EMPHYSEMA, UNSPECIFIED (3) COPD (chronic obstructive pulmonary disease) Code(s): J44.9 - CHRONIC OBSTRUCTIVE PULMONARY DISEASE, UNSPECIFIED (4) HTN (hypertension) Code(s): I10 - ESSENTIAL (PRIMARY) HYPERTENSION (5) Lung cancer Code(s): C34.90 - MALIGNANT NEOPLASM OF UNSP PART OF UNSP BRONCHUS OR LUNG Assessment/Plan NSCLC with Brain Mets COPD Bullous Lung Disease UTI HTN Neck pain - inhaled bronchodilators - analgesics - RT - decadron Dr Sherwood Problem List - Problems (1) Asthma Code(s): J45.909 - UNSPECIFIED ASTHMA, UNCOMPLICATED (2) COPD (chronic obstructive pulmonary disease) Code(s): J44.9 - CHRONIC OBSTRUCTIVE PULMONARY DISEASE, UNSPECIFIED (3) Falls Code(s): W19.XXXA - UNSPECIFIED FALL, INITIAL ENCOUNTER Qualifiers: Encounter type: initial encounter Qualified Code(s): W19.XXXA - Unspecified fall, initial encounter (4) HTN (hypertension) Code(s): I10 - ESSENTIAL (PRIMARY) HYPERTENSION (5) Lung cancer Code(s): C34.90 - MALIGNANT NEOPLASM OF UNSP PART OF UNSP BRONCHUS OR LUNG (6) Bulla of lung Code(s): J43.9 - EMPHYSEMA, UNSPECIFIED
[2016-08-27] MEDS ORDERED: PT OWN MED DRAWER 7, Y5N ONE ×2 (10:42→20:24)
[2016-08-27] MEDS: LOSARTAN POTASSIUM 25 MG TABLET PO SCH (10:50)
[2016-08-27] MEDS: levETIRAcetam 250 MG TABLET (FP) PO SCH ×2 (10:50→21:35)
[2016-08-27] MEDS: LIDOCAINE 5% TOPICAL PATCH TP SCH (10:50)
[2016-08-27] MEDS: morphine SO4 SUSTAINED ACTING 15 MG TABLET.SA PO SCH ×2 (10:51→21:36)
[2016-08-27] MEDS: PANTOPRAZOLE 40 MG TABLET (FP) PO SCH (10:52)
[2016-08-27] MEDS: TIMOLOL 0.25% OPHTHALMIC SOL 5 ML BOTTLE OU SCH (10:53)
[2016-08-27] MEDS: ACLIDINIUM BROMIDE 400 MCG/INH AERO.POWD IH SCH ×3 (10:54→21:36)
[2016-08-27] MEDS: morphine CARPU-JECT 2 MG/1 ML DISP.SYRIN IVPUSH PRN ×2 (12:23→18:28)
[2016-08-27] MEDS: AMINO ACIDS 4.25%/D5W 1,000 ML IV SCH (15:00)
[2016-08-27] MEDS ORDERED: FENTANYL PATCH WASTE TD PRN (18:53)
[2016-08-27] MEDS: fentaNYL 25mcg/hr PATCH.TD72 TD SCH (19:05)
[2016-08-27] MEDS: ATORVASTATIN CA 10 MG TABLET (FP) PO SCH (21:35)
[2016-08-27] MEDS: LATANOPROST 0.005% OPHTH SOLN 2.5ML BOTTLE OU SCH (21:36)
--- NOTE | 2016-08-27 21:52 | PN ---
Progress Note (short form) - Note Progress Note: Patient seen and examined LUE weakness, confused, moaning Last Vital Signs Temp Pulse Resp BP Pulse Ox 98.0 F 92 H 20 131/81 92 L 08/27/16 18:59 08/27/16 21:43 08/27/16 21:43 08/27/16 21:43 08/27/16 21:00 HEENT: SHELLEY, EOM Intact Cor: RSR, No murmurs, No gallops Lungs: Clear to P&A Abd: Soft, Normal bowel sounds, No organomegaly Ext:LUE weakness- Abnormal Lab Results 08/23/16 06:00 BUN 27 H Random Glucose 109 H Meds reviewed a/p 71 y/o female with lung cancer, on opdivo, now with lue weakness, falls, multiple brain mets on ct scan 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 On decadron 4mg Q 8h--increase to Q6h Getting WBRT worsening functional status/leukocytosis check cultures/CXR start empiric antibiotics consult ID palliative care
[2016-08-27] MEDS: levETIRAcetam 500 MG/5 ML INJECTION VIAL IVPB SCH (23:51)
[2016-08-28] MEDS: AMINO ACIDS 4.25%/D5W 1,000 ML IV SCH ×2 (00:45→13:44)
[2016-08-28] MEDS: DEXAMETHASONE SOD PHOSPHATE 4 MG/1 ML VIAL IVPUSH SCH (01:37)
[2016-08-28] MEDS: morphine CARPU-JECT 2 MG/1 ML DISP.SYRIN IVPUSH PRN ×3 (02:04→18:12)
[2016-08-28] MEDS ORDERED: VANCOMYCIN 1 GRAM (PRE-DOCKED) 250 ML IVPB ONE (05:18)
[2016-08-28] MEDS: GABAPENTIN 100 MG CAPSULE (FP) PO SCH ×3 (06:06→21:52)
[2016-08-28] MEDS: traMADol HCL 50 MG TABLET PO PRN (06:18)
[2016-08-28 06:40] LABS: MCH 26.1 pg (25.7-33.7); MCHC 32.3 g/dl (32.0-36.0); MEAN CELL VOLUME 80.8 fl (80-96); MEAN PLT VOLUME 8.3 fl (7.5-11.1); PLATELET COUNT 406 K/MM3 (134-434); RDW 18.8 % (11.6-15.6)
[2016-08-28 06:54] LABS: WHITE BLOOD COUNT 47.8 K/mm3 (4.0-10.0)
[2016-08-28] MEDS ORDERED: PIPERACILLIN/TAZOB 4.5 GM 100 ML IVPB ONE (07:00)
[2016-08-28 07:05] LABS: ANION GAP 12 (8-16); BILIRUBIN,TOTAL 0.7 mg/dL (0.2-1.0); CALCIUM 9.3 mg/dL (8.5-10.1); CO2 24 mmol/L (21-32); CREATININE 0.6 mg/dL (0.55-1.02); GLUCOSE,RANDOM 131 mg/dL (74-106); SGOT/AST 15 U/L (15-37); SGPT/ALT 12 U/L (12-78); TOT PROT 6.1 g/dl (6.4-8.2)
[2016-08-28 07:06] LABS: ALK PHOS 72 U/L (45-117)
[2016-08-28 09:39] LABS: PLATELET ESTIMATE ADEQUATE (NORMAL)
[2016-08-28] MEDS: LOSARTAN POTASSIUM 25 MG TABLET PO SCH (10:00)
[2016-08-28] MEDS: PANTOPRAZOLE 40 MG TABLET (FP) PO SCH (10:00)
[2016-08-28] MEDS ORDERED: PIPERACILLIN/TAZOB 4.5 GM 4.5 GM in DEXTROSE 5%-WATER - 100 ML IVPB SCH (10:00)
[2016-08-28] MEDS: morphine SO4 SUSTAINED ACTING 15 MG TABLET.SA PO SCH ×2 (10:00→21:51)
[2016-08-28] MEDS: DEXAMETHASONE SOD PHOSPHATE 4 MG/1 ML VIAL IVPB SCH ×3 (10:00→21:43)
--- NOTE | 2016-08-28 10:28 | PN ---
Progress Note, Physician Chief Complaint: sleeping in bed able to arouse he she said her name to me then back to sleep open her eyes has no HCP i tried to talk to her about it but she is dorwsy and sleepy - Current Medication List Current Medications: Active Medications Acetaminophen (Tylenol -) 1,000 mg PO Q6H PRN PRN Reason: FEVER OR PAIN Last Admin: 08/26/16 14:33 Dose: 1,000 mg Aclidinium [place] (Tudorza -) 1 puff IH BID [facility] Last Admin: 08/27/16 21:36 Dose: Not Given Al Hydroxide/Mg Hydroxide (Mylanta Oral Suspension -) 30 ml PO BID PRN PRN Reason: INDIGESTION Last Admin: 08/21/16 22:13 Dose: 30 ml Atorvastatin Calcium (Lipitor -) 10 mg PO HS [facility] Last Admin: 08/27/16 21:35 Dose: 10 mg Dexamethasone Sodium Phosphate (Decadron Injection -) 4 mg IVPB Q6H-IV [facility] Diltiazem HCl (Cardizem Cd -) 120 mg PO DAILY [facility] Last Admin: 08/27/16 10:50 Dose: 120 mg Fentanyl (Duragesic 25mcg Patch -) 1 patch TD Q72H [facility] Last Admin: 08/27/16 19:05 Dose: 1 patch Gabapentin (Neurontin -) 100 mg PO TID [facility] Last Admin: 08/28/16 06:06 Dose: 100 mg Amino Acids (Clinimix -) 1,000 mls @ 42 mls/hr IV Q24H [facility] Last Admin: 08/28/16 00:45 Dose: 42 mls/hr Piperacillin Sod/Tazobactam (Sod 4.5 gm/ Dextrose) 100 mls @ 200 mls/hr IVPB Q8H-IV [facility] PRN Reason: Protocol Latanoprost (Xalatan 0.005% Eye Drops -) 1 drop OU HS [facility] Last Admin: 08/27/16 21:36 Dose: 1 drop Levetiracetam (Keppra Injection -) 250 mg IVPB BID [facility] Last Admin: 08/27/16 23:51 Dose: 250 mg Lidocaine (Lidoderm Patch -) 1 patch TP DAILY [facility] Last Admin: 08/27/16 10:50 Dose: 1 patch Losartan Potassium (Cozaar -) 50 mg PO DAILY [facility] Last Admin: 08/27/16 10:50 Dose: 50 mg Methyl Salicylate (Juan-Mayberry -) 1 applic TP BID PRN Last Admin: 08/26/16 10:43 Dose: 1 applic Miscellaneous (Duragesic Patch Waste) 1 each TD PRN PRN Morphine Sulfate (Ms Contin -) 15 mg PO BID [facility] Last Admin: 08/27/16 21:36 Dose: 15 mg Morphine Sulfate (Morphine Injection -) 2 mg IVPUSH Q6H PRN PRN Reason: PAIN Last Admin: 08/28/16 02:04 Dose: 2 mg Non-Formulary Medication (Fluticasone Propionate [Flovent Hfa]) 1 inh IH DAILY [facility] Ondansetron HCl (Zofran Injection) 8 mg IVPB Q12H PRN PRN Reason: NAUSEA Last Admin: 08/26/16 17:24 Dose: 8 mg Pantoprazole Sodium (Protonix -) 40 mg PO DAILY [facility] Last Admin: 08/27/16 10:52 Dose: 40 mg Timolol Maleate (Timoptic 0.25%) 1 drop OU DAILY [facility] Last Admin: 08/27/16 10:53 Dose: Not Given Tramadol HCl (Ultram -) 50 mg PO Q6H PRN PRN Reason: PAIN Last Admin: 08/28/16 06:18 Dose: 50 mg - Objective Vital Signs: Vital Signs Temperature 98.2 F 08/28/16 09:28 Pulse Rate 60 08/28/16 09:28 Respiratory Rate 16 08/28/16 09:28 Blood Pressure 119/68 08/28/16 09:28 O2 Sat by Pulse Oximetry (%) 92 L 08/27/16 21:00 Constitutional: Yes: Calm Cardiovascular: Yes: Regular Rate and Rhythm, S1, S2 Respiratory: Yes: Diminished (on right side) Gastrointestinal: Yes: Normal Bowel Sounds, Soft Edema: No Neurological: Yes: Weakness (LUE) Labs: CBC, BMP 08/28/16 05:55 08/28/16 05:55 INR, PTT INR 1.17 (0.82-1.09) H 08/17/16 18:44 Assessment/Plan LUE weakness brain mets radiation decadron lung cancer with mets to brain getting radiation steroids keppra for seizure ppx no KOSTA intervention because multifocal metastasis was spitting out oral meds pain control iv morphine PRN appreicate palliatve care note no HCP , patient currently not able to discuss her wishes i tried to converse with her will try again HTN stable glaucoma eye drops urine culture show E fecalis got vanco and zosyn dose will have ID follow up Microbiology 08/23/16 19:55 Urine - Urine Clean Catch Urine Culture - Final Enterococcus Faecalis
--- NOTE | 2016-08-28 10:31 | PN ---
Progress Note (short form) - Note Progress Note: Rad Onc WBRT @ 12Gy. Moving and uncooperative on table during RT yesterday. Does not answer questions or follow directions this AM. No voluntary movement of LUE/LLE. Clinically deteriorating despite steroids and WBRT. Consider repeat brain imaging to r/o interval bleed, increased edema/ hydrocephalus. Pulmonary f/u. Cont decadron 4q6h. Will cont WBRT for now but may need to hold if unable to cooperate on table.
[2016-08-28] MEDS: LIDOCAINE 5% TOPICAL PATCH TP SCH (10:33)
--- NOTE | 2016-08-28 10:38 | PN ---
Progress Note (short form) - Note Progress Note: Lethargic but arousable. Reports neck pain is better. Keeps repeating "God help us" when awake. Denies CP or SOB. Intake & Output 08/25/16 08/26/16 08/27/16 08/28/16 23:59 23:59 23:59 23:59 Intake Total 225 654 750 Output Total 1 Balance 224 654 750 Weight 115 lb 8 oz 115 lb 8 oz Last Vital Signs Temp Pulse Resp BP Pulse Ox 98.2 F 60 16 119/68 92 L 08/28/16 09:28 08/28/16 09:28 08/28/16 09:28 08/28/16 09:28 08/27/16 21:00 Active Medications Acetaminophen (Tylenol -) 1,000 mg PO Q6H PRN PRN Reason: FEVER OR PAIN Last Admin: 08/26/16 14:33 Dose: 1,000 mg Aclidinium [place] (Tudorza -) 1 puff IH BID [facility] Last Admin: 08/27/16 21:36 Dose: Not Given Al Hydroxide/Mg Hydroxide (Mylanta Oral Suspension -) 30 ml PO BID PRN PRN Reason: INDIGESTION Last Admin: 08/21/16 22:13 Dose: 30 ml Atorvastatin Calcium (Lipitor -) 10 mg PO HS [facility] Last Admin: 08/27/16 21:35 Dose: 10 mg Dexamethasone Sodium Phosphate (Decadron Injection -) 4 mg IVPB Q6H-IV [facility] Diltiazem HCl (Cardizem Cd -) 120 mg PO DAILY [facility] Last Admin: 08/27/16 10:50 Dose: 120 mg Fentanyl (Duragesic 25mcg Patch -) 1 patch TD Q72H [facility] Last Admin: 08/27/16 19:05 Dose: 1 patch Gabapentin (Neurontin -) 100 mg PO TID [facility] Last Admin: 08/28/16 06:06 Dose: 100 mg Amino Acids (Clinimix -) 1,000 mls @ 42 mls/hr IV Q24H [facility] Last Admin: 08/28/16 00:45 Dose: 42 mls/hr Sodium Chloride (Normal Saline -) 1,000 mls @ 50 mls/hr IV ASDIR [facility] Stop: 08/29/16 10:33 Latanoprost (Xalatan 0.005% Eye Drops -) 1 drop OU HS [facility] Last Admin: 08/27/16 21:36 Dose: 1 drop Levetiracetam (Keppra Injection -) 250 mg IVPB BID [facility] Last Admin: 08/27/16 23:51 Dose: 250 mg Lidocaine (Lidoderm Patch -) 1 patch TP DAILY [facility] Last Admin: 08/27/16 10:50 Dose: 1 patch Losartan Potassium (Cozaar -) 50 mg PO DAILY [facility] Last Admin: 08/27/16 10:50 Dose: 50 mg Methyl Salicylate (Juan-Mayberry -) 1 applic TP BID [facility] Last Admin: 08/26/16 10:43 Dose: 1 applic Miscellaneous (Duragesic Patch Waste) 1 each TD PRN PRN Morphine Sulfate (Ms Contin -) 15 mg PO BID [facility] Last Admin: 08/27/16 21:36 Dose: 15 mg Morphine Sulfate (Morphine Injection -) 1 mg IVPUSH Q6H PRN PRN Reason: PAIN Non-Formulary Medication (Fluticasone Propionate [Flovent Hfa]) 1 inh IH DAILY [facility] Ondansetron HCl (Zofran Injection) 8 mg IVPB Q12H PRN PRN Reason: NAUSEA Last Admin: 08/26/16 17:24 Dose: 8 mg Pantoprazole Sodium (Protonix -) 40 mg PO DAILY [facility] Last Admin: 08/27/16 10:52 Dose: 40 mg Timolol Maleate (Timoptic 0.25%) 1 drop OU DAILY [facility] Last Admin: 08/27/16 10:53 Dose: Not Given Constitutional: Yes: Lethargic but arousable Eyes: Yes: WNL HENT: Yes: WNL Neck: Yes: WNL Cardiovascular: Yes: Regular Rate and Rhythm, S1, S2 Respiratory: Yes: Diminished Gastrointestinal: Yes: WNL Extremities: Yes: WNL Edema: No Labs: Laboratory Results - last 24 hr 08/28/16 08/28/16 05:55 05:55 WBC 47.8 H* RBC 4.47 Hgb 11.7 Hct 36.1 MCV 80.8 MCHC 32.3 RDW 18.8 H Plt Count 406 MPV 8.3 Neutrophils % 90.0 H Lymphocytes % 1.0 L D Monocytes % 7.0 D Band Neutrophils 1.0 Myelocytes 1 D Differential Comment Manual diff done Platelet Estimate Adequate Sodium 134 L Potassium 4.3 Chloride 98 Carbon Dioxide 24 Anion Gap 12 BUN 51 H Creatinine 0.6 Creat Clearance w eGFR > 60 Random Glucose 131 H Calcium 9.3 Total Bilirubin 0.7 D AST 15 ALT 12 Alkaline Phosphatase 72 Total Protein 6.1 L Albumin 3.0 L Problem List - Problems (1) Brain metastases Code(s): C79.31 - SECONDARY MALIGNANT NEOPLASM OF BRAIN (2) Bull[place] of lung Code(s): J43.9 - EMPHYSEMA, UNSPECIFIED (3) COPD (chronic obstructive pulmonary disease) Code(s): J44.9 - CHRONIC OBSTRUCTIVE PULMONARY DISEASE, UNSPECIFIED (4) HTN (hypertension) Code(s): I10 - ESSENTIAL (PRIMARY) HYPERTENSION (5) Lung cancer Code(s): C34.90 - MALIGNANT NEOPLASM OF UNSP PART OF UNSP BRONCHUS OR LUNG Assessment/Plan NSCLC with Brain Mets COPD Bullous Lung Disease UTI HTN Neck pain - Due to overall poor prognosis would opt for comfort measures only - inhaled bronchodilators / Medrol - analgesics - RT - decadron - Check AM CXR - Need to discuss GOC with Dr Sherwood Problem List - Problems (1) Asthma Code(s): J45.909 - UNSPECIFIED ASTHMA, UNCOMPLICATED (2) COPD (chronic obstructive pulmonary disease) Code(s): J44.9 - CHRONIC OBSTRUCTIVE PULMONARY DISEASE, UNSPECIFIED (3) Falls Code(s): W19.XXXA - UNSPECIFIED FALL, INITIAL ENCOUNTER Qualifiers: Encounter type: initial encounter Qualified Code(s): W19.XXXA - Unspecified fall, initial encounter (4) HTN (hypertension) Code(s): I10 - ESSENTIAL (PRIMARY) HYPERTENSION (5) Lung cancer Code(s): C34.90 - MALIGNANT NEOPLASM OF UNSP PART OF UNSP BRONCHUS OR LUNG (6) Bulla of lung Code(s): J43.9 - EMPHYSEMA, UNSPECIFIED
--- NOTE | 2016-08-28 10:43 | PN ---
Progress Note (short form) - Note Progress Note: asked to f/u for rising WBC doing poorly WBRT not answering questions looks comfortable Vital Signs Period Temp Pulse Resp BP Sys/Menon Pulse Ox Last 24 Hr 97.9 F-98.4 F 60-94 16-20 113-141/68-86 92 won't open mouth cor-rrr lungs decreased bs on the right abd soft,nt, no distention, no palpable bladder ext no edema CBC, BMP 08/28/16 05:55 08/28/16 05:55 cultures pending cxray right lung opacification a/p metastatic lung cancer doing poorly on steroids with WBRT leukocytosis right lung opacification cultures pending continue zosyn doing poorly advanced directives
[2016-08-28] MEDS ORDERED: SODIUM CHLORIDE 1,000 ML IV SCH (10:45)
[2016-08-28] MEDS: levETIRAcetam 500 MG/5 ML INJECTION VIAL IVPB SCH ×2 (11:00→21:44)
--- NOTE | 2016-08-28 12:31 | PN ---
Progress Note (short form) - Note Progress Note: Renal Follow up for Hypercalcemia Pt seen and examined at the bedside very lethagic noted in the medical record that MS worsened over the weekend poor oral intake of food and water as per nurse on Clinimix Vital Signs Temperature 98.2 F 08/28/16 09:28 Pulse Rate 60 08/28/16 09:28 Respiratory Rate 16 08/28/16 09:28 Blood Pressure 119/68 08/28/16 09:28 O2 Sat by Pulse Oximetry (%) 92 L 08/27/16 21:00 Intake & Output 08/25/16 08/26/16 08/27/16 08/28/16 23:59 23:59 23:59 23:59 Intake Total 225 654 750 Output Total 1 Balance 224 654 750 Weight 115 lb 8 oz 115 lb 8 oz Gen: NAD, awake and alert CVS: RRR, No M/R Lungs: Dec BS left lung Abd: soft NT/ND Ext: No edema, clubbing or cyanosis. CBC, BMP 08/28/16 05:55 08/28/16 05:55 Current Medications Acetaminophen (Tylenol -) 1,000 mg PO Q6H PRN PRN Reason: FEVER OR PAIN Last Admin: 08/26/16 14:33 Dose: 1,000 mg Al Hydroxide/Mg Hydroxide (Mylanta Oral Suspension -) 30 ml PO BID PRN PRN Reason: INDIGESTION Last Admin: 08/21/16 22:13 Dose: 30 ml Albuterol Sulfate (Ventolin 0.083% Nebulizer Soln -) 1 amp NEB TIDR [facility] Atorvastatin Calcium (Lipitor -) 10 mg PO HS [facility] Last Admin: 08/27/16 21:35 Dose: 10 mg Dexamethasone Sodium Phosphate (Decadron Injection -) 4 mg IVPB Q6H-IV [facility] Diltiazem HCl (Cardizem Cd -) 120 mg PO DAILY [facility] Last Admin: 08/27/16 10:50 Dose: 120 mg Fentanyl (Duragesic 25mcg Patch -) 1 patch TD Q72H [facility] Last Admin: 08/27/16 19:05 Dose: 1 patch Gabapentin (Neurontin -) 100 mg PO TID [facility] Last Admin: 08/28/16 06:06 Dose: 100 mg Amino Acids (Clinimix -) 1,000 mls @ 42 mls/hr IV Q24H [facility] Last Admin: 08/28/16 00:45 Dose: 42 mls/hr Sodium Chloride (Normal Saline -) 1,000 mls @ 50 mls/hr IV ASDIR [facility] Stop: 08/29/16 10:33 Latanoprost (Xalatan 0.005% Eye Drops -) 1 drop OU HS [facility] Last Admin: 08/27/16 21:36 Dose: 1 drop Levetiracetam (Keppra Injection -) 250 mg IVPB BID [facility] Last Admin: 08/27/16 23:51 Dose: 250 mg Lidocaine (Lidoderm Patch -) 1 patch TP DAILY [facility] Last Admin: 08/28/16 10:33 Dose: 1 patch Losartan Potassium (Cozaar -) 50 mg PO DAILY [facility] Last Admin: 08/27/16 10:50 Dose: 50 mg Methyl Salicylate (Juan-Mayberry -) 1 applic TP BID [facility] Last Admin: 08/26/16 10:43 Dose: 1 applic Miscellaneous (Duragesic Patch Waste) 1 each TD PRN PRN Morphine Sulfate (Ms Contin -) 15 mg PO BID [facility] Last Admin: 08/27/16 21:36 Dose: 15 mg Morphine Sulfate (Morphine Injection -) 1 mg IVPUSH Q6H PRN PRN Reason: PAIN Ondansetron HCl (Zofran Injection) 8 mg IVPB Q12H PRN PRN Reason: NAUSEA Last Admin: 08/26/16 17:24 Dose: 8 mg Pantoprazole Sodium (Protonix -) 40 mg PO DAILY [facility] Last Admin: 08/27/16 10:52 Dose: 40 mg Piperacillin Sod/Tazobactam Sod (Zosyn 3.375gm Ivpb (Pre-Docked)) 3.375 gm IVPB Q8H-IV [facility] PRN Reason: Protocol Timolol Maleate (Timoptic 0.25%) 1 drop OU DAILY [facility] Last Admin: 08/27/16 10:53 Dose: Not Given A/P 71 year old woman with PMhx of Breast Ca s/p Chemo and hormonal therapy, Adenocarcinoma of the Lung currently on chemotherapy presented s/p mechanical fall at home and found to have Corrected CA of 10.8. #Hypercalcemia of Malignancy Corrected Ca is 10.2 today PTH suppressed continue IVF hydration #Hyponatremia from poor oral solute intake +/- ADH release trend Na for now #Lung Ca with Brain Mets Supportive Care Chemo as per Oncology Neurosurgery following for continued Radiation Tx on Steroids for brain mets #Hypertension Continue Losartan, Diltizem #Leukocytoiss Reactive vs. UTI vs. Steroids on Zosyn as per ID WBC elevated on presentation Pt with E.Coli UTI on presentation s/p Ceftriaxone x 2 Blood cultures w/o growth Vince Cole DO
[2016-08-28] MEDS: TIMOLOL 0.25% OPHTHALMIC SOL 5 ML BOTTLE OU SCH (12:47)
[2016-08-28] MEDS: FLUTICASONE PROPIONATE IH SCH (13:47)
[2016-08-28] MEDS: ACLIDINIUM BROMIDE 400 MCG/INH AERO.POWD IH SCH (13:47)
[2016-08-28 14:16] LABS: CALCIUM 9.3 mg/dL (8.7-10.3)
[2016-08-28] MEDS: ALBUTEROL SO4 0.083% IH SOL 2.5 MG/3 ML VIAL.NEB. NEB SCH ×2 (14:45→21:25)
--- NOTE | 2016-08-28 16:42 | PN ---
Progress Note (short form) - Note Progress Note: Patient seen and examined Answers some questions.Perseveration with Repetitive statements about multiplicity of problems. Last Vital Signs Temp Pulse Resp BP Pulse Ox 97.9 F 82 18 149/78 97 08/28/16 15:21 08/28/16 15:21 08/28/16 15:21 08/28/16 15:21 08/28/16 09:00 HEENT: SHELLEY, EOM Intact Oropharynx: thrush, No mucositis Neck: Supple Nodes: Without adenopathy Breasts: Without masses;Retraction right breast Cor: RSR, No murmurs, No gallops Lungs: Clear to P&A Abd: Soft, Normal bowel sounds, No organomegaly Ext:No significant edema Skin: No rashes, Integument intact LUE>LLE weakness CBC, BMP 08/28/16 05:55 08/28/16 05:55 Current Medications Generic Name Dose Route Start Last Admin Trade Name Freq PRN Reason Stop Dose Admin Acetaminophen 1,000 mg 08/23/16 15:26 08/26/16 14:33 Tylenol - PO 1,000 mg Q6H PRN Administration FEVER OR PAIN Al Hydroxide/Mg Hydroxide 30 ml 08/21/16 22:02 08/21/16 22:13 Mylanta Oral Suspension - PO 30 ml BID PRN Administration INDIGESTION Albuterol Sulfate 1 amp 08/28/16 14:00 08/28/16 14:45 Ventolin 0.083% Nebulizer Soln - NEB 1 amp TIDR [facility] Administration Atorvastatin Calcium 10 mg 08/17/16 22:00 08/27/16 21:35 Lipitor - PO 10 mg HS [facility] Administration Dexamethasone Sodium Phosphate 4 mg 08/28/16 09:00 08/28/16 15:00 Decadron Injection - IVPB 4 mg Q6H-IV [facility] Administration Diltiazem HCl 120 mg 08/18/16 10:00 08/28/16 10:00 Cardizem Cd - PO 120 mg DAILY [facility] Administration Fentanyl 1 patch 08/27/16 19:00 08/27/16 19:05 Duragesic 25mcg Patch - TD 1 patch Q72H [facility] Administration Gabapentin 100 mg 08/26/16 14:00 08/28/16 14:00 Neurontin - PO Not Given TID [facility] Amino Acids 1,000 mls @ 42 mls/hr 08/27/16 12:32 08/28/16 13:44 Clinimix - IV Not Given Q24H [facility] Sodium Chloride 1,000 mls @ 50 mls/hr 08/28/16 10:45 08/28/16 13:44 Normal Saline - IV 08/29/16 10:33 50 mls/hr ASDIR [facility] Administration Latanoprost 1 drop 08/17/16 22:00 08/27/16 21:36 Xalatan 0.005% Eye Drops - OU 1 drop HS [facility] Administration Levetiracetam 250 mg 08/27/16 23:45 08/28/16 11:00 Keppra Injection - IVPB 250 mg BID [facility] Administration Lidocaine 1 patch 08/25/16 17:00 08/28/16 10:33 Lidoderm Patch - TP 1 patch DAILY [facility] Administration Losartan Potassium 50 mg 08/18/16 10:00 08/28/16 10:00 Cozaar - PO 50 mg DAILY [facility] Administration Methyl Salicylate 1 applic 08/25/16 14:44 08/26/16 10:43 Juan-Mayberry - TP 1 applic BID PRN Administration Miscellaneous 1 each 08/27/16 18:53 Duragesic Patch Waste TD PRN PRN Morphine Sulfate 15 mg 08/26/16 10:00 08/28/16 10:00 Ms Contin - PO 15 mg BID [facility] Administration Morphine Sulfate 1 mg 08/28/16 10:27 Morphine Injection - IVPUSH Q6H PRN [facility]IN Ondansetron HCl 8 mg 08/24/16 07:38 08/26/16 17:24 Zofran Injection IVPB 8 mg Q12H PRN Administration NAUSEA Pantoprazole Sodium 40 mg 08/22/16 10:00 08/28/16 10:00 Protonix - PO 40 mg DAILY [facility] Administration Piperacillin Sod/Tazobactam Sod 3.375 gm 08/28/16 18:00 Zosyn 3.375gm Ivpb (Pre-Docked) IVPB Q8H-IV [facility] Protocol Timolol Maleate 1 drop 08/18/16 10:00 08/28/16 12:47 Timoptic 0.25% OU Not Given DAILY [facility] Impression: Lung ca with right upper lobe opacification --on zosyn [employer] mets on RT [place] To continue current therapy.
[2016-08-28] MEDS: PIPERACILLIN/TAZOB 3.375 GM/50 ML PRE-DOCKED IVPB SCH (18:02)
[2016-08-28] MEDS: ATORVASTATIN CA 10 MG TABLET (FP) PO SCH (21:52)
[2016-08-28] MEDS: LATANOPROST 0.005% OPHTH SOLN 2.5ML BOTTLE OU SCH (21:52)
[2016-08-29] MEDS: PIPERACILLIN/TAZOB 3.375 GM/50 ML PRE-DOCKED IVPB SCH ×3 (01:39→17:18)
[2016-08-29] MEDS: AMINO ACIDS 4.25%/D5W 1,000 ML IV SCH ×2 (01:39→13:00)
[2016-08-29] MEDS: DEXAMETHASONE SOD PHOSPHATE 4 MG/1 ML VIAL IVPB SCH ×4 (03:00→21:18)
[2016-08-29] MEDS: GABAPENTIN 100 MG CAPSULE (FP) PO SCH ×3 (06:16→21:41)
[2016-08-29] MEDS: ALBUTEROL SO4 0.083% IH SOL 2.5 MG/3 ML VIAL.NEB. NEB SCH ×3 (06:50→22:18)
[2016-08-29 06:55] LABS: MCH 26.4 pg (25.7-33.7); MCHC 32.4 g/dl (32.0-36.0); MEAN CELL VOLUME 81.6 fl (80-96); PLATELET COUNT 285 K/MM3 (134-434); RDW 18.9 % (11.6-15.6)
[2016-08-29 07:18] LABS: ALBUMIN 2.8 g/dl (3.4-5.0); ANION GAP 11 (8-16); BILIRUBIN,TOTAL 0.8 mg/dL (0.2-1.0); CALCIUM 9.1 mg/dL (8.5-10.1); CO2 23 mmol/L (21-32); CREATININE 0.6 mg/dL (0.55-1.02); GLUCOSE,RANDOM 124 mg/dL (74-106); SGOT/AST 15 U/L (15-37); SGPT/ALT 14 U/L (12-78); TOT PROT 5.9 g/dl (6.4-8.2)
[2016-08-29 07:19] LABS: ALK PHOS 71 U/L (45-117)
[2016-08-29 07:33] LABS: WHITE BLOOD COUNT 43.1 K/mm3 (4.0-10.0)
[2016-08-29] MEDS: morphine CARPU-JECT 2 MG/1 ML DISP.SYRIN IVPUSH PRN ×2 (08:30→18:09)
--- NOTE | 2016-08-29 08:35 | PN ---
Progress Note, Physician History of Present Illness: CONFUSED - Current Medication List Current Medications: Active Medications Acetaminophen (Tylenol -) 1,000 mg PO Q6H PRN PRN Reason: FEVER OR PAIN Last Admin: 08/26/16 14:33 Dose: 1,000 mg Al Hydroxide/Mg Hydroxide (Mylanta Oral Suspension -) 30 ml PO BID PRN PRN Reason: INDIGESTION Last Admin: 08/21/16 22:13 Dose: 30 ml Albuterol Sulfate (Ventolin 0.083% Nebulizer Soln -) 1 amp NEB TIDR [facility] Last Admin: 08/29/16 06:50 Dose: 1 amp Atorvastatin Calcium (Lipitor -) 10 mg PO HS [facility] Last Admin: 08/28/16 21:52 Dose: Not Given Dexamethasone Sodium Phosphate (Decadron Injection -) 4 mg IVPB Q6H-IV [facility] Last Admin: 08/29/16 03:00 Dose: 4 mg Diltiazem HCl (Cardizem Cd -) 120 mg PO DAILY [facility] Last Admin: 08/28/16 10:00 Dose: 120 mg Fentanyl (Duragesic 25mcg Patch -) 1 patch TD Q72H [facility] Last Admin: 08/27/16 19:05 Dose: 1 patch Gabapentin (Neurontin -) 100 mg PO TID [facility] Last Admin: 08/29/16 06:16 Dose: Not Given Amino Acids (Clinimix -) 1,000 mls @ 42 mls/hr IV Q24H [facility] Last Admin: 08/29/16 01:39 Dose: 42 mls/hr Sodium Chloride (Normal Saline -) 1,000 mls @ 50 mls/hr IV ASDIR [facility] Stop: 08/29/16 10:33 Last Admin: 08/28/16 13:44 Dose: 50 mls/hr Latanoprost (Xalatan 0.005% Eye Drops -) 1 drop OU HS [facility] Last Admin: 08/28/16 21:52 Dose: 1 drop Levetiracetam (Keppra Injection -) 250 mg IVPB BID [facility] Last Admin: 08/28/16 21:44 Dose: 250 mg Lidocaine (Lidoderm Patch -) 1 patch TP DAILY [facility] Last Admin: 08/28/16 10:33 Dose: 1 patch Losartan Potassium (Cozaar -) 50 mg PO DAILY [facility] Last Admin: 08/28/16 10:00 Dose: 50 mg Methyl Salicylate (Juan-Mayberry -) 1 applic TP BID PRN Last Admin: 08/26/16 10:43 Dose: 1 applic Miscellaneous (Duragesic Patch Waste) 1 each TD PRN PRN Morphine Sulfate (Ms Contin -) 15 mg PO BID [facility] Last Admin: 08/28/16 21:51 Dose: Not Given Morphine Sulfate (Morphine Injection -) 1 mg IVPUSH Q6H PRN PRN Reason: PAIN Last Admin: 08/29/16 08:30 Dose: 1 mg Ondansetron HCl (Zofran Injection) 8 mg IVPB Q12H PRN PRN Reason: NAUSEA Last Admin: 08/26/16 17:24 Dose: 8 mg Pantoprazole Sodium (Protonix -) 40 mg PO DAILY [facility] Last Admin: 08/28/16 10:00 Dose: 40 mg Piperacillin Sod/Tazobactam Sod (Zosyn 3.375gm Ivpb (Pre-Docked)) 3.375 gm IVPB Q8H-IV [facility] PRN Reason: Protocol Last Admin: 08/29/16 01:39 Dose: 3.375 gm Timolol Maleate (Timoptic 0.25%) 1 drop OU DAILY [facility] Last Admin: 08/28/16 12:47 Dose: Not Given - Objective Vital Signs: Vital Signs Temperature 98 F 08/29/16 05:33 Pulse Rate 86 08/29/16 05:33 Respiratory Rate 18 08/29/16 05:33 Blood Pressure 127/77 08/29/16 05:33 O2 Sat by Pulse Oximetry (%) 94 L 08/28/16 21:00 Cardiovascular: Yes: S1, S2 Respiratory: Yes: Regular, CTA Bilaterally Gastrointestinal: Yes: Normal Bowel Sounds, Soft Neurological: Yes: Confusion, Lethargy Labs: CBC, BMP 08/29/16 06:00 08/29/16 06:00 INR, PTT INR 1.17 (0.82-1.09) H 08/17/16 18:44 Assessment/Plan 71-year-old female presents to the emergency department via EMS without any complaints at this time. Patient states she slipped out of her slippers earlier when getting up from her couch and almost fell to the ground. She called EMS and signed an AMA. This evening, she tried to go to the bathroom but her slippers slid while walking on the carpet and she eased herself onto the floor. Patient denies any headache, dizziness, lightheadedness, visual disturbance, neck pain, back pain, chest pain, shortness of breath, abdominal pains, extremity numbness or tingling sensation. (1) Falls Code(s): W19.XXXA - UNSPECIFIED FALL, INITIAL ENCOUNTER Qualifiers: Encounter type: initial encounter Qualified Code(s): W19.XXXA - Unspecified fall, initial encounter LIKELY MECHANICAL PT CONSULTED (2) Lung cancer Code(s): C34.90 - MALIGNANT NEOPLASM OF UNSP PART OF UNSP BRONCHUS OR LUNG CXr -> KNOWN R MASS. R/O R PTX -> PULM HYPERCa++ RESOLVED HOME Ca STOPPED RENAL CONSULT NOTED -> F/U W/U SQ HEPARIN -> CONSIDER LOVENOX FOR VTE Px (3) Leukocytosis PROBABLY DUE TO STEROIDS MONITOR AFEBRILE (4) MENTAL STATUS CHANGE--WORSENING WILL D/W FAMILY RT (5) COPD (chronic obstructive pulmonary disease) Code(s): J44.9 - CHRONIC OBSTRUCTIVE PULMONARY DISEASE, UNSPECIFIED (6) HTN (hypertension) Code(s): I10 - ESSENTIAL (PRIMARY) HYPERTENSION ACCEPTABLE CONTROL MONITOR (7) Left arm weakness Code(s): M62.81 - MUSCLE WEAKNESS (GENERALIZED) NEW DENY HEAD TRAUMA CTB AND MRI SHOWS BRAIN METS (2016 MRI BRAIN NEG) -> NEURO/ONCO/NEUROSURG ON CASE IV STEROIDS ON RT
[2016-08-29] MEDS ORDERED: METOPROLOL TARTRATE 5 MG/5 ML VIAL IVPUSH PRN (10:31)
[2016-08-29] MEDS: LORAZEPAM CARPU-JECT 2 MG/ML DISP.SYRIN IM PRN ×2 (10:52→21:16)
[2016-08-29 11:39] LABS: METAMYELOCYTE 1 % (0-2); PLATELET ESTIMATE ADEQUATE (NORMAL)
[2016-08-29] MEDS: levETIRAcetam 500 MG/5 ML INJECTION VIAL IVPB SCH ×2 (12:58→22:13)
[2016-08-29] MEDS: LOSARTAN POTASSIUM 25 MG TABLET PO SCH (12:59)
[2016-08-29] MEDS: PANTOPRAZOLE 40 MG TABLET (FP) PO SCH (12:59)
[2016-08-29] MEDS: LIDOCAINE 5% TOPICAL PATCH TP SCH (12:59)
[2016-08-29] MEDS: morphine SO4 SUSTAINED ACTING 15 MG TABLET.SA PO SCH ×2 (12:59→21:41)
[2016-08-29] MEDS: TIMOLOL 0.25% OPHTHALMIC SOL 5 ML BOTTLE OU SCH (13:00)
--- NOTE | 2016-08-29 13:38 | PN ---
Progress Note (short form) - Note Progress Note: Renal Follow up for Hypercalcemia Pt seen and examined at the bedside very lethargic, not arouseable, s/p ativan pt with agitation as per nursing staff Vital Signs Temperature 98.2 F 08/29/16 13:29 Pulse Rate 89 08/29/16 13:29 Respiratory Rate 18 08/29/16 13:29 Blood Pressure 130/76 08/29/16 13:29 O2 Sat by Pulse Oximetry (%) 94 L 08/28/16 21:00 Intake & Output 08/26/16 08/27/16 08/28/16 08/29/16 23:59 23:59 23:59 23:59 Intake Total 654 1300 962 Balance 654 1300 962 Weight 115 lb 8 oz 115 lb 8 oz 116 lb 8 oz Gen: NAD, awake and alert CVS: RRR, No M/R Lungs: Dec BS left lung Abd: soft NT/ND Ext: No edema, clubbing or cyanosis. CBC, BMP 08/29/16 06:00 08/29/16 06:00 Current Medications Acetaminophen (Tylenol -) 1,000 mg PO Q6H PRN PRN Reason: FEVER OR PAIN Last Admin: 08/26/16 14:33 Dose: 1,000 mg Al Hydroxide/Mg Hydroxide (Mylanta Oral Suspension -) 30 ml PO BID PRN PRN Reason: INDIGESTION Last Admin: 08/21/16 22:13 Dose: 30 ml Albuterol Sulfate (Ventolin 0.083% Nebulizer Soln -) 1 amp NEB TIDR [facility] Last Admin: 08/29/16 06:50 Dose: 1 amp Atorvastatin Calcium (Lipitor -) 10 mg PO HS [facility] Last Admin: 08/28/16 21:52 Dose: Not Given Dexamethasone Sodium Phosphate (Decadron Injection -) 4 mg IVPB Q6H-IV [facility] Last Admin: 08/29/16 12:58 Dose: 4 mg Diltiazem HCl (Cardizem Cd -) 120 mg PO DAILY [facility] Last Admin: 08/29/16 12:59 Dose: Not Given Fentanyl (Duragesic 25mcg Patch -) 1 patch TD Q72H [facility] Last Admin: 08/27/16 19:05 Dose: 1 patch Gabapentin (Neurontin -) 100 mg PO TID [facility] Last Admin: 08/29/16 06:16 Dose: Not Given Amino Acids (Clinimix -) 1,000 mls @ 42 mls/hr IV Q24H [facility] Last Admin: 08/29/16 13:00 Dose: Not Given Latanoprost (Xalatan 0.005% Eye Drops -) 1 drop OU HS [facility] Last Admin: 08/28/16 21:52 Dose: 1 drop Levetiracetam (Keppra Injection -) 250 mg IVPB BID [facility] Last Admin: 08/29/16 12:58 Dose: 250 mg Lidocaine (Lidoderm Patch -) 1 patch TP DAILY [facility] Last Admin: 08/29/16 12:59 Dose: 1 patch Lorazepam (Ativan Injection -) 0.5 mg IM Q6H PRN PRN Reason: ANXIETY Last Admin: 08/29/16 10:52 Dose: 0.5 mg Losartan Potassium (Cozaar -) 50 mg PO DAILY [facility] Last Admin: 08/29/16 12:59 Dose: Not Given Methyl Salicylate (Juan-Mayberry -) 1 applic TP BID PRN Last Admin: 08/26/16 10:43 Dose: 1 applic Metoprolol Tartrate (Lopressor Injection -) 5 mg IVPUSH Q4H PRN PRN Reason: HYPERTENSION Miscellaneous (Duragesic Patch Waste) 1 each TD PRN PRN Morphine Sulfate (Ms Contin -) 15 mg PO BID [facility] Last Admin: 08/29/16 12:59 Dose: Not Given Morphine Sulfate (Morphine Injection -) 1 mg IVPUSH Q6H PRN PRN Reason: PAIN Last Admin: 08/29/16 08:30 Dose: 1 mg Ondansetron HCl (Zofran Injection) 8 mg IVPB Q12H PRN PRN Reason: NAUSEA Last Admin: 08/26/16 17:24 Dose: 8 mg Pantoprazole Sodium (Protonix -) 40 mg PO DAILY [facility] Last Admin: 08/29/16 12:59 Dose: Not Given Piperacillin Sod/Tazobactam Sod (Zosyn 3.375gm Ivpb (Pre-Docked)) 3.375 gm IVPB Q8H-IV [facility] PRN Reason: Protocol Last Admin: 08/29/16 13:00 Dose: 3.375 gm Timolol Maleate (Timoptic 0.25%) 1 drop OU DAILY [facility] Last Admin: 08/29/16 13:00 Dose: Not Given A/P 71 year old woman with PMhx of Breast Ca s/p Chemo and hormonal therapy, Adenocarcinoma of the Lung currently on chemotherapy presented s/p mechanical fall at home and found to have Corrected CA of 10.8. #Hypercalcemia of Malignancy Corrected Ca is 10.1 today PTH suppressed #Increased lethargy from radiation Tx or from metastatic disease itself supportive care #Hyponatremia from poor oral solute intake +/- ADH release trend Na for now continue clinimix but hold additional IVF #Lung Ca with Brain Mets Supportive Care Chemo as per Oncology Neurosurgery following for continued Radiation Tx on Steroids for brain mets #Hypertension Continue Losartan, Diltizem #Leukocytoiss Reactive vs. UTI vs. Steroids on Zosyn as per ID WBC elevated on presentation Vince Cole DO
--- NOTE | 2016-08-29 16:20 | PN ---
Progress Note (short form) - Note Progress Note: Rad Onc WBRT @ 18Gy. Vomited during transit to RT this AM. Stable on arrival and tx was given. Mental status remains poor. No clinical improvement on WBRT/steroids thus far. Consider repeat brain imaging to r/o interval bleed, increased edema/ hydrocephalus. Cont decadron 4q6h. Will cont RT for now but need to discuss goals of care with family/HCP. Palliative care/hospice is appropriate.
--- NOTE | 2016-08-29 20:42 | PN ---
Progress Note (short form) - Note Progress Note: Patient seen and examined LUE weakness, confused, moaning Last Vital Signs Temp Pulse Resp BP Pulse Ox 98.0 F 85 18 122/68 96 08/29/16 18:33 08/29/16 18:33 08/29/16 18:33 08/29/16 18:33 08/29/16 09:00 HEENT: SHELLEY, EOM Intact Cor: RSR, No murmurs, No gallops Lungs: Clear to P&A Abd: Soft, Normal bowel sounds, No organomegaly Ext:LUE weakness- Abnormal Lab Results 08/29/16 08/29/16 06:00 06:00 WBC 43.1 H* RDW 18.9 H Neutrophils % 88.0 H Sodium 133 L BUN 38 H D Random Glucose 124 H Total Protein 5.9 L Albumin 2.8 L Current Medications Acetaminophen (Tylenol -) 1,000 mg PO Q6H PRN PRN Reason: FEVER OR PAIN Last Admin: 08/26/16 14:33 Dose: 1,000 mg Al Hydroxide/Mg Hydroxide (Mylanta Oral Suspension -) 30 ml PO BID PRN PRN Reason: INDIGESTION Last Admin: 08/21/16 22:13 Dose: 30 ml Albuterol Sulfate (Ventolin 0.083% Nebulizer Soln -) 1 amp NEB TIDR [facility] Last Admin: 08/29/16 13:40 Dose: 1 amp Atorvastatin Calcium (Lipitor -) 10 mg PO HS [facility] Last Admin: 08/28/16 21:52 Dose: Not Given Dexamethasone Sodium Phosphate (Decadron Injection -) 4 mg IVPB Q6H-IV [facility] Last Admin: 08/29/16 17:18 Dose: 4 mg Diltiazem HCl (Cardizem Cd -) 120 mg PO DAILY [facility] Last Admin: 08/29/16 12:59 Dose: Not Given Fentanyl (Duragesic 25mcg Patch -) 1 patch TD Q72H [facility] Last Admin: 08/27/16 19:05 Dose: 1 patch Gabapentin (Neurontin -) 100 mg PO TID [facility] Last Admin: 08/29/16 16:09 Dose: Not Given Amino Acids (Clinimix -) 1,000 mls @ 42 mls/hr IV Q24H [facility] Last Admin: 08/29/16 13:00 Dose: Not Given Latanoprost (Xalatan 0.005% Eye Drops -) 1 drop OU HS [facility] Last Admin: 08/28/16 21:52 Dose: 1 drop Levetiracetam (Keppra Injection -) 250 mg IVPB BID [facility] Last Admin: 08/29/16 12:58 Dose: 250 mg Lidocaine (Lidoderm Patch -) 1 patch TP DAILY [facility] Last Admin: 08/29/16 12:59 Dose: 1 patch Lorazepam (Ativan Injection -) 0.5 mg IM Q6H PRN PRN Reason: ANXIETY Last Admin: 08/29/16 10:52 Dose: 0.5 mg Losartan Potassium (Cozaar -) 50 mg PO DAILY [facility] Last Admin: 08/29/16 12:59 Dose: Not Given Methyl Salicylate (Juan-Mayberry -) 1 applic TP BID [facility]N Last Admin: 08/26/16 10:43 Dose: 1 applic Metoprolol Tartrate (Lopressor Injection -) 5 mg IVPUSH Q4H PRN PRN Reason: HYPERTENSION Miscellaneous (Duragesic Patch Waste) 1 each TD PRN PRN Morphine Sulfate (Ms Contin -) 15 mg PO BID [facility] Last Admin: 08/29/16 12:59 Dose: Not Given Morphine Sulfate (Morphine Injection -) 1 mg IVPUSH Q6H PRN PRN Reason: PAIN Last Admin: 08/29/16 18:09 Dose: 1 mg Ondansetron HCl (Zofran Injection) 8 mg IVPB Q12H PRN PRN Reason: NAUSEA Last Admin: 08/26/16 17:24 Dose: 8 mg Pantoprazole Sodium (Protonix -) 40 mg PO DAILY [facility] Last Admin: 08/29/16 12:59 Dose: Not Given Piperacillin Sod/Tazobactam Sod (Zosyn 3.375gm Ivpb (Pre-Docked)) 3.375 gm IVPB Q8H-IV [facility] PRN Reason: Protocol Last Admin: 08/29/16 17:18 Dose: 3.375 gm Timolol Maleate (Timoptic 0.25%) 1 drop OU DAILY [facility] Last Admin: 08/29/16 13:00 Dose: Not Given a/p 71 y/o female with lung cancer, on opdivo, now with lue weakness, falls, multiple brain mets on ct scan 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 On decadron 4mg Q 6h Getting WBRT ongoing discussions regarding goals of care
[2016-08-29] MEDS: ATORVASTATIN CA 10 MG TABLET (FP) PO SCH (21:41)
[2016-08-29] MEDS: LATANOPROST 0.005% OPHTH SOLN 2.5ML BOTTLE OU SCH (22:14)
[2016-08-30] MEDS: PIPERACILLIN/TAZOB 3.375 GM/50 ML PRE-DOCKED IVPB SCH ×3 (02:48→18:10)
[2016-08-30] MEDS: morphine CARPU-JECT 2 MG/1 ML DISP.SYRIN IVPUSH PRN ×2 (03:34→10:46)
[2016-08-30] MEDS: DEXAMETHASONE SOD PHOSPHATE 4 MG/1 ML VIAL IVPB SCH ×4 (04:13→22:22)
[2016-08-30] MEDS: GABAPENTIN 100 MG CAPSULE (FP) PO SCH ×3 (06:33→22:23)
[2016-08-30] MEDS: ALBUTEROL SO4 0.083% IH SOL 2.5 MG/3 ML VIAL.NEB. NEB SCH ×3 (06:35→22:40)
[2016-08-30] MEDS: LORAZEPAM CARPU-JECT 2 MG/ML DISP.SYRIN IM PRN ×2 (06:38→15:18)
[2016-08-30 08:22] LABS: MCH 26.4 pg (25.7-33.7); MCHC 32.1 g/dl (32.0-36.0); MEAN CELL VOLUME 82.2 fl (80-96); MEAN PLT VOLUME 8.9 fl (7.5-11.1); PLATELET COUNT 301 K/MM3 (134-434)
[2016-08-30 08:28] LABS: WHITE BLOOD COUNT 53.2 K/mm3 (4.0-10.0)
[2016-08-30 08:47] LABS: CALCIUM 8.6 mg/dL (8.5-10.1); CREATININE 0.4 mg/dL (0.55-1.02); MAGNESIUM 1.5 mg/dL (1.8-2.4); PHOSPHOROUS 1.5 mg/dL (2.5-4.9)
[2016-08-30] MEDS: levETIRAcetam 500 MG/5 ML INJECTION VIAL IVPB SCH ×2 (09:05→22:22)
[2016-08-30] MEDS: LIDOCAINE 5% TOPICAL PATCH TP SCH (09:05)
[2016-08-30] MEDS: morphine SO4 SUSTAINED ACTING 15 MG TABLET.SA PO SCH (09:05)
[2016-08-30] MEDS: LOSARTAN POTASSIUM 25 MG TABLET PO SCH (09:05)
[2016-08-30] MEDS: PANTOPRAZOLE 40 MG TABLET (FP) PO SCH (09:05)
[2016-08-30] MEDS: TIMOLOL 0.25% OPHTHALMIC SOL 5 ML BOTTLE OU SCH (09:05)
[2016-08-30 09:31] LABS: METAMYELOCYTE 1 % (0-2); PLATELET ESTIMATE ADEQUATE (NORMAL)
[2016-08-30] MEDS ORDERED: MAGNESIUM SULF 50% (8.12 MEQ/2 ML-1 GM VIAL) IVPB ONE ×2 (10:08→13:30)
[2016-08-30] MEDS ORDERED: POTASSIUM PHOSPHATE 30 MM in DEXTROSE 5%-WATER - 250 ML IVPB ONE (10:09)
--- NOTE | 2016-08-30 10:41 | PN ---
Progress Note (short form) - Note Progress Note: Lethargic. No clinical improvement, but she does not appear distressed or in pain. Intake & Output 08/27/16 08/28/16 08/29/16 08/30/16 23:59 23:59 23:59 23:59 Intake Total 654 1300 1012 478 Balance 654 1300 1012 478 Weight 115 lb 8 oz 115 lb 8 oz 116 lb 8 oz 116 lb 3.2 oz Last Vital Signs Temp Pulse Resp BP Pulse Ox 98.2 F 91 H 18 149/78 94 L 08/30/16 09:10 08/30/16 09:10 08/30/16 09:10 08/30/16 09:10 08/29/16 21:00 Active Medications Acetaminophen (Tylenol -) 1,000 mg PO Q6H PRN PRN Reason: FEVER OR PAIN Last Admin: 08/26/16 14:33 Dose: 1,000 mg Al Hydroxide/Mg Hydroxide (Mylanta Oral Suspension -) 30 ml PO BID PRN PRN Reason: INDIGESTION Last Admin: 08/21/16 22:13 Dose: 30 ml Albuterol Sulfate (Ventolin 0.083% Nebulizer Soln -) 1 amp NEB TIDR [facility] Last Admin: 08/30/16 06:35 Dose: 1 amp Atorvastatin Calcium (Lipitor -) 10 mg PO HS [facility] Last Admin: 08/29/16 21:41 Dose: Not Given Dexamethasone Sodium Phosphate (Decadron Injection -) 4 mg IVPB Q6H-IV [facility] Last Admin: 08/30/16 08:58 Dose: 4 mg Diltiazem HCl (Cardizem Cd -) 120 mg PO DAILY [facility] Last Admin: 08/30/16 09:05 Dose: Not Given Fentanyl (Duragesic 25mcg Patch -) 1 patch TD Q72H [facility] Last Admin: 08/27/16 19:05 Dose: 1 patch Gabapentin (Neurontin -) 100 mg PO TID [facility] Last Admin: 08/30/16 06:33 Dose: Not Given Amino Acids (Clinimix -) 1,000 mls @ 42 mls/hr IV Q24H [facility] Last Admin: 08/29/16 13:00 Dose: Not Given Potassium Phosphate 30 mm/ (Dextrose) 260 mls @ 65 mls/hr IVPB ONCE ONE PRN Reason: 30 MM/4 HR Stop: 08/30/16 14:08 Latanoprost (Xalatan 0.005% Eye Drops -) 1 drop OU HS [facility] Last Admin: 08/29/16 22:14 Dose: 1 drop Levetiracetam (Keppra Injection -) 250 mg IVPB BID [facility] Last Admin: 08/30/16 09:05 Dose: 250 mg Lidocaine (Lidoderm Patch -) 1 patch TP DAILY [facility] Last Admin: 08/30/16 09:05 Dose: 1 patch Lorazepam (Ativan Injection -) 0.5 mg IM Q6H PRN PRN Reason: ANXIETY Last Admin: 08/30/16 06:38 Dose: 0.5 mg Losartan Potassium (Cozaar -) 50 mg PO DAILY [facility] Last Admin: 08/30/16 09:05 Dose: Not Given Methyl Salicylate (Juan-Mayberry -) 1 applic TP BID [facility] Last Admin: 08/26/16 10:43 Dose: 1 applic Metoprolol Tartrate (Lopressor Injection -) 5 mg IVPUSH Q4H PRN PRN Reason: HYPERTENSION Miscellaneous (Duragesic Patch Waste) 1 each TD PRN PRN Morphine Sulfate (Ms Contin -) 15 mg PO BID [facility] Last Admin: 08/30/16 09:05 Dose: Not Given Morphine Sulfate (Morphine Injection -) 1 mg IVPUSH Q6H PRN PRN Reason: PAIN Last Admin: 08/30/16 03:34 Dose: 1 mg Ondansetron HCl (Zofran Injection) 8 mg IVPB Q12H PRN PRN Reason: NAUSEA Last Admin: 08/26/16 17:24 Dose: 8 mg Pantoprazole Sodium (Protonix -) 40 mg PO DAILY [facility] Last Admin: 08/30/16 09:05 Dose: Not Given Piperacillin Sod/Tazobactam Sod (Zosyn 3.375gm Ivpb (Pre-Docked)) 3.375 gm IVPB Q8H-IV [facility] PRN Reason: Protocol Last Admin: 08/30/16 09:06 Dose: 3.375 gm Timolol Maleate (Timoptic 0.25%) 1 drop OU DAILY [facility] Last Admin: 08/30/16 09:05 Dose: Not Given Constitutional: Yes: Lethargic Eyes: Yes: WNL HENT: Yes: WNL Neck: Yes: WNL Cardiovascular: Yes: Regular Rate and Rhythm, S1, S2 Respiratory: Yes: Diminished Gastrointestinal: Yes: WNL Extremities: Yes: WNL Edema: No Labs: Laboratory Results - last 24 hr 08/29/16 08/30/16 08/30/16 06:00 06:45 06:45 WBC 53.2 H* RBC 3.95 Hgb 10.4 L Hct 32.5 MCV 82.2 MCHC 32.1 RDW 19.0 H Plt Count 301 MPV 8.9 D Neutrophils % 88.0 H 84.0 H Lymphocytes % 1.0 L Monocytes % 7.0 6.0 Band Neutrophils 2.0 D 2.0 Metamyelocytes 1 D 1 Myelocytes 2 D Differential Comment Manual diff done Manual diff done Platelet Estimate Adequate Adequate Sodium 133 L Potassium 3.4 L Chloride 98 Carbon Dioxide 21 Anion Gap 14 BUN 29 H D Creatinine 0.4 L D Random Glucose 92 D Calcium 8.6 Phosphorus 1.5 L D Magnesium 1.5 L D Problem List - Problems (1) Brain metastases Code(s): C79.31 - SECONDARY MALIGNANT NEOPLASM OF BRAIN (2) Bulla of lung Code(s): J43.9 - EMPHYSEMA, UNSPECIFIED (3) COPD (chronic obstructive pulmonary disease) Code(s): J44.9 - CHRONIC OBSTRUCTIVE PULMONARY DISEASE, UNSPECIFIED (4) HTN (hypertension) Code(s): I10 - ESSENTIAL (PRIMARY) HYPERTENSION (5) Lung cancer Code(s): C34.90 - MALIGNANT NEOPLASM OF UNSP PART OF UNSP BRONCHUS OR LUNG Assessment/Plan NSCLC with Brain Mets COPD Bullous Lung Disease UTI HTN Neck pain Right Atelectasis due to tumor burden - Due to overall poor prognosis would opt for comfort measures only - inhaled bronchodilators / Medrol - analgesics - RT - decadron - Noted for family meeting tomorrow Dr Sherwood Problem List - Problems (1) Asthma Code(s): J45.909 - UNSPECIFIED ASTHMA, UNCOMPLICATED (2) COPD (chronic obstructive pulmonary disease) Code(s): J44.9 - CHRONIC OBSTRUCTIVE PULMONARY DISEASE, UNSPECIFIED (3) Falls Code(s): W19.XXXA - UNSPECIFIED FALL, INITIAL ENCOUNTER Qualifiers: Encounter type: initial encounter Qualified Code(s): W19.XXXA - Unspecified fall, initial encounter (4) HTN (hypertension) Code(s): I10 - ESSENTIAL (PRIMARY) HYPERTENSION (5) Lung cancer Code(s): C34.90 - MALIGNANT NEOPLASM OF UNSP PART OF UNSP BRONCHUS OR LUNG (6) Bulla of lung Code(s): J43.9 - EMPHYSEMA, UNSPECIFIED
--- NOTE | 2016-08-30 10:52 | PN ---
Progress Note, Physician Chief Complaint: lethargic in bed no pain - Current Medication List Current Medications: Active Medications Acetaminophen (Tylenol -) 1,000 mg PO Q6H PRN PRN Reason: FEVER OR PAIN Last Admin: 08/26/16 14:33 Dose: 1,000 mg Al Hydroxide/Mg Hydroxide (Mylanta Oral Suspension -) 30 ml PO BID PRN PRN Reason: INDIGESTION Last Admin: 08/21/16 22:13 Dose: 30 ml Albuterol Sulfate (Ventolin 0.083% Nebulizer Soln -) 1 amp NEB TIDR [facility] Last Admin: 08/30/16 06:35 Dose: 1 amp Atorvastatin Calcium (Lipitor -) 10 mg PO HS [facility] Last Admin: 08/29/16 21:41 Dose: Not Given Dexamethasone Sodium Phosphate (Decadron Injection -) 4 mg IVPB Q6H-IV [facility] Last Admin: 08/30/16 08:58 Dose: 4 mg Diltiazem HCl (Cardizem Cd -) 120 mg PO DAILY [facility] Last Admin: 08/30/16 09:05 Dose: Not Given Fentanyl (Duragesic 25mcg Patch -) 1 patch TD Q72H [facility] Last Admin: 08/27/16 19:05 Dose: 1 patch Gabapentin (Neurontin -) 100 mg PO TID [facility] Last Admin: 08/30/16 06:33 Dose: Not Given Amino Acids (Clinimix -) 1,000 mls @ 42 mls/hr IV Q24H [facility] Last Admin: 08/29/16 13:00 Dose: Not Given Potassium Phosphate 30 mm/ (Dextrose) 260 mls @ 65 mls/hr IVPB ONCE ONE PRN Reason: 30 MM/4 HR Stop: 08/30/16 14:08 Latanoprost (Xalatan 0.005% Eye Drops -) 1 drop OU HS [facility] Last Admin: 08/29/16 22:14 Dose: 1 drop Levetiracetam (Keppra Injection -) 250 mg IVPB BID [facility] Last Admin: 08/30/16 09:05 Dose: 250 mg Lidocaine (Lidoderm Patch -) 1 patch TP DAILY [facility] Last Admin: 08/30/16 09:05 Dose: 1 patch Lorazepam (Ativan Injection -) 0.5 mg IM Q6H PRN PRN Reason: ANXIETY Last Admin: 08/30/16 06:38 Dose: 0.5 mg Losartan Potassium (Cozaar -) 50 mg PO DAILY [facility] Last Admin: 08/30/16 09:05 Dose: Not Given Methyl Salicylate (Juan-Mayberry -) 1 applic TP BID PRN Last Admin: 08/26/16 10:43 Dose: 1 applic Metoprolol Tartrate (Lopressor Injection -) 5 mg IVPUSH Q4H PRN PRN Reason: HYPERTENSION Miscellaneous (Duragesic Patch Waste) 1 each TD PRN PRN Morphine Sulfate (Ms Contin -) 15 mg PO BID [facility] Last Admin: 08/30/16 09:05 Dose: Not Given Morphine Sulfate (Morphine Injection -) 1 mg IVPUSH Q6H PRN PRN Reason: PAIN Last Admin: 08/30/16 10:46 Dose: 1 mg Nystatin (Nystop Powder -) 1 applic TP BID [facility] Ondansetron HCl (Zofran Injection) 8 mg IVPB Q12H PRN PRN Reason: NAUSEA Last Admin: 08/26/16 17:24 Dose: 8 mg Pantoprazole Sodium (Protonix -) 40 mg PO DAILY [facility] Last Admin: 08/30/16 09:05 Dose: Not Given Piperacillin Sod/Tazobactam Sod (Zosyn 3.375gm Ivpb (Pre-Docked)) 3.375 gm IVPB Q8H-IV [facility] PRN Reason: Protocol Last Admin: 08/30/16 09:06 Dose: 3.375 gm Timolol Maleate (Timoptic 0.25%) 1 drop OU DAILY [facility] Last Admin: 08/30/16 09:05 Dose: Not Given - Objective Vital Signs: Vital Signs Temperature 98.2 F 08/30/16 09:10 Pulse Rate 91 H 08/30/16 09:10 Respiratory Rate 18 08/30/16 09:10 Blood Pressure 149/78 08/30/16 09:10 O2 Sat by Pulse Oximetry (%) 94 L 08/29/16 21:00 Constitutional: Yes: Calm Cardiovascular: Yes: Regular Rate and Rhythm, S1, S2 Respiratory: Yes: Diminished Gastrointestinal: Yes: Normal Bowel Sounds, Soft Edema: No Neurological: Yes: Other (lethargic) Labs: CBC, BMP 08/30/16 06:45 08/30/16 06:45 INR, PTT INR 1.17 (0.82-1.09) H 08/17/16 18:44 Problem List - Problems (1) Brain metastases Assessment/Plan: radiation steroids sz ppx Code(s): C79.31 - SECONDARY MALIGNANT NEOPLASM OF BRAIN (2) Left arm weakness Assessment/Plan: could be sec to brain mets Code(s): M62.81 - MUSCLE WEAKNESS (GENERALIZED) (3) Leukocytosis Assessment/Plan: right lung opacitation iv sbx Code(s): D72.829 - ELEVATED WHITE BLOOD CELL COUNT, UNSPECIFIED (4) Lung cancer Assessment/Plan: NSCLC with brain mets palliative radioation DNR Code(s): C34.90 - MALIGNANT NEOPLASM OF UNSP PART OF UNSP BRONCHUS OR LUNG
--- NOTE | 2016-08-30 13:06 | PN ---
Progress Note (short form) - Note Progress Note: Renal Follow up for Hypercalcemia Pt seen and examined at the bedside lethagic but arouseble answerers to verbal questions denies any pain s/p radiation tx this am Vital Signs Temperature 98.2 F 08/30/16 09:10 Pulse Rate 91 H 08/30/16 09:10 Respiratory Rate 18 08/30/16 09:10 Blood Pressure 149/78 08/30/16 09:10 O2 Sat by Pulse Oximetry (%) 94 L 08/29/16 21:00 Intake & Output 08/27/16 08/28/16 08/29/16 08/30/16 23:59 23:59 23:59 23:59 Intake Total 654 1300 1012 478 Balance 654 1300 1012 478 Weight 115 lb 8 oz 115 lb 8 oz 116 lb 8 oz 116 lb 3.2 oz Gen: NAD, awake and alert CVS: RRR, No M/R Lungs: Dec BS left lung Abd: soft NT/ND Ext: No edema, clubbing or cyanosis. CBC, BMP 08/30/16 06:45 08/30/16 06:45 Current Medications Al Hydroxide/Mg Hydroxide (Mylanta Oral Suspension -) 30 ml PO BID PRN PRN Reason: INDIGESTION Last Admin: 08/21/16 22:13 Dose: 30 ml Albuterol Sulfate (Ventolin 0.083% Nebulizer Soln -) 1 amp NEB TIDR [facility] Last Admin: 08/30/16 06:35 Dose: 1 amp Dexamethasone Sodium Phosphate (Decadron Injection -) 4 mg IVPB Q6H-IV [facility] Last Admin: 08/30/16 08:58 Dose: 4 mg Fentanyl (Duragesic 25mcg Patch -) 1 patch TD Q72H [facility] Last Admin: 08/27/16 19:05 Dose: 1 patch Gabapentin (Neurontin -) 100 mg PO TID [facility] Last Admin: 08/30/16 06:33 Dose: Not Given Amino Acids (Clinimix -) 1,000 mls @ 42 mls/hr IV Q24H [facility] Last Admin: 08/29/16 13:00 Dose: Not Given Potassium Phosphate 30 mm/ (Dextrose) 260 mls @ 65 mls/hr IVPB ONCE ONE PRN Reason: 30 MM/4 HR Stop: 08/30/16 14:08 Latanoprost (Xalatan 0.005% Eye Drops -) 1 drop OU HS [facility] Last Admin: 08/29/16 22:14 Dose: 1 drop Levetiracetam (Keppra Injection -) 250 mg IVPB BID [facility] Last Admin: 08/30/16 09:05 Dose: 250 mg Lidocaine (Lidoderm Patch -) 1 patch TP DAILY [facility] Last Admin: 08/30/16 09:05 Dose: 1 patch Lorazepam (Ativan Injection -) 0.5 mg IM Q6H PRN PRN Reason: ANXIETY Last Admin: 08/30/16 06:38 Dose: 0.5 mg Methyl Salicylate (Juan-Mayberry -) 1 applic TP BID PRN Last Admin: 08/26/16 10:43 Dose: 1 applic Metoprolol Tartrate (Lopressor Injection -) 5 mg IVPUSH Q4H PRN PRN Reason: HYPERTENSION Miscellaneous (Duragesic Patch Waste) 1 each TD PRN PRN Morphine Sulfate (Morphine Injection -) 1 mg IVPUSH Q6H PRN PRN Reason: PAIN Last Admin: 08/30/16 10:46 Dose: 1 mg Nystatin (Nystop Powder -) 1 applic TP BID [facility] Ondansetron HCl (Zofran Injection) 8 mg IVPB Q12H PRN PRN Reason: NAUSEA Last Admin: 08/26/16 17:24 Dose: 8 mg Piperacillin Sod/Tazobactam Sod (Zosyn 3.375gm Ivpb (Pre-Docked)) 3.375 gm IVPB Q8H-IV [facility] PRN Reason: Protocol Last Admin: 08/30/16 09:06 Dose: 3.375 gm Timolol Maleate (Timoptic 0.25%) 1 drop OU DAILY [facility] Last Admin: 08/30/16 09:05 Dose: Not Given A/P 71 year old woman with PMhx of Breast Ca s/p Chemo and hormonal therapy, Adenocarcinoma of the Lung currently on chemotherapy presented s/p mechanical fall at home and found to have Corrected CA of 10.8. #Hypercalcemia of Malignancy Ca now improved PTH suppressed continue gentle IVF (Clinmix) #Increased lethargy from radiation Tx or from metastatic disease itself supportive care #Hyponatremia from poor oral solute intake +/- ADH release trend Na for now continue clinimix but hold additional IVF #Lung Ca with Brain Mets Supportive Care Chemo as per Oncology Neurosurgery following for continued Radiation Tx on Steroids for brain mets #Hypertension Continue Losartan, Diltizem #Leukocytoiss Reactive vs. UTI vs. Steroids on Zosyn as per ID WBC elevated on presentation Vince Cole DO
[2016-08-30] MEDS: AMINO ACIDS 4.25%/D5W 1,000 ML IV SCH (13:26)
[2016-08-30] MEDS: fentaNYL 25mcg/hr PATCH.TD72 TD SCH (18:09)
--- NOTE | 2016-08-30 18:24 | PN ---
Progress Note (short form) - Note Progress Note: Patient seen and examined LUE weakness, confused, Last Vital Signs Temp Pulse Resp BP Pulse Ox 98.7 F 114 H 18 152/90 94 L 08/30/16 16:55 08/30/16 17:39 08/30/16 16:55 08/30/16 17:39 08/30/16 14:23 HEENT: SHELLEY, EOM Intact Cor: RSR, No murmurs, No gallops Lungs: Clear to P&A Abd: Soft, Normal bowel sounds, No organomegaly Ext:LUE weakness- Abnormal Lab Results 08/30/16 08/30/16 06:45 06:45 WBC 53.2 H* Hgb 10.4 L RDW 19.0 H Neutrophils % 84.0 H Lymphocytes % 1.0 L Sodium 133 L Potassium 3.4 L BUN 29 H D Creatinine 0.4 L D Phosphorus 1.5 L D Magnesium 1.5 L D Current Medications Al Hydroxide/Mg Hydroxide (Mylanta Oral Suspension -) 30 ml PO BID PRN PRN Reason: INDIGESTION Last Admin: 08/21/16 22:13 Dose: 30 ml Albuterol Sulfate (Ventolin 0.083% Nebulizer Soln -) 1 amp NEB TIDR [facility] Last Admin: 08/30/16 14:00 Dose: 1 amp Dexamethasone Sodium Phosphate (Decadron Injection -) 4 mg IVPB Q6H-IV [facility] Last Admin: 08/30/16 14:16 Dose: 4 mg Fentanyl (Duragesic 25mcg Patch -) 1 patch TD Q72H [facility] Last Admin: 08/30/16 18:09 Dose: 1 patch Gabapentin (Neurontin -) 100 mg PO TID [facility] Last Admin: 08/30/16 13:26 Dose: Not Given Amino Acids (Clinimix -) 1,000 mls @ 42 mls/hr IV Q24H [facility] Last Admin: 08/30/16 13:26 Dose: 42 mls/hr Latanoprost (Xalatan 0.005% Eye Drops -) 1 drop OU HS [facility] Last Admin: 08/29/16 22:14 Dose: 1 drop Levetiracetam (Keppra Injection -) 250 mg IVPB BID [facility] Last Admin: 08/30/16 09:05 Dose: 250 mg Lidocaine (Lidoderm Patch -) 1 patch TP DAILY [facility] Last Admin: 08/30/16 09:05 Dose: 1 patch Lorazepam (Ativan Injection -) 0.5 mg IM Q6H PRN PRN Reason: ANXIETY Last Admin: 08/30/16 15:18 Dose: 0.5 mg Methyl Salicylate (Juan-Mayberry -) 1 applic TP BID PRN Last Admin: 08/26/16 10:43 Dose: 1 applic Metoprolol Tartrate (Lopressor Injection -) 5 mg IVPUSH Q4H PRN PRN Reason: HYPERTENSION Last Admin: 08/30/16 17:39 Dose: 5 mg Miscellaneous (Duragesic Patch Waste) 1 each TD PRN PRN Last Admin: 08/30/16 18:13 Dose: 1 each Morphine Sulfate (Morphine Injection -) 1 mg IVPUSH Q6H PRN PRN Reason: PAIN Last Admin: 08/30/16 10:46 Dose: 1 mg Nystatin (Nystop Powder -) 1 applic TP BID [facility] Ondansetron HCl (Zofran Injection) 8 mg IVPB Q12H PRN PRN Reason: NAUSEA Last Admin: 08/26/16 17:24 Dose: 8 mg Piperacillin Sod/Tazobactam Sod (Zosyn 3.375gm Ivpb (Pre-Docked)) 3.375 gm IVPB Q8H-IV [facility] PRN Reason: Protocol Last Admin: 08/30/16 18:10 Dose: 3.375 gm Timolol Maleate (Timoptic 0.25%) 1 drop OU DAILY [facility] Last Admin: 08/30/16 09:05 Dose: Not Given a/p 71 y/o female with lung cancer, on opdivo, now with lue weakness, falls, multiple brain mets on ct scan 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 On decadron 4mg Q 6h Getting WBRT worsening clinical status head CT shows hemorrhagic mets ongoing discussions regarding goals of care
[2016-08-30 20:11] LABS: INR 1.23 (0.82-1.09); PROTHROMBIN TIME (PATIENT) 13.6 SEC (9.98-11.88)
[2016-08-30 20:14] LABS: ACTIVATED PTT 24.1 SECONDS (26.9-34.4)
[2016-08-30] MEDS ORDERED: PT OWN MED DRAWER 7, Y5N ONE (21:11)
[2016-08-30] MEDS: LATANOPROST 0.005% OPHTH SOLN 2.5ML BOTTLE OU SCH (22:23)
[2016-08-30] MEDS: NYSTATIN POWDER 100,000 UNITS/GM - 15 GM TOPICAL POWDER TP SCH (22:23)
[2016-08-31] MEDS: PIPERACILLIN/TAZOB 3.375 GM/50 ML PRE-DOCKED IVPB SCH ×3 (01:08→18:09)
[2016-08-31] MEDS: DEXAMETHASONE SOD PHOSPHATE 4 MG/1 ML VIAL IVPB SCH ×4 (03:37→21:12)
[2016-08-31] MEDS: ALBUTEROL SO4 0.083% IH SOL 2.5 MG/3 ML VIAL.NEB. NEB SCH ×3 (06:15→22:39)
[2016-08-31] MEDS: GABAPENTIN 100 MG CAPSULE (FP) PO SCH ×3 (06:28→22:13)
--- NOTE | 2016-08-31 08:35 | PN ---
Progress Note, Physician Chief Complaint: significant increase in left cerebelar hemorhagic mass on CT head patient lethargic not taking anything by mouth - Current Medication List Current Medications: Active Medications Al Hydroxide/Mg Hydroxide (Mylanta Oral Suspension -) 30 ml PO BID PRN PRN Reason: INDIGESTION Last Admin: 08/21/16 22:13 Dose: 30 ml Albuterol Sulfate (Ventolin 0.083% Nebulizer Soln -) 1 amp NEB TIDR [facility] Last Admin: 08/31/16 06:15 Dose: 1 amp Dexamethasone Sodium Phosphate (Decadron Injection -) 4 mg IVPB Q6H-IV [facility] Last Admin: 08/31/16 03:37 Dose: 4 mg Fentanyl (Duragesic 25mcg Patch -) 1 patch TD Q72H [facility] Last Admin: 08/30/16 18:09 Dose: 1 patch Gabapentin (Neurontin -) 100 mg PO TID [facility] Last Admin: 08/31/16 06:28 Dose: Not Given Amino Acids (Clinimix -) 1,000 mls @ 42 mls/hr IV Q24H [facility] Last Admin: 08/30/16 13:26 Dose: 42 mls/hr Latanoprost (Xalatan 0.005% Eye Drops -) 1 drop OU HS [facility] Last Admin: 08/30/16 22:23 Dose: 1 drop Levetiracetam (Keppra Injection -) 250 mg IVPB BID [facility] Last Admin: 08/30/16 22:22 Dose: 250 mg Lidocaine (Lidoderm Patch -) 1 patch TP DAILY [facility] Last Admin: 08/30/16 09:05 Dose: 1 patch Lorazepam (Ativan Injection -) 0.5 mg IM Q6H PRN PRN Reason: ANXIETY Last Admin: 08/30/16 15:18 Dose: 0.5 mg Methyl Salicylate (Juan-Mayberry -) 1 applic TP BID PRN Last Admin: 08/26/16 10:43 Dose: 1 applic Metoprolol Tartrate (Lopressor Injection -) 5 mg IVPUSH Q4H PRN PRN Reason: HYPERTENSION Last Admin: 08/30/16 17:39 Dose: 5 mg Miscellaneous (Duragesic Patch Waste) 1 each TD PRN PRN Last Admin: 08/30/16 18:13 Dose: 1 each Morphine Sulfate (Morphine Injection -) 1 mg IVPUSH Q6H PRN PRN Reason: PAIN Last Admin: 08/30/16 10:46 Dose: 1 mg Nystatin (Nystop Powder -) 1 applic TP BID [facility] Last Admin: 08/30/16 22:23 Dose: 1 applic Ondansetron HCl (Zofran Injection) 8 mg IVPB Q12H PRN PRN Reason: NAUSEA Last Admin: 08/26/16 17:24 Dose: 8 mg Piperacillin Sod/Tazobactam Sod (Zosyn 3.375gm Ivpb (Pre-Docked)) 3.375 gm IVPB Q8H-IV [facility] PRN Reason: Protocol Last Admin: 08/31/16 01:08 Dose: 3.375 gm Timolol Maleate (Timoptic 0.25%) 1 drop OU DAILY [facility] Last Admin: 08/30/16 09:05 Dose: Not Given - Objective Vital Signs: Vital Signs Temperature 98.8 F 08/31/16 06:00 Pulse Rate 114 H 08/31/16 06:00 Respiratory Rate 20 08/31/16 06:00 Blood Pressure 143/93 08/31/16 06:00 O2 Sat by Pulse Oximetry (%) 96 08/30/16 21:00 Constitutional: Yes: Calm Cardiovascular: Yes: Regular Rate and Rhythm, S1, S2 Respiratory: Yes: Diminished Gastrointestinal: Yes: Normal Bowel Sounds, Soft Edema: No Neurological: Yes: Other (LUE arm weakness lethargic on sternal rub moves her right arm) Labs: CBC, BMP 08/30/16 06:45 08/30/16 06:45 INR, PTT INR 1.23 (0.82-1.09) H 08/30/16 19:30 Fibrinogen 384.0 mg/dL (238-498) 08/30/16 19:30 Problem List - Problems (1) Brain metastases Assessment/Plan: recent Ct head shows incease in size today family meeting with oncology to discuss goals of care DNR radiation steroids sz ppx Code(s): C79.31 - SECONDARY MALIGNANT NEOPLASM OF BRAIN (2) Left arm weakness Assessment/Plan: could be sec to brain mets Code(s): M62.81 - MUSCLE WEAKNESS (GENERALIZED) (3) Leukocytosis Assessment/Plan: right lung opacitation/ pna iv zosyn Code(s): D72.829 - ELEVATED WHITE BLOOD CELL COUNT, UNSPECIFIED (4) Lung cancer Assessment/Plan: NSCLC with brain mets palliative radioation DNR goals of care meeting today Code(s): C34.90 - MALIGNANT NEOPLASM OF UNSP PART OF UNSP BRONCHUS OR LUNG
--- NOTE | 2016-08-31 09:26 | PN ---
Progress Note (short form) - Note Progress Note: Rad Onc WBRT @ 21Gy with no clinical improvement. Repeat CT head demonstrates increase in size of hemorrhagic metastases, edema, and interval acute intraventricular hemorrhage. Remains poorly responsive, repeats same phrases, doesn't seem to be in any discomfort. Prognosis guarded and unlikely to benefit from additional palliative RT. Will therefore d/c tx. Comfort measures and discuss hospice care with family.
[2016-08-31] MEDS ORDERED: PT OWN MED DRAWER 7, Y5N ONE ×2 (09:27→16:40)
[2016-08-31] MEDS: levETIRAcetam 500 MG/5 ML INJECTION VIAL IVPB SCH ×2 (09:36→22:12)
[2016-08-31] MEDS: LIDOCAINE 5% TOPICAL PATCH TP SCH (09:38)
[2016-08-31] MEDS: NYSTATIN POWDER 100,000 UNITS/GM - 15 GM TOPICAL POWDER TP SCH ×2 (09:38→22:13)
[2016-08-31] MEDS: morphine CARPU-JECT 2 MG/1 ML DISP.SYRIN IVPUSH PRN (12:04)
--- NOTE | 2016-08-31 12:48 | PN ---
Progress Note (short form) - Note Progress Note: Patient seen and examined Lying in bed with hemiparesis ( left upper weaker than lower) Perseverating Last Vital Signs Temp Pulse Resp BP Pulse Ox 98.5 F 104 H 20 122/75 97 08/31/16 09:00 08/31/16 12:11 08/31/16 09:00 08/31/16 09:00 08/31/16 12:11 HEENT: SHELLEY, EOM Intact Breasts: right breast retracted Cor: RSR, No murmurs, No gallops Lungs: rhonchi Abd: Soft, Normal bowel sounds, No organomegaly Ext:No significant edema Skin: No rashes, Integument intact Left sided weakness CBC, BMP 08/30/16 06:45 08/30/16 06:45 Current Medications Generic Name Dose Route Start Last Admin Trade Name Freq PRN Reason Stop Dose Admin Al Hydroxide/Mg Hydroxide 30 ml 08/21/16 22:02 08/21/16 22:13 Mylanta Oral Suspension - PO 30 ml BID PRN Administration INDIGESTION Albuterol Sulfate 1 amp 08/28/16 14:00 08/31/16 06:15 Ventolin 0.083% Nebulizer Soln - NEB 1 amp TIDR [facility] Administration Dexamethasone Sodium Phosphate 4 mg 08/28/16 09:00 08/31/16 09:36 Decadron Injection - IVPB 4 mg Q6H-IV [facility] Administration Fentanyl 1 patch 08/27/16 19:00 08/30/16 18:09 Duragesic 25mcg Patch - TD 1 patch Q72H [facility] Administration Gabapentin 100 mg 08/26/16 14:00 08/31/16 06:28 Neurontin - PO Not Given TID [facility] Amino Acids 1,000 mls @ 42 mls/hr 08/27/16 12:32 08/30/16 13:26 Clinimix - IV 42 mls/hr Q24H [facility] Administration Latanoprost 1 drop 08/17/16 22:00 08/30/16 22:23 Xalatan 0.005% Eye Drops - OU 1 drop HS [facility] Administration Levetiracetam 250 mg 08/27/16 23:45 08/31/16 09:36 Keppra Injection - IVPB 250 mg BID [facility] Administration Lidocaine 1 patch 08/25/16 17:00 08/31/16 09:38 Lidoderm Patch - TP 1 patch DAILY [facility] Administration Lorazepam 0.5 mg 08/29/16 10:31 08/30/16 15:18 Ativan Injection - IM 0.5 mg Q6H PRN Administration ANXIETY Methyl Salicylate 1 applic 08/25/16 14:44 08/26/16 10:43 Juan-Mayberry - TP 1 applic BID PRN Administration Metoprolol Tartrate 5 mg 08/29/16 10:31 08/30/16 17:39 Lopressor Injection - IVPUSH 5 mg Q4H PRN Administration HYPERTENSION Miscellaneous 1 each 08/27/16 18:53 08/30/16 18:13 Duragesic Patch Waste TD 1 each PRN PRN Administration Morphine Sulfate 1 mg 08/28/16 10:27 08/31/16 12:04 Morphine Injection - IVPUSH 1 mg Q6H PRN Administration PAIN Nystatin 1 applic 08/30/16 22:00 08/31/16 09:38 Nystop Powder - TP 1 applic BID [facility] Administration Ondansetron HCl 8 mg 08/24/16 07:38 08/26/16 17:24 Zofran Injection IVPB 8 mg Q12H PRN Administration NAUSEA Piperacillin Sod/Tazobactam Sod 3.375 gm 08/28/16 18:00 08/31/16 09:35 Zosyn 3.375gm Ivpb (Pre-Docked) IVPB 3.375 gm Q8H-IV [facility] Administration Protocol Timolol Maleate 1 drop 08/18/16 10:00 08/30/16 09:05 Timoptic 0.25% OU Not Given DAILY [facility] Impression: Lung C Breast Ca EGG SMELLER mets RT- none further planned. Progression of disease in EGG SMELLER. Met with , friend, Viviana Edward, and discussed clinical deterioration. Discussed palliative care and supportive comfort care. Discussed best care to be considered at [place] . in agreement.
--- NOTE | 2016-08-31 12:56 | PN ---
Progress Note (short form) - Note Progress Note: Renal Follow up for Hypercalcemia Pt seen and examined at the bedside earlier today at the bedside pt is awake and alert no complaints Vital Signs Temperature 98.5 F 08/31/16 09:00 Pulse Rate 104 H 08/31/16 12:11 Respiratory Rate 20 08/31/16 09:00 Blood Pressure 122/75 08/31/16 09:00 O2 Sat by Pulse Oximetry (%) 97 08/31/16 12:11 Intake & Output 08/28/16 08/29/16 08/30/16 08/31/16 23:59 23:59 23:59 23:59 Intake Total 1300 1012 1646 436 Balance 1300 1012 1646 436 Weight 115 lb 8 oz 116 lb 8 oz 116 lb 3.2 oz 116 lb Gen: NAD, awake and alert CVS: RRR, No M/R Lungs: Dec BS left lung Abd: soft NT/ND Ext: No edema, clubbing or cyanosis. CBC, BMP 08/30/16 06:45 08/30/16 06:45 Current Medications Al Hydroxide/Mg Hydroxide (Mylanta Oral Suspension -) 30 ml PO BID PRN PRN Reason: INDIGESTION Last Admin: 08/21/16 22:13 Dose: 30 ml Albuterol Sulfate (Ventolin 0.083% Nebulizer Soln -) 1 amp NEB TIDR [facility] Last Admin: 08/31/16 06:15 Dose: 1 amp Dexamethasone Sodium Phosphate (Decadron Injection -) 4 mg IVPB Q6H-IV [facility] Last Admin: 08/31/16 09:36 Dose: 4 mg Fentanyl (Duragesic 25mcg Patch -) 1 patch TD Q72H [facility] Last Admin: 08/30/16 18:09 Dose: 1 patch Gabapentin (Neurontin -) 100 mg PO TID [facility] Last Admin: 08/31/16 06:28 Dose: Not Given Amino Acids (Clinimix -) 1,000 mls @ 42 mls/hr IV Q24H [facility] Last Admin: 08/30/16 13:26 Dose: 42 mls/hr Latanoprost (Xalatan 0.005% Eye Drops -) 1 drop OU HS [facility] Last Admin: 08/30/16 22:23 Dose: 1 drop Levetiracetam (Keppra Injection -) 250 mg IVPB BID [facility] Last Admin: 08/31/16 09:36 Dose: 250 mg Lidocaine (Lidoderm Patch -) 1 patch TP DAILY [facility] Last Admin: 08/31/16 09:38 Dose: 1 patch Lorazepam (Ativan Injection -) 0.5 mg IM Q6H PRN PRN Reason: ANXIETY Last Admin: 08/30/16 15:18 Dose: 0.5 mg Methyl Salicylate (Juan-Mayberry -) 1 applic TP BID PRN Last Admin: 08/26/16 10:43 Dose: 1 applic Metoprolol Tartrate (Lopressor Injection -) 5 mg IVPUSH Q4H PRN PRN Reason: HYPERTENSION Last Admin: 08/30/16 17:39 Dose: 5 mg Miscellaneous (Duragesic Patch Waste) 1 each TD PRN PRN Last Admin: 08/30/16 18:13 Dose: 1 each Morphine Sulfate (Morphine Injection -) 1 mg IVPUSH Q6H PRN PRN Reason: PAIN Last Admin: 08/31/16 12:04 Dose: 1 mg Nystatin (Nystop Powder -) 1 applic TP BID [facility] Last Admin: 08/31/16 09:38 Dose: 1 applic Ondansetron HCl (Zofran Injection) 8 mg IVPB Q12H PRN PRN Reason: NAUSEA Last Admin: 08/26/16 17:24 Dose: 8 mg Piperacillin Sod/Tazobactam Sod (Zosyn 3.375gm Ivpb (Pre-Docked)) 3.375 gm IVPB Q8H-IV [facility] PRN Reason: Protocol Last Admin: 08/31/16 09:35 Dose: 3.375 gm Timolol Maleate (Timoptic 0.25%) 1 drop OU DAILY [facility] Last Admin: 08/30/16 09:05 Dose: Not Given A/P 71 year old woman with PMhx of Breast Ca s/p Chemo and hormonal therapy, Adenocarcinoma of the Lung currently on chemotherapy presented s/p mechanical fall at home and found to have Corrected CA of 10.8. #Hypercalcemia of Malignancy Ca now improved PTH suppressed continue gentle IVF (Clinmix) #Lung Ca with Brain Mets repeat imaging shows worsening hemorragic mets Comfort care measures as per family with hospice placement no further labs to be drawn Vince Cole DO
[2016-08-31] MEDS: AMINO ACIDS 4.25%/D5W 1,000 ML IV SCH (14:51)
--- NOTE | 2016-08-31 15:53 | DS ---
Physical Examination Vital Signs: Vital Signs Temperature 98.5 F 08/31/16 14:33 Pulse Rate 92 H 08/31/16 14:33 Respiratory Rate 18 08/31/16 14:33 Blood Pressure 105/60 08/31/16 14:33 O2 Sat by Pulse Oximetry (%) 97 08/31/16 12:11 Cardiovascular: Yes: WNL Respiratory: Yes: WNL Gastrointestinal: Yes: WNL Labs: CBC, BMP 08/30/16 06:45 08/30/16 06:45 Discharge Summary Reason For Visit: URINARY TRACT INFECTION, FALL Current Active Problems Asthma (Acute) Brain metastases (Acute) [place] of lung (Acute) COPD (chronic obstructive pulmonary disease) (Acute) Falls (Acute) HTN (hypertension) (Acute) Hypercalcemia (Acute) Left arm weakness (Acute) Leukocytosis (Acute) Lung cancer (Acute) UTI (urinary tract infection) (Acute) Hospital Course: (1) Brain metastases Assessment/Plan: recent Ct head shows incease in size today family meeting with oncology to discuss goals of care DNR radiation steroids sz ppx Code(s): C79.31 - SECONDARY MALIGNANT NEOPLASM OF BRAIN (2) Left arm weakness Assessment/Plan: could be sec to brain mets Code(s): M62.81 - MUSCLE WEAKNESS (GENERALIZED) (3) Leukocytosis Assessment/Plan: right lung opacitation/ pna iv zosyn Code(s): D72.829 - ELEVATED WHITE BLOOD CELL COUNT, UNSPECIFIED (4) Lung cancer Assessment/Plan: NSCLC with brain mets palliative radioation DNR goals of care meeting today Code(s): C34.90 - MALIGNANT NEOPLASM OF UNSP PART OF UNSP BRONCHUS OR LUNG appreciate palliative care note -> Note took place at 1130. Family meeting with Yves, Dr Palacios, family friend and this agent. Dr Palacios discussed medical events of last week and Yves in agreement that comfort measures is appropriate going forward. Yves in agreement that [facility] will best suite her needs. ELY Nixon notified [place] to activate application. HAS BED AT [facility] DISCHARGE [facility] Condition: Guarded - Instructions Referrals: Maxim Cowan MD [Primary Care Provider] - Disposition: DISCHARGE TO HOSPICE-HOME - Home Medications Comprehensive Discharge Medication List: Ambulatory Orders Atorvastatin Calcium [Lipitor] 10 mg PO DAILY 11/24/12 Fluticasone Propionate [Flovent Hfa] 1 inh IH DAILY 11/24/12 Losartan Potassium [Cozaar -] 50 mg PO DAILY 11/24/12 Timolol [Betimol] 1 drop OU DAILY 11/24/12 Tiotropium [place] [Spiriva] 1 inh IH DAILY 11/24/12 Travoprost (Benzalkonium) [Travatan 0.004% Eye Drop] 1 drop OU HS 11/24/12 Ca/D3/Mag#11/Zinc/Chemist Instrumentation/Rene/Bor [Caltrate 600+D Plus Tablet] 1 each PO DAILY 10/28 Diltiazem HCl [Diltiazem ER] 120 mg PO DAILY 08/17/16
[2016-08-31] MEDS: TIMOLOL 0.25% OPHTHALMIC SOL 5 ML BOTTLE OU SCH (18:08)
[2016-08-31 18:39] VITALS: BP 136/67; PULSE 93; TEMP 97.7
--- NOTE | 2016-08-31 18:50 | PN ---
Progress Note (short form) - Note Progress Note: NEUROLOGY FOLLOW-UP: Events reviewed, Patient examined. 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 Rising WBC now >50 K on zosyn. Pt c/o headache. Awake, alert, moaning. Follows simple commands. Knows she is in hospital but not [facility]. Mild Right and moderately severe left hemipareses. Brisk reflexes and bilateral Babinski signs. CT of head (08/30/16,reviewed): Multiple large hemorrhagic metastases including Left cerebellum; Right parietal; Right mesial temporal; and splenium of the corpus collosum. IMP: Multiple hemorrhagic metastases c/w NSSC. These have progressed since the admission studies. Suggest: Continue decadron although this may be influencing the leukocytosis. Pain medications for headache due to probable intracranial hypertension. Hospice care. Prognosis grave. Thank you very much, Richard Miller MD
[2016-08-31] MEDS: LATANOPROST 0.005% OPHTH SOLN 2.5ML BOTTLE OU SCH (22:13)
[2016-09-01] MEDS: PIPERACILLIN/TAZOB 3.375 GM/50 ML PRE-DOCKED IVPB SCH (02:17)
[2016-09-01] MEDS: DEXAMETHASONE SOD PHOSPHATE 4 MG/1 ML VIAL IVPB SCH ×2 (03:18→09:00)
[2016-09-01] MEDS: GABAPENTIN 100 MG CAPSULE (FP) PO SCH (06:07)
[2016-09-01] MEDS: ALBUTEROL SO4 0.083% IH SOL 2.5 MG/3 ML VIAL.NEB. NEB SCH (06:10)
== END 2016-09-01 10:43 | disposition hospice, inpatient (51) | DRG 54 ==
LOC: JER 17:03 → JERBED 21:02 → J6S 23:06 → J7W 08-22 14:37
PROVIDERS: ADMIT Family Medicine; ATTEND Family Medicine
PROC: 3E033GC Introduction of Other Therapeutic Substance into Peripheral Vein, Percutaneous Approach (ICD-10-PCS; principal; 2016-08-20)
DX: C79.31 Secondary malignant neoplasm of brain (principal); G93.6 Cerebral edema; N30.00 Acute cystitis without hematuria; C34.90 Malignant neoplasm of unspecified part of unspecified bronchus or lung; E87.1 Hypo-osmolality and hyponatremia; J98.11 Atelectasis; D72.829 Elevated white blood cell count, unspecified; J44.9 Chronic obstructive pulmonary disease, unspecified; J45.909 Unspecified asthma, uncomplicated; Z87.891 Personal history of nicotine dependence; Z85.3 Personal history of malignant neoplasm of breast; E83.52 Hypercalcemia; I10 Essential (primary) hypertension; R29.6 Repeated falls; M62.81 Muscle weakness (generalized); Z86.73 Personal history of transient ischemic attack (TIA), and cerebral infarction without residual deficits; G83.24 Monoplegia of upper limb affecting left nondominant side; R26.81 Unsteadiness on feet; B96.20 Unspecified Escherichia coli [E. coli] as the cause of diseases classified elsewhere; M54.2 Cervicalgia
CPT/HCPCS: 36415; 70450-TC; 70553-TC; 71010-TC; 72050-TC; 73030-TC-LT; 80048; 80053; 81003; 81015; 82310; 82550; 83735; 83970; 84100; 84484; 85025; 85384; 85610; 85730; 87040; 87086; 87186; 93005; 93010; 94640; 97116-GP; 97162-PG; 99284-25; J1644